=== PATIENT | male | born 1950 | race Caucasian/White ===

== ENCOUNTER → 2017-12-04 | Outpatient (CLI) | payer MEDICARE ==
[2017-12-04 08:35] LABS: HCT 39.3 % (39.0-53.0); HGB 12.8 gm/dL (13.0-17.5); Hypochromasia Slight; MCH 28.4 pg (25.0-35.0); MCHC 32.6 g/dL (31.0-37.0); Mean Platelet Volume 7.1; Platelet Count 403 k/uL (150-450); RBC 4.51 m/uL (4.30-5.90); RDW 14.4 % (11.5-15.5)
[2017-12-04 08:44] LABS: Anion Gap 11 mmol/L; Blood Urea Nitrogen 22 mg/dL (9-20); Carbon Dioxide 27 mmol/L (22-30); Chloride 101 mmol/L (98-107); Glucose 111 mg/dL (74-99); Potassium 4.9 mmol/L (3.5-5.1); Sodium 139 mmol/L (137-145)
== END | disposition home or self-care (01) ==
LOC: LABWHC1 08:06
PROVIDERS: ATTEND Internal Medicine Interventional Cardiology
DX: I25.10 Atherosclerotic heart disease of native coronary artery without angina pectoris (principal); I10 Essential (primary) hypertension
CPT/HCPCS: 36415; 80048; 85027

== ENCOUNTER → 2017-12-14 | Outpatient (CLI) | payer MEDICARE ==
--- NOTE | 2017-12-15 20:50 | CT ---
EXAMINATION TYPE: CT abdomen pelvis w con DATE OF EXAM: 12/14/2017 COMPARISON: NONE HISTORY: c/o left sided abdominal pain X 1 month, weight loss, loss of appetite, change in bowel habi ts. CT DLP: 839.5 mGycm Automated exposure control for dose reduction was used. TECHNIQUE: Helical acquisition of images from the lung bases through the pelvis have been completed. CONTRAST: Performed with Oral Contrast and with IV Contrast, patient injected with 100 mL of Isovue 300. FINDINGS: Along the right hemidiaphragm there are soft tissue nodules present, there is associated as cites at the dome of the liver, omental caking is present. LUNG BASES: Indeterminate soft tissue pulmonary nodules are present at the lung bases, largest at the left lung base measures approximately 12 mm. There is a small left pleural effusion. Patient is post median sternotomy. Coronary artery calcifications present.. AORTA: No significant abnormality is appreciated. LIVER/GB: Liver shows low attenuation focus in the inferior right lobe measuring 8 to 9 mm. Dependent high density present within the gallbladder compatible with stones. PANCREAS: No significant abnormality is seen. SPLEEN: No significant abnormality is seen. ADRENALS: No significant abnormality is seen. KIDNEYS: No significant abnormality is seen. REPRODUCTIVE ORGANS: Prostate is enlarged. There is some associated calcifications. BOWEL: Diverticular changes associated with the sigmoid colon. FREE AIR: No Free Air visible. ASCITES: Moderate ascites is present, ascites extends into the right inguinal canal, there is right inguinal hernia. PELVIC ADENOPATHY: None visualized. RETROPERITONEAL ADENOPATHY: No Retroperitoneal Adenopathy visible. URINARY BLADDER: No significant abnormality is seen. OSSEOUS STRUCTURES: No significant abnormality is seen. IMPRESSION: FINDINGS COMPATIBLE WITH METASTATIC DISEASE. ASCITES. CHOLELITHIASIS.
== END | disposition home or self-care (01) ==
LOC: RADCTMAIN 18:38
PROVIDERS: ATTEND Internal Medicine
DX: K80.20 Calculus of gallbladder without cholecystitis without obstruction (principal); R18.8 Other ascites; R63.4 Abnormal weight loss
CPT/HCPCS: 74177; Q9967

== ENCOUNTER 2017-12-20 12:10 | Day surgery (SDC) | payer MEDICARE ==
[2017-12-20 12:59] VITALS: RESP 16; TEMP 97.5
[2017-12-20 13:00] LABS: Platelet Count 421 k/uL (150-450)
[2017-12-20 13:07] LABS: INR 1.1 (<1.2); Prothrombin Time 10.5 sec (9.0-12.0)
--- NOTE | 2017-12-20 14:54 | US ---
EXAMINATION TYPE: US paracentesis abd w/image DATE OF EXAM: 12/20/2017 COMPARISON: NONE HISTORY: Ascites. PROCEDURE: Maximal barrier technique was utilized. The skin overlying a suitable pocket of fluid was localized with ultrasound and the overlying skin was prepped and draped. Ultrasound was utilized with sterile technique. Lidocaine was used for local anesthesia and a skin mabel made with a scalpel. Catheter was advanced under direct ultrasound guidance into a suitable pocket of fluid and approximately 4.8 liter s of yellow fluid were removed. Catheter was withdrawn and hemostasis achieved. There is no immedia te complication; the patient is discharged in stable condition. IMPRESSION: STATUS POST ULTRASOUND GUIDED PARACENTESIS FOR PALLIATION OF ASCITES. THIS PROCEDURE WA S PERFORMED BY THE UNDERSIGNED. Specimen sent for laboratory analysis.
[2017-12-20 14:57] VITALS: BP 130/58; PULSE 71
[2017-12-20 17:29] LABS: Color,BF Yellow
[2017-12-20 17:30] LABS: Appearance,BF Clear; Nucleated Cells, Body Fluid 223 /uL; RBC, Body Fluid 240 /uL
[2017-12-20 17:33] LABS: Mononuclear WBC,Body Fluid 98 %; Polynuclear WBC,Body Fluid 2 %; Total Cells Counted,Body Fluid 100
[2017-12-21 00:53] LABS: Total Protein, Body Fluid 4600 mg/dL
== END 2017-12-20 15:03 | disposition home or self-care (01) ==
LOC: RADPROMAIN 12:10
PROVIDERS: ATTEND Internal Medicine
DX: R18.8 Other ascites (principal)
CPT/HCPCS: 49083; 82945; 83615; 84157; 85049; 85610; 87070; 87205; 88108; 88305; 89050

== ENCOUNTER 2018-01-11 07:28 | Day surgery (SDC) | payer MEDICARE ==
[2018-01-08 11:52] VITALS: BMI 24.3
[~2018-01-11 07:28] MED LIST: LACTATED RINGERS 1,000 ML IV SCH; LIDOCAINE 1% 20 ML VIAL (10MG/ML) FOR IV START INTRADERMA PRN; MIDAZOLAM 2 MG/2 ML VIAL IV PRN
[2018-01-11 08:02] VITALS: TEMP 97.8
[2018-01-11 08:23] LABS: Glucose,Whole Blood 113 mg/dL (75-99)
[2018-01-11] MEDS ORDERED: LIDOCAINE 1% INJ 10MG/ML (20 ML MDV) ONE (08:40)
[2018-01-11] MEDS ORDERED: GLYCOPYRROLATE 0.2 MG/ML 2 ML VIAL ONE (08:40)
[2018-01-11] MEDS ORDERED: PROPOFOL 10 MG/ML 20 ML VIAL IV ONE (08:40)
--- NOTE | 2018-01-11 09:13 | P.PCN ---
Date of Procedure: 01/11/18 Procedure(s) Performed: Brief history: Patient is a pleasant 67-year-old white male, scheduled for an elective upper endoscopy as well as colonoscopy as a part of evaluation of abdominal pain, new onset ascites. The patient recently had a CT of the abdomen and pelvis done for abdominal distention in November 2017 and was noted to have new onset ascites and omental caking suspicious for malignancy. He had diagnostic paracentesis done and 4 L of fluid was aspirated for cytology was negative for malignancy. He scheduled for an upper endoscopy as well as colonoscopy to evaluate further Procedure performed: Esophagogastroduodenoscopy with multiple biopsies Colonoscopy Preoperative diagnosis: Abdominal pain and weight loss New onset ascites, CAT scan of the abdomen showing omental caking suspicious for metastasis Anesthesia: MAC Procedure: After informed consent was obtained from the patient was brought into the endoscopy unit and IV sedation was administered by anesthesia under continuous monitoring. Initially upper endoscopy was done. The Olympus GF 160 video endoscope was inserted inserted into the mouth and esophagus intubated without any difficulty and was gradually advanced into the stomach and duodenum and carefully examined. The bulb and second part of the duodenum appeared normal. The scope was then withdrawn into the stomach adequately insufflated with air and upon careful examination the mucosa of the antrum and body showed diffuse mucosal thickening with erythema and multiple biopsies were done to rule out infiltrating neoplasm/lienitis plastica. The stomach was adequately insufflated with air. There were no mass lesions identified. No ulcerations seen. The scope was then withdrawn into the esophagus. The GE junction was located at 40 cm to the incisors. It appeared regular with no erythema erosions or ulcerations. Rest of the esophagus appeared normal. Patient tolerated the procedure well. At this time the patient continued to remain sedation. Initial digital rectal examination was normal. Olympus CF 160 video colonoscope was then inserted into the rectum and gradually advanced to the cecum without any difficulty. Careful examination was performed as the scope was gradually being withdrawn. The prep was excellent. The cecum, ascending colon, transverse colon, descending colon, sigmoid colon and rectum appeared normal. Moderate sigmoid diverticulosis seen. Retroflexion was performed in the rectum and no lesions were noted. Patient tolerated the procedure well. Impression: 1. Upper endoscopy revealed diffuse mucosal thickening involving the body and antrum of the stomach with some friability and multiple biopsies were done to rule out infiltrating neoplasm 2. Colonoscopy revealed scattered sigmoid diverticulosis but no evidence of colitis or colorectal neoplasia Recommendations: Findings of this examination were discussed with the patient as well as his family. He was advised to follow with the biopsy results. He will be seen in office in 1 week.
[2018-01-11 09:15] VITALS: RESP 16
[2018-01-11 09:28] VITALS: BP 111/69; PULSE 82
== END 2018-01-11 10:10 | disposition home or self-care (01) ==
LOC: ORWHC2ENDO 07:28
PROVIDERS: ATTEND Internal Medicine Gastroenterology
DX: C16.2 Malignant neoplasm of body of stomach (principal); K57.30 Diverticulosis of large intestine without perforation or abscess without bleeding; R18.8 Other ascites; I25.10 Atherosclerotic heart disease of native coronary artery without angina pectoris; I25.2 Old myocardial infarction; I10 Essential (primary) hypertension; E78.5 Hyperlipidemia, unspecified; E11.9 Type 2 diabetes mellitus without complications; Z95.1 Presence of aortocoronary bypass graft; Z79.82 Long term (current) use of aspirin; Z79.84 Long term (current) use of oral hypoglycemic drugs; Z79.899 Other long term (current) drug therapy; Z88.0 Allergy status to penicillin; Z91.048 Other nonmedicinal substance allergy status
CPT/HCPCS: 88305; 88342; 45378; 43239; J2001; J2704

== ENCOUNTER 2018-02-01 10:30 | Day surgery (SDC) | payer MEDICARE ==
[2018-01-31 12:01] VITALS: BMI 25.8
[2018-02-01 09:46] VITALS: TEMP 97.9
--- NOTE | 2018-02-01 10:14 | P.GSHP ---
History of Present Illness H&P Date: 02/01/18 Chief Complaint: Left supraclavicular adenopathy 59-year-old male recently diagnosed with suspected gastric cancer. Was seen by oncology 2 days ago and found to have a suspicious lymph node in the left supraclavicular region. Patient has had weight loss. Mild abdominal discomfort. Some bloating. Patient himself did not notice this lymph node. Past Medical History Past Medical History: Coronary Artery Disease (CAD), Cancer, Chest Pain / Angina , Diabetes Mellitus, Hyperlipidemia, Hypertension, Myocardial Infarction ([place]), Vascular Disorder Additional Past Medical History / Comment(s): newly dx. w/stomach cancer Last Myocardial Infarction Date:: 1992 History of Any Multi-Drug Resistant Organisms: None Reported Past Surgical History: Coronary Bypass/CABG, Heart Catheterization Additional Past Surgical History / Comment(s): CABG 1992, per pt 5 quarts drained from abdomen 12/20/17, EGD,colonoscopy Past Anesthesia/Blood Transfusion Reactions: No Reported Reaction Smoking Status: Former smoker - Past Family History Father Family Medical History: Cancer Medications and Allergies Home Medications Medication Instructions Recorded Confirmed Type Aspirin 325 mg PO DAILY 04/15/15 01/31/18 History Atenolol [Tenormin] 50 mg PO BID 04/15/15 01/31/18 History Atorvastatin Calcium [Lipitor] 40 mg PO W/SUPPER 04/15/15 01/31/18 History Enalapril Maleate [Vasotec] 5 mg PO W/SUPPER 04/15/15 01/31/18 History Folic Acid 400 mcg PO DAILY 04/15/15 01/31/18 History Vitamin B Complex 1 each PO DAILY 04/15/15 01/31/18 History metFORMIN HCL [Glucophage] 500 mg PO W/SUPPER 04/15/15 01/31/18 History Isosorbide Mononitrate ER [Imdur] 60 mg PO DAILY 12/18/17 01/31/18 History amLODIPine [Norvasc] 5 mg PO DAILY 12/18/17 01/31/18 History Isosorbide Mononitrate ER [Imdur] 30 mg PO AC-SUPPER 12/20/17 01/31/18 History Allergies Allergy/AdvReac Type Severity Reaction Status Date / Time Iodine and Iodide Containing Allergy Rash/Hives Verified 02/01/18 09:15 Produc mold Allergy per Verified 02/01/18 09:15 allergy testing Penicillins Allergy Unknown Verified 02/01/18 09:15 Childhood Surgical - Exam Vital Signs Temp Pulse Resp BP Pulse Ox 97.9 F 72 18 130/65 98 02/01/18 09:28 02/01/18 09:28 02/01/18 09:28 02/01/18 09:28 02/01/18 09:28 Physical exam: General: Well-developed, well-nourished HEENT: Normocephalic, sclerae nonicteric, left supraclavicular lymph node firm measuring 7-8 mm in size Abdomen: Nontender, nondistended Extremities: No edema Neuro: Alert and oriented Assessment and Plan (1) Lymphadenopathy Narrative/Plan: Will proceed with lymph node biopsy at this time. Risks of bleeding infection and nerve injury were reviewed. He understands and wishes to proceed. Status: Acute Code(s): R59.1 - GENERALIZED ENLARGED LYMPH NODES SNOMED Code( s): 38333816
[~2018-02-01 10:30] MED LIST changes: +DEXAMETHASONE SOD PHOSPHATE 10 MG/ML 1 ML VIAL IV ONE; +HEPARIN SODIUM,PORCINE 5,000 UNIT/ML 1 ML VIAL SQ ONE; +HYDROmorphone 0.5 MG/0.5 ML SYRINGE IVP PRN; -MIDAZOLAM 2 MG/2 ML VIAL IV PRN; +MIDAZOLAM 2 MG/2 ML VIAL ONE; +PROPOFOL 10 MG/ML 20 ML VIAL IV ONE; +Pre Op ABX Message 1 EACH MISC MISCELLANE ONE; +ROPIVACAINE 5 MG/ML 30 ML VIAL MISCELLANE ONE; +fentaNYL (PF) 50 MCG/ML 2 ML AMP ONE
[2018-02-01 10:48] LABS: Glucose,Whole Blood 105 mg/dL (75-99)
[2018-02-01] MEDS ORDERED: HYDROcodone/APAP 5-325MG 1 EACH TAB PO PRN (11:13)
[2018-02-01] MEDS ORDERED: NALOXONE 0.4 MG/ML 1 ML VIAL IV PRN (11:13)
[2018-02-01 11:15] VITALS: BP 113/66; PULSE 79; RESP 16
--- NOTE | 2018-02-01 11:17 | P.OP ---
Date of Procedure: 02/01/18 Procedure(s) Performed: PREOPERATIVE DIAGNOSIS: Left supra clavicular adenopathy POSTOPERATIVE DIAGNOSIS: Same PROCEDURE: Excision left supraclavicular lymph node SURGEON: Jewell EBL: Minimal ANESTHESIA: Sedation COMPLICATIONS: None OPERATIVE PROCEDURE: Patient placed in the operating table in the supine position. The patient's neck was prepped and draped in usual sterile fashion. A transverse incision was made overlying the lower aspect of the left neck using the scalpel. The platysmal layer was divided using electrocautery. Blunt dissection then ensued. A small lymph node and subsequently the palpable lymph node were both identified and excised using blunt dissection with spot cautery. These were sent to pathology fresh. The largest lymph node measured about 9 mm in size. The subcutaneous tissues were closed using 3-0 Vicryl sutures and the skin using 4-0 Monocryl sutures. Dermabond was then used. DISPOSITION: Stable to recovery room
== END 2018-02-01 12:30 | disposition home or self-care (01) ==
LOC: OR 10:30
PROVIDERS: ATTEND Surgery
DX: C77.0 Secondary and unspecified malignant neoplasm of lymph nodes of head, face and neck (principal); C16.9 Malignant neoplasm of stomach, unspecified; I25.119 Atherosclerotic heart disease of native coronary artery with unspecified angina pectoris; I10 Essential (primary) hypertension; Z87.891 Personal history of nicotine dependence; E78.5 Hyperlipidemia, unspecified; E11.9 Type 2 diabetes mellitus without complications; Z95.1 Presence of aortocoronary bypass graft; I25.2 Old myocardial infarction; Z79.84 Long term (current) use of oral hypoglycemic drugs; Z79.82 Long term (current) use of aspirin; Z79.899 Other long term (current) drug therapy; Z88.0 Allergy status to penicillin; Z91.048 Other nonmedicinal substance allergy status; Z91.09 Other allergy status, other than to drugs and biological substances
CPT/HCPCS: 38500; 88342; 88307; 88341; J2250; J1644; J1100; J3010; J2795; J2704

== ENCOUNTER → 2018-02-02 | Outpatient (CLI) | payer MEDICARE ==
--- NOTE | 2018-02-02 19:27 | PE ---
EXAMINATION TYPE: PET CT fusion skull to thigh DATE OF EXAM: 02/02/2018 COMPARISON: CT abdomen and pelvis December 14, 2017 HISTORY: Gastric cancer newly diagnosed December 2017 TECHNIQUE: Following the intravenous administration of 12.243 mCi of F-18 FDG, whole body images are performed from the skull base to the midthigh. Images are reviewed on the computer in the coronal, axial, and sagittal planes. Reconstructed rotating images are created on independent workstation and reviewed on the computer. A noncontrast CT is performed in conjunction with the PET scan. SCAN: Initial Scan FINDINGS: SKULL BASE AND NECK: No suspicious hypermetabolic uptake is seen. CHEST, MEDIASTINUM, AND HILAR REGION: No suspicious hypermetabolic uptake is present. There are sligh tly more prominent small left greater than right pleural effusions on current study. ABDOMEN AND PELVIS: There is redemonstration of moderate to severe diffuse abdominal and pelvic ascit es. There are hypermetabolic nodular implants just below right hemidiaphragm redemonstrated, for refe rence axial image 114 max SUV is 5.71. There are additional hypermetabolic, peritoneal implants anteriorly in the upper to midabdomen is pro minent level is near axial image 185 to right of midline where max SUV is 4.73. There is slightly mor e prominent hypermetabolic uptake in left sided peritoneal deposits anteriorly axial image 167 with m ax SUV of 5.56. There is hypermetabolic uptake superior hepatogastric region near axial image 136 likely correspondin g to adenopathy at this level seen better on recent contrast-enhanced CT with extension inferiorly to involve the perigastric region. Max SUV at this level is 5.15. There is asymmetric thickening right rectum with hypermetabolic uptake, max SUV is 7.29 axial image 2 52. There is some diffuse uptake throughout portions of bowel. Focal suspicious uptake within stomach is not well visualized. OSSEOUS STRUCTURES: No suspicious hypermetabolic uptake in osseous structures is seen. OTHER CT: There is mild to moderate calcified plaque bilateral carotid bulbs, right greater than left . Post CABG changes with mediastinal clips and sternal wires is identified. Moderate left atrial dilata tion is redemonstrated. There are suspicious scattered bilateral lung nodules most prominent in the lower lobes, for referenc e 3 are noted on axial image 106 for reference. Largest on the left laterally measures 1.3 x 0.7 cm w ithout abnormal hypermetabolic uptake. Hematogenous metastatic disease needs to BE considered despite lack of uptake due to small size of nodules. Numerous calcified gallstones are seen dependently in the gallbladder. Thin partially calcified rim laterally and spleen axial image 148 is incidentally noted. There is severe calcified plaque of aorta extending into branch vessels. There is prominent diverticulosis in the left and sigmoid colon. Mild to moderate multilevel spurring in the spine is present. . IMPRESSION: Recurrent moderate to large amount of abdominal and pelvic ascites with peritoneal carcin omatosis identified. Suspicious lesion noted right rectum, correlate with direct digital rectal exam. Does not appear extraluminal or drop lesion. Suspect early hematogenous metastatic disease to the vishal ng bases with several scattered parenchymal subcentimeter nodules, they do not show hypermetabolic up take currently. Increasing small left and right pleural effusions are noted.
== END | disposition home or self-care (01) ==
LOC: RADPETMAIN 15:16
PROVIDERS: ATTEND Internal Medicine Hematology & Oncology
DX: C16.2 Malignant neoplasm of body of stomach (principal); R18.8 Other ascites; J90 Pleural effusion, not elsewhere classified
CPT/HCPCS: 78815; A9552

== ENCOUNTER 2018-02-21 11:47 | Day surgery (SDC) | payer MEDICARE ==
[2018-02-20 08:52] VITALS: BMI 24.7
[~2018-02-21 11:47] MED LIST changes: -DEXAMETHASONE SOD PHOSPHATE 10 MG/ML 1 ML VIAL IV ONE; -HEPARIN SODIUM,PORCINE 5,000 UNIT/ML 1 ML VIAL SQ ONE; -HYDROmorphone 0.5 MG/0.5 ML SYRINGE IVP PRN; -LIDOCAINE 1% 20 ML VIAL (10MG/ML) FOR IV START INTRADERMA PRN; +MIDAZOLAM 2 MG/2 ML VIAL IV PRN; -MIDAZOLAM 2 MG/2 ML VIAL ONE; +ONDANSETRON 4 MG/2 ML VIAL IVP ONE; -PROPOFOL 10 MG/ML 20 ML VIAL IV ONE; -ROPIVACAINE 5 MG/ML 30 ML VIAL MISCELLANE ONE; +fentaNYL (PF) 50 MCG/ML 2 ML AMP IV PRN; -fentaNYL (PF) 50 MCG/ML 2 ML AMP ONE
[2018-02-21 12:14] VITALS: TEMP 96.9
[2018-02-21] MEDS ORDERED: CLINDAMYCIN 600 MG in DEXTROSE 5% IN WATER 50 ML IVPB STA ×2 (12:14)
--- NOTE | 2018-02-21 12:15 | P.GSHP ---
History of Present Illness H&P Date: 02/21/18 Chief Complaint: Metastatic gastric cancer Patient here today for Port-A-Cath placement. Recently diagnosed with gastric cancer and underwent a left supraclavicular lymph node biopsy one week ago which also showed metastatic disease. Patient to start chemotherapy next week or so. Past Medical History Past Medical History: Coronary Artery Disease (CAD), Cancer, Chest Pain / Angina , Diabetes Mellitus, Hyperlipidemia, Hypertension, Myocardial Infarction ([place]), Vascular Disorder Additional Past Medical History / Comment(s): Stomach cancer. Last Myocardial Infarction Date:: 1992 History of Any Multi-Drug Resistant Organisms: None Reported Past Surgical History: Coronary Bypass/CABG, Heart Catheterization Additional Past Surgical History / Comment(s): CABG 1992, per pt 5 quarts drained from abdomen 12/20/17, drained again 02/07/18, EGD, colonoscopy, lymph node removed from left side of neck. Past Anesthesia/Blood Transfusion Reactions: No Reported Reaction Past Psychological History: No Psychological Hx Reported Smoking Status: Former smoker Past Alcohol Use History: Occasional Additional Past Alcohol Use History / Comment(s): Quit smoking in 1992. Past Drug Use History: None Reported - Past Family History Father Family Medical History: Cancer Additional Family Medical History / Comment(s): Lung cancer Medications and Allergies Home Medications Medication Instructions Recorded Confirmed Type Aspirin 325 mg PO DAILY 04/15/15 02/21/18 History Atenolol [Tenormin] 50 mg PO BID 04/15/15 02/21/18 History Atorvastatin Calcium [Lipitor] 40 mg PO W/SUPPER 04/15/15 02/21/18 History Enalapril Maleate [Vasotec] 5 mg PO W/SUPPER 04/15/15 02/21/18 History Folic Acid 400 mcg PO DAILY 04/15/15 02/21/18 History Vitamin B Complex 1 each PO DAILY 04/15/15 02/21/18 History metFORMIN HCL [Glucophage] 500 mg PO W/SUPPER 04/15/15 02/21/18 History Isosorbide Mononitrate ER [Imdur] 60 mg PO QAM 12/18/17 02/21/18 History amLODIPine [Norvasc] 5 mg PO QAM 12/18/17 02/21/18 History Isosorbide Mononitrate ER [Imdur] 30 mg PO AC-SUPPER 12/20/17 02/21/18 History Allergies Allergy/AdvReac Type Severity Reaction Status Date / Time Iodine and Iodide Containing Allergy Rash/Hives Verified 02/21/18 12:03 Produc mold Allergy per Verified 02/21/18 12:03 allergy testing Penicillins Allergy Unknown Verified 02/21/18 12:03 Childhood Surgical - Exam Physical exam: General: Well-developed, slightly malnourished appearing HEENT: Normocephalic, sclerae nonicteric Abdomen: Nontender, nondistended Extremities: No edema Neuro: Alert and oriented Assessment and Plan (1) Gastric cancer Narrative/Plan: Will proceed with Port-A-Cath placement at this time. Risks of bleeding, infection, DVT, pneumothorax, catheter malfunction, anesthesia related complications were discussed. The patient understands and wishes to proceed. Current Visit: Yes Status: Acute Code(s): C16.9 - MALIGNANT NEOPLASM OF STOMACH, UNSPECIFIED SNOMED Code(s): 001349079
[2018-02-21] MEDS ORDERED: LIDOCAINE 1% 20 ML VIAL (10MG/ML) FOR IV START INTRADERMA ONE (12:18)
[2018-02-21] MEDS ORDERED: DEXAMETHASONE SOD PHOS (MDV) 100 MG/10 ML VIAL IV ONE (12:19)
[2018-02-21] MEDS ORDERED: HEPARIN SODIUM,PORCINE 5,000 UNIT/ML 1 ML VIAL SQ ONE (12:20)
[2018-02-21 12:22] LABS: Glucose,Whole Blood 91 mg/dL (75-99)
[2018-02-21] MEDS ORDERED: ePHEDrine SULFATE/0.9% NACL/PF 50 MG/5 ML SYRINGE IV ONE (12:57)
[2018-02-21] MEDS ORDERED: PHENYLEPHRINE-0.9% NACL SYG 1 MG/10 ML SYRINGE ONE (12:57)
[2018-02-21] MEDS ORDERED: MIDAZOLAM 2 MG/2 ML VIAL ONE (12:57)
[2018-02-21] MEDS ORDERED: LIDOCAINE 1% INJ 10MG/ML (20 ML MDV) ONE (12:57)
[2018-02-21] MEDS ORDERED: fentaNYL (PF) 50 MCG/ML 2 ML AMP ONE (12:57)
[2018-02-21] MEDS ORDERED: PROPOFOL 10 MG/ML 20 ML VIAL IV ONE (12:57)
[2018-02-21] MEDS ORDERED: HEPARIN SODIUM,PORCINE 100 UNIT/ML 5 ML VIAL IV ONE (13:21)
[2018-02-21] MEDS ORDERED: LIDOCAINE 1% INJ 10MG/ML (20 ML MDV) SQ ONE (13:22)
[2018-02-21] MEDS ORDERED: NALOXONE 0.4 MG/ML 1 ML VIAL IV PRN (14:16)
[2018-02-21] MEDS ORDERED: traMADol 50 MG TAB PO PRN (14:16)
[2018-02-21 14:19] VITALS: RESP 16
--- NOTE | 2018-02-21 14:20 | P.OP ---
Date of Procedure: 02/21/18 Procedure(s) Performed: PREOPERATIVE DIAGNOSIS: Metastatic gastric cancer POSTOPERATIVE DIAGNOSIS: Same PROCEDURE: Port-A-Cath placement SURGEON: Jewell EBL: Minimal ANESTHESIA: Sedation COMPLICATIONS: None OPERATIVE PROCEDURE: Patient was brought and placed on the operative table in the supine position. The patient was sedated per anesthesia that time. The chest and neck were prepped and draped in usual sterile fashion. We chose the left side for 2 reasons. The patient had a small abrasion in the left shoulder and also the patient had requested the ability to go hunting in the near future. The ultrasound probe was used to identify the location of the left internal jugular vein. The skin was localized with lidocaine. The Seldinger needle was advanced into the IJ under ultrasound guidance. The wire was advanced through the needle under fluoroscopic guidance into the superior vena cava. It should be noted that navigated into the SVC was challenging. The guidewire frequently was trying to go up into the right internal jugular and right subclavian. A port pocket was created in the left infraclavicular location. The catheter was tunneled from the wire entrance site to the port pocket. The port was then connected to the catheter. The dilator introducer was threaded over the guidewire. I could not advance the dilator and introducer into the SVC given tortuosity of the innominate. The guidewire and dilator were then removed. The catheter was advanced through the introducer and introducer was then removed. The tip was able to be advanced into the proximal innominate vein. We were unable to advance the catheter tip into the atrium or SVC proper. The port was flushed with both saline and a Hep-Lock solution. There was good flow both in and out of the port. The port was sutured in underlying tissues using 3-0 silk sutures. The subcutaneous tissues were reapproximated using 3-0 Vicryl sutures and the skin at both locations using 4-0 Monocryl sutures. Steri-Strips and sterile dressings then applied. DISPOSITION: Stable to recovery room
--- NOTE | 2018-02-21 14:30 | FL ---
Fluoroscopy INDICATION: Pain FINDINGS: Fluoroscopy time: 1.56 minutes Images obtained: 3. IMPRESSIONS: 1. Documentation of fluoroscopy.
--- NOTE | 2018-02-21 14:53 | XR ---
EXAMINATION TYPE: XR chest 1V confirm line [facility] DATE OF EXAM: 02/21/2018 COMPARISON: Nuclear medicine PET/CT dated 02/02/2018 HISTORY: Port placement TECHNIQUE: Single frontal view of the chest is obtained. FINDINGS: There is been interval placement of a port in the left pectoral region, catheter courses v ia the left internal jugular approach, distal tip near the confluence of the right subclavian and int ernal jugular veins in a cephalad direction. No evident pneumothorax. Patient is post median sternoto my. Lung volumes are low. Patchy bibasilar density is noted. Patient's lung nodules not well seen on plain film. IMPRESSION: No evident complication status post central venous catheter placement. Expiratory rotate d exam.
[2018-02-21 15:21] VITALS: BP 103/65; PULSE 84
== END 2018-02-21 15:37 | disposition home or self-care (01) ==
LOC: OR 11:47
PROVIDERS: ATTEND Surgery
DX: C78.89 Secondary malignant neoplasm of other digestive organs (principal); C77.0 Secondary and unspecified malignant neoplasm of lymph nodes of head, face and neck; I25.119 Atherosclerotic heart disease of native coronary artery with unspecified angina pectoris; E11.9 Type 2 diabetes mellitus without complications; R18.8 Other ascites; I25.2 Old myocardial infarction; I10 Essential (primary) hypertension; E78.5 Hyperlipidemia, unspecified; Z95.1 Presence of aortocoronary bypass graft; Z87.891 Personal history of nicotine dependence; Z79.82 Long term (current) use of aspirin; Z79.899 Other long term (current) drug therapy; Z88.0 Allergy status to penicillin; Z91.041 Radiographic dye allergy status; Z79.84 Long term (current) use of oral hypoglycemic drugs
CPT/HCPCS: 77001; 36561; C1788; J2250; J1644; J1642; J2405; J2001; J3010; J1100; J2370; J2704

== ENCOUNTER 2018-03-03 18:04 | Inpatient (IN) | payer MEDICARE ==
--- NOTE | 2018-03-03 19:12 | XR ---
EXAMINATION TYPE: XR chest 2V DATE OF EXAM: 03/03/2018 COMPARISON: 02/21/2018 HISTORY: Short of breath TECHNIQUE: Frontal and lateral views of the chest are obtained. FINDINGS: There is coarse interstitial density in both lungs. There is poor inspiration. Pulmonary v ascularity is difficult to evaluate because of the lung disease. There is left-sided central venous c atheter with tip in superior vena cava. IMPRESSION: Pulmonary interstitial fibrosis with slight improved aeration of the lungs compared to l ast exam. No definite heart failure.
[2018-03-03 19:13] LABS: Anisocytosis Slight; Basophils % (A) 0 %; Eosinophils % (A) 0 %; HCT 28.8 % (39.0-53.0); HGB 9.2 gm/dL (13.0-17.5); Hypochromasia Slight; Lymphocytes # (A) 0.1 k/uL (1.0-4.8); Lymphocytes % (A) 3 %; MCHC 32.1 g/dL (31.0-37.0); MCV 87.3 fL (80.0-100.0); Mean Platelet Volume 7.5; Monocytes # (A) 0.1 k/uL (0-1.0); Monocytes % (A) 2 %; Neutrophils # (A) 4.9 k/uL (1.3-7.7); Neutrophils % (A) 95 %; Platelet Count 205 k/uL (150-450); RDW 16.5 % (11.5-15.5); WBC 5.2 k/uL (3.8-10.6)
[2018-03-03 19:25] LABS: ALT 20 U/L (21-72); AST 25 U/L (17-59); Albumin 2.7 g/dL (3.5-5.0); Alkaline Phosphatase 66 U/L (38-126); Anion Gap 9 mmol/L; Blood Urea Nitrogen 24 mg/dL (9-20); Calcium 7.8 mg/dL (8.4-10.2); Carbon Dioxide 24 mmol/L (22-30); Chloride 104 mmol/L (98-107); Glucose 184 mg/dL (74-99); Potassium 3.8 mmol/L (3.5-5.1); Sodium 137 mmol/L (137-145); Total Bilirubin 0.6 mg/dL (0.2-1.3); Total Protein 5.4 g/dL (6.3-8.2)
[2018-03-03 19:29] LABS: INR 1.1 (<1.2); Partial Thromboplastin Time 22.4 sec (22.0-30.0)
[2018-03-03 19:36] LABS: Creatine Kinase 47 U/L (55-170)
[2018-03-03 19:48] LABS: Creatine Kinase MB 0.3 ng/mL (0.0-2.4); Troponin I <0.012 ng/mL (0.000-0.034)
--- NOTE | 2018-03-03 20:07 | ED ---
General Adult HPI - General Chief complaint: Shortness of Breath Stated complaint: SOB,Chills,Shaking Time Seen by Provider: 03/03/18 19:10 Source: patient Mode of arrival: wheelchair Limitations: no limitations - History of Present Illness Initial comments: Miguelito is a 67-year-old male with a history significant for stomach cancer currently undergoing chemotherapy who presents to the emergency department today for evaluation of fever, fatigue and shortness of breath. Patient reports that he underwent first round of chemotherapy which ended last week. He reports he felt good for a few days and today in fact was able to drink cold water without having any sensitivity which is significant improvement. However throughout the day he's developing progressively worsening fever reports a fever of 102 at home and has began to feel short of breath. The patient has been taking Motrin 800 mg at home for pain associated with cancer, despite taking this he has had persistent fevers, chills nausea and a single episode of nonbloody nonbilious emesis today. Patient reports he feels short of breath and feels as though he cannot catch his breath, he denies any productive cough, chest pain or palpitations. He is a former smoker but does not have difficulty breathing mostly time. - Related Data Home Medications Medication Instructions Recorded Confirmed Aspirin 325 mg PO DAILY 04/15/15 02/21/18 Atenolol [Tenormin] 50 mg PO BID 04/15/15 02/21/18 Atorvastatin Calcium [Lipitor] 40 mg PO W/SUPPER 04/15/15 02/21/18 Enalapril Maleate [Vasotec] 5 mg PO W/SUPPER 04/15/15 02/21/18 Folic Acid 400 mcg PO DAILY 04/15/15 02/21/18 Vitamin B Complex 1 each PO DAILY 04/15/15 02/21/18 metFORMIN HCL [Glucophage] 500 mg PO W/SUPPER 04/15/15 02/21/18 Isosorbide Mononitrate ER [Imdur] 60 mg PO QAM 12/18/17 02/21/18 amLODIPine [Norvasc] 5 mg PO QAM 12/18/17 02/21/18 Isosorbide Mononitrate ER [Imdur] 30 mg PO AC-SUPPER 12/20/17 02/21/18 Previous Rx's Medication Instructions Recorded traMADol HCl [Ultram] 50 mg PO Q6H PRN #12 tab 02/21/18 Allergies Allergy/AdvReac Type Severity Reaction Status Date / Time Iodine and Iodide Containing Allergy Rash/Hives Verified 03/03/18 18:14 Produc mold Allergy per Verified 03/03/18 18:14 allergy testing Penicillins Allergy Unknown Verified 03/03/18 18:14 Childhood Review of Systems ROS Statement: Those systems with pertinent positive or pertinent negative responses have been documented in the HPI. ROS Other: All systems not noted in ROS Statement are negative. Past Medical History Past Medical History: Coronary Artery Disease (CAD), Cancer, Chest Pain / Angina , Diabetes Mellitus, Hyperlipidemia, Hypertension, Myocardial Infarction (HI), Vascular Disorder Additional Past Medical History / Comment(s): Stomach cancer. Last Myocardial Infarction Date:: 1992 History of Any Multi-Drug Resistant Organisms: None Reported Past Surgical History: Coronary Bypass/CABG, Heart Catheterization Additional Past Surgical History / Comment(s): CABG 1992, per pt 5 quarts drained from abdomen 12/20/17, drained again 02/07/18, EGD, colonoscopy, lymph node removed from left side of neck. Past Anesthesia/Blood Transfusion Reactions: No Reported Reaction Past Psychological History: No Psychological Hx Reported Smoking Status: Former smoker Past Alcohol Use History: Occasional Past Drug Use History: None Reported - Past Family History Father Family Medical History: Cancer Additional Family Medical History / Comment(s): Lung cancer General Exam Limitations: no limitations Course Vital Signs 03/03/18 03/03/18 03/03/18 18:10 18:53 19:45 Temperature 99.9 F H 102.4 F H Pulse Rate 102 H 87 Respiratory 20 20 Rate Blood Pressure 118/60 131/70 O2 Sat by Pulse 94 L 97 Oximetry 03/03/18 03/03/18 20:37 21:30 Temperature 99.0 F Pulse Rate 81 77 Respiratory 16 16 Rate Blood Pressure 119/69 122/63 O2 Sat by Pulse 97 95 Oximetry EKG Findings - EKG Comments: EKG Findings:: EKG obtained at 1823, rate is 99, rhythm is sinus, normal axis, normal intervals, there are no acute ST elevations or depressions. There is noted be a Q-wave and T-wave inversions in lead 3 which is concerning for right heart strain. Medical Decision Making - Medical Decision Making The patient was seen and evaluated, history is obtained from the patient. This is a immunocompromised patient who recently finished chemotherapy for stage IV stomach cancer, presenting to the ER febrile, tachycardic with a heart rate in the 90s despite being on beta blockers, complaints of fevers, chills and shortness of breath. Sepsis workup was ordered. Empiric cefepime was ordered for presumed neutropenic fever. Given the patient's history of cancer and subjective shortness of breath there is high risk for pulmonary embolism, patient was premedicated with Benadryl, Solu-Medrol and Pepcid so that he can receive a CT pulmonary embolism study Labs and imaging were reviewed, chest x-ray with no evidence of infection No leukocytosis or neutropenia was noted, hemoglobin has decreased to 9.2 from 12, this is likely related to chemotherapy CT pulmonary embolism study was negative for any pulmonary embolism. Patchy infiltrate noted, effusions noted Patient was admitted under Dr. Camacho with consult to oncology - Lab Data Result diagrams: 03/03/18 18:45 03/03/18 18:45 Lab Results 03/03/18 03/03/18 03/03/18 Range/Units 18:45 18:45 18:45 WBC 5.2 (3.8-10.6) k/uL RBC 3.30 L (4.30-5.90) m/uL Hgb 9.2 L (13.0-17.5) gm/dL Hct 28.8 L (39.0-53.0) % MCV 87.3 (80.0-100.0) fL MCH 28.0 (25.0-35.0) pg MCHC 32.1 (31.0-37.0) g/dL RDW 16.5 H (11.5-15.5) % Plt Count 205 (150-450) k/uL Neutrophils % 95 % Lymphocytes % 3 % Monocytes % 2 % Eosinophils % 0 % Basophils % 0 % Neutrophils # 4.9 (1.3-7.7) k/uL Lymphocytes # 0.1 L (1.0-4.8) k/uL Monocytes # 0.1 (0-1.0) k/uL Eosinophils # 0.0 (0-0.7) k/uL Basophils # 0.0 (0-0.2) k/uL Hypochromasia Slight Anisocytosis Slight PT (9.0-12.0) sec INR (<1.2) APTT (22.0-30.0) sec Sodium 137 (137-145) mmol/L Potassium 3.8 (3.5-5.1) mmol/L Chloride 104 (98-107) mmol/L Carbon Dioxide 24 (22-30) mmol/L Anion Gap 9 mmol/L BUN 24 H (9-20) mg/dL Creatinine 0.78 (0.66-1.25) mg/dL Est GFR (CKD-EPI)AfAm >90 (>60 ml/min/1.73 sqM) Est GFR (CKD-EPI)NonAf >90 (>60 ml/min/1.73 sqM) Glucose 184 H (74-99) mg/dL Plasma Lactic Acid Ken (0.7-2.0) mmol/L Calcium 7.8 L (8.4-10.2) mg/dL Total Bilirubin 0.6 (0.2-1.3) mg/dL AST 25 (17-59) U/L ALT 20 L (21-72) U/L Alkaline Phosphatase 66 (38-126) U/L Total Creatine Kinase 47 L (55-170) U/L CK-MB (CK-2) 0.3 (0.0-2.4) ng/mL CK-MB (CK-2) Rel Index 0.6 Troponin I <0.012 (0.000-0.034) ng/mL Total Protein 5.4 L (6.3-8.2) g/dL Albumin 2.7 L (3.5-5.0) g/dL 03/03/18 03/03/18 Range/Units 18:45 18:45 WBC (3.8-10.6) k/uL RBC (4.30-5.90) m/uL Hgb (13.0-17.5) gm/dL Hct (39.0-53.0) % MCV (80.0-100.0) fL MCH (25.0-35.0) pg MCHC (31.0-37.0) g/dL RDW (11.5-15.5) % Plt Count (150-450) k/uL Neutrophils % % Lymphocytes % % Monocytes % % Eosinophils % % Basophils % % Neutrophils # (1.3-7.7) k/uL Lymphocytes # (1.0-4.8) k/uL Monocytes # (0-1.0) k/uL Eosinophils # (0-0.7) k/uL Basophils # (0-0.2) k/uL Hypochromasia Anisocytosis PT 11.0 (9.0-12.0) sec INR 1.1 (<1.2) APTT 22.4 (22.0-30.0) sec Sodium (137-145) mmol/L Potassium (3.5-5.1) mmol/L Chloride (98-107) mmol/L Carbon Dioxide (22-30) mmol/L Anion Gap mmol/L BUN (9-20) mg/dL Creatinine (0.66-1.25) mg/dL Est GFR (CKD-EPI)AfAm (>60 ml/min/1.73 sqM) Est GFR (CKD-EPI)NonAf (>60 ml/min/1.73 sqM) Glucose (74-99) mg/dL Plasma Lactic Acid Ken 0.9 (0.7-2.0) mmol/L Calcium (8.4-10.2) mg/dL Total Bilirubin (0.2-1.3) mg/dL AST (17-59) U/L ALT (21-72) U/L Alkaline Phosphatase (38-126) U/L Total Creatine Kinase (55-170) U/L CK-MB (CK-2) (0.0-2.4) ng/mL CK-MB (CK-2) Rel Index Troponin I (0.000-0.034) ng/mL Total Protein (6.3-8.2) g/dL Albumin (3.5-5.0) g/dL Disposition Clinical Impression: Fever, Pleural effusion Disposition: ADMITTED IP TO THIS HOSP
[2018-03-03] MEDS ORDERED: methylPREDNISolone SOD SUCCI 125 MG/2 ML VIAL IV STA (20:08)
[2018-03-03] MEDS ORDERED: FAMOTIDINE 20 MG/2 ML VIAL IV STA (20:08)
[2018-03-03] MEDS ORDERED: diphenhydrAMINE 50 MG/ML 1 ML VIAL IVP STA (20:08)
[2018-03-03] MEDS ORDERED: MORPHINE SULFATE 4 MG/ML SYRINGE IVP STA (20:10)
[2018-03-03] MEDS ORDERED: CEFEPIME 1 GM in SODIUM CHLORIDE 0.9% 50 ML IVPB STA (20:12)
[2018-03-03] MEDS ORDERED: NALOXONE 0.4 MG/ML 1 ML VIAL IV PRN (20:48)
[2018-03-03] MEDS ORDERED: ACETAMINOPHEN TAB 325 MG TAB PO PRN (20:48)
[2018-03-03] MEDS ORDERED: IBUPROFEN 400 MG TAB PO PRN (20:48)
[2018-03-03] MEDS: SODIUM CHLORIDE 0.9% 1,000 ML IV SCH (22:04)
--- NOTE | 2018-03-03 22:26 | CT ---
EXAMINATION TYPE: CT chest angio for PE DATE OF EXAM: 03/03/2018 COMPARISON: None HISTORY: Shortness of breath. CT DLP: 431.3 mGycm Automated exposure control for dose reduction was used. CONTRAST: CT Chest for pulmonary embolism performed with with IV Contrast, patient injected with 100 mL of Isov ue 370. FINDINGS: There are bilateral pleural effusions and larger on the left side. There is massive ascites. There ar e calcified gallstones. There is normal contrast opacification of the pulmonary arteries. I see no fi lling defect. Thoracic aorta is intact without evidence of aneurysm or dissection. There is no medias tinal adenopathy. There are bronchial lymph nodes bilaterally that measure up to 1 cm. There are infi ltrates and atelectasis at the posterior lung bases. There is spurring in the thoracic spine. IMPRESSION: No evidence of pulmonary embolism. Pleural effusions with basilar pulmonary infiltrates and atelectasis. Moderately severe ascites. Calc ified gallstones.
[2018-03-03 22:51] LABS: Glucose,Whole Blood 127 mg/dL (75-99)
[2018-03-03] MEDS: INSULIN ASPART 100 UNIT/ML 1 ML 10 ML VIAL SQ SCH (23:02)
[2018-03-03] MEDS: ATENOLOL 50 MG TAB PO SCH (23:03)
[2018-03-04 03:54] VITALS: BMI 24.9
[2018-03-04 07:15] LABS: Glucose,Whole Blood 217 mg/dL (75-99)
[2018-03-04] MEDS: INSULIN ASPART 100 UNIT/ML 1 ML 10 ML VIAL SQ SCH ×4 (07:40→21:12)
[2018-03-04] MEDS: MORPHINE SULFATE 4 MG/ML SYRINGE IV PRN ×3 (07:42→21:13)
[2018-03-04] MEDS: ATENOLOL 50 MG TAB PO SCH ×2 (07:46→21:06)
[2018-03-04] MEDS: FOLIC ACID 1 MG TAB PO SCH (07:46)
[2018-03-04] MEDS: CYANOCOBALAMIN-FA-PYRIDOXINE 1 EACH TAB PO SCH (07:46)
[2018-03-04] MEDS: ISOSORBIDE MONONITRATE ER 60 MG TAB.ER.24H PO SCH (07:55)
[2018-03-04] MEDS ORDERED: amLODIPine 5 MG TAB PO SCH (09:00)
[2018-03-04] MEDS ORDERED: CEFEPIME 1 GM in SODIUM CHLORIDE 0.9% 50 ML IVPB SCH (09:00)
[2018-03-04 09:01] LABS: Anisocytosis Slight; Basophils % (A) 0 %; Eosinophils % (A) 0 %; HCT 32.2 % (39.0-53.0); HGB 10.1 gm/dL (13.0-17.5); Hypochromasia Moderate; Lymphocytes # (A) 0.2 k/uL (1.0-4.8); Lymphocytes % (A) 6 %; MCH 27.5 pg (25.0-35.0); MCHC 31.2 g/dL (31.0-37.0); Mean Platelet Volume 7.2; Monocytes % (A) 1 %; Neutrophils # (A) 3.1 k/uL (1.3-7.7); Neutrophils % (A) 92 %; Platelet Count 208 k/uL (150-450); RBC 3.66 m/uL (4.30-5.90); RDW 16.3 % (11.5-15.5); WBC 3.4 k/uL (3.8-10.6)
[2018-03-04 09:14] LABS: Reticulocyte % 0.6 % (0.5-2.0)
[2018-03-04 09:24] LABS: ALT 20 U/L (21-72); AST 25 U/L (17-59); Alkaline Phosphatase 68 U/L (38-126); Anion Gap 8 mmol/L; Blood Urea Nitrogen 24 mg/dL (9-20); Calcium 8.2 mg/dL (8.4-10.2); Carbon Dioxide 27 mmol/L (22-30); Chloride 105 mmol/L (98-107); Cholesterol 179 mg/dL (<200); Glucose 181 mg/dL (74-99); HDL Cholesterol 42 mg/dL (40-60); LDL Cholesterol,Calculated 122 mg/dL (0-99); Lipase 152 U/L (23-300); Magnesium 2.2 mg/dL (1.6-2.3); Sodium 140 mmol/L (137-145); Total Bilirubin 0.6 mg/dL (0.2-1.3); Total Protein 5.9 g/dL (6.3-8.2); Triglycerides 75 mg/dL (<150)
[2018-03-04] MEDS: ENOXAPARIN 40 MG/0.4 ML SYRINGE SQ SCH (11:36)
[2018-03-04] MEDS: ASPIRIN 325 MG TAB PO SCH (11:36)
[2018-03-04] MEDS ORDERED: VANCOMYCIN IV PER PHARMACY 1 EACH MISC MISCELLANE PRN (11:41)
[2018-03-04 11:53] LABS: Glucose,Whole Blood 220 mg/dL (75-99)
--- NOTE | 2018-03-04 12:09 | HP ---
HISTORY AND PHYSICAL The patient is a patient of Dr. Camacho, admitted through the emergency room. DATE OF SERVICE: 03/04/2018. His age is 67 years old, white male and single. His date of 1950 and he is in room #559, bed 1 is. NEW DATA: He is FULL CODE. Height 5 foot, 8 inches. Weight 74.389 kg. BSA 1.88 m2, BMI 24.9 kg/m2. His allergy IODINE and IV DYE CONTAINING PRODUCT, MOLD and PENICILLIN. The PENICILLIN since childhood, unknown reaction. CHIEF COMPLAINT: Patient came to the emergency room after he had significant discomfort in the right thigh with sharp shooting pain with the history of chemotherapy was finished on last Sunday. Presented with febrile 102.4 with shaking chills. HISTORY OF PRESENT ILLNESS: Mr. Mayco Lobo who is a 67-year-old, white male single, did have finished his chemotherapy on last Sunday with the pump and removed the pump at that time and patient has a history of gastric carcinoma with and possible stage IV. 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 He used Motrin, ibuprofen 800 mg and it did help it little bit and the next day on Sunday, he has to go back for this ceremony, but he could not and he told them at the [facility] and he was not able to do. 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 He had previous history of 4 vessel bypass graft and 2 exam has been closed and he was seen by Cardiology, Dr. Berenice Gray and his previous history he had some discomfort in the abdomen and the pain, subsequently he had a colonoscopy and EGD and biopsy found cell cancer and subsequently referred to [facility], where he was seen by Dr. Casanova and started subsequently on chemotherapy. Patient also has ascites and he has drained twice, the last time was drained on February 07 and lost the paracentesis and he had before that in [place], and each time was 5 L. HISTORY OF PRESENT ILLNESS: He has shaking chills as well associated after he had the Sunday, the pump for chemo was removed. Patient also experienced hot and cold and he felt cold and he had a blanket for the shaking that he had and then subsequently he felt hot with a temperature at that time 102.4. FAMILY HISTORY: He is single. He has 2 sisters and 1 older brother. His dad of lung cancer at age of 92. His mom with liver cirrhosis, was not alcoholic, was not drinking alcohol. His allergy as mentioned above. He has also history of diabetes mellitus type 2 on metformin and for the last 10 years, approximately. On the patient review of system neuropsychiatry was negative and cardiovascular he had history of coronary artery bypass graft, but he is not in any chest pain or pressure pain. On the respiratory, no cough or expectoration, but they told him that the fluid pushing on his diaphragm and make him as well short of breath. On the GI, he had problem with the gastric cancer and with the decreased meals and appetite. On the , no dysuria or hematuria and no hematemesis or melena or hematochezia, but he has anemia. The extremities, he has no musculoskeletal generalized weakness with the association with the chemotherapy. PHYSICAL EXAMINATION: His temperature at the time of admission was 102.4 and currently on the exam, temperature 97.7, and respiratory rate was 16 and pulse rate 67. His blood pressure 112/64, and mean arterial pressure is 80. His oxygenation was essentially 95% on 2 L with the 93% on room air. On the examination, patient is conscious, alert, oriented, able to give history in detail. His HEENT, the head was normocephalic, atraumatic. Pupil was equal, reactive. Conjunctivae was pale. The extraocular movement was intact. Oropharynx, natural teeth. Neck was supple. No JVD. No thyromegaly. No lymphadenopathy. Trachea midline. The axillary, no lymph nodes. No supraclavicular lymph nodes. His chest has a scar midline from previous coronary artery bypass graft and mild increased anteroposterior diameter. The lung was irrigated; however, decreased air entry on the bases and the heart, PMI in the fifth intercostal space outside midclavicular line with normal S1, S2. No gallop and no murmur could not be appreciated at this time. The abdomen is distended and distended with the positive for arthritis and tenderness in the suprapubic area as well as in the four quadrants with the feeling of some distention. But no localized mass could be detected. However, may be intra-abdominal. EXTREMITIES: No edema and positive pulses and pulses are intact bilateral. LABORATORY: Indicating yesterday his white count 5.20 with the hemoglobin 9.2 and hematocrit is 28.8, and his PT and INR was normal and PTT was normal. His sodium 137, and creatinine was 0.78 with the estimated glomerular filtration rate more than 90. His blood sugar was 184. The calcium was low 7.8, and he will be 20 a little bit below the normal. However, bilirubin was normal. Troponin level was normal as well, less than 0.012. Total protein 5.4, and albumin 2.7 with the underlying mild decrease. His lactic acid was 0.9 today. We did repeat again on the laboratory and his white count started to drop and we expecting post chemo nidus and his white count 3.4 and hemoglobin is improving at 10.1 and his potassium is 5, an and sodium 140 today, as well as his renal function is stable and blood sugar has been stable with coverage with insulin only. His total protein is 5.9 with albumin 3 and the LDL is 122, slightly elevated, but the patient is not eating and his lipase was normal 152. On the current dose, the EKG was done and he has normal sinus rhythm and rate of 99 beats per minute and no acute abnormalities has been detected. He has also and the he has also on CT scan of the chest because of the shortness of breath and a probable PE and there is no evidence of the CT scan angiogram of no evidence of pulmonary PE. However, he has massive ascites and he has also bilateral pleural effusion and thoracic aorta is intact. No evidence of aneurysm. He had a infiltrate and atelectasis in the posterior of the lung bases and also he has effusion probably more in the left than the right. He has also a chest x-ray was done on admission and that showed pulmonary interstitial fibrosis with a slight improvement in aeration of the lung from the last exam. ASSESSMENT: 1. Pain in the right thigh, possible associated with metastasis versus hairline fracture. Will obtain x-ray of the right thigh. 2. Underlying chemotherapy with the expected drop in the white count with the nidus. 3. Febrile illness for female and need protection with the immunocompromised and need the antibiotic and isolation. 4. Consultation with the Oncology, Dr. Casanova as well and precaution. The consulting as well, Dr. Juventino Cervantes started him on the Cefepime 1 q.12 hours as well as vancomycin, pharmacy to dose until seen by Dr. Cervantes and evaluated and rule out sepsis. MMODL / IJN: [id number] /
[2018-03-04 12:57] LABS: Hemoglobin A1C 5.6 % (4.0-6.0)
[2018-03-04] MEDS ORDERED: VANCOMYCIN 1,500 MG in SODIUM CHLORIDE 0.9% 250 ML IVPB ONE (13:00)
--- NOTE | 2018-03-04 13:46 | XR ---
EXAMINATION TYPE: XR femur RT DATE OF EXAM: 03/04/2018 COMPARISON: NONE HISTORY: Pain TECHNIQUE: 4 views submitted FINDINGS: Surgical clips and vascular calcifications are seen in the soft tissues. Arthropathy of the knee joint. No acute fracture or dislocation. Sclerosis involving the right inferior pubic ramus lik arina a benign etiology. Appears to be contrast within the bladder and there is arthropathy of the hip joint. No definite destructive changes. IMPRESSION: 1. Hip and knee arthropathy with no definite destructive changes. If there is concern for metastasis consider bone scan.
[2018-03-04] MEDS: CEFEPIME 2 GM in SODIUM CHLORIDE 0.9% 50 ML IVPB SCH ×2 (15:15→23:40)
[2018-03-04] MEDS: ATORVASTATIN 40 MG TAB PO SCH (17:14)
[2018-03-04] MEDS: ISOSORBIDE MONONITRATE ER 30 MG TAB.ER.24H PO SCH (17:14)
[2018-03-04] MEDS: LISINOPRIL 10 MG TAB PO SCH (17:14)
[2018-03-04 17:31] LABS: Glucose,Whole Blood 223 mg/dL (75-99)
[2018-03-04 17:35] LABS: Iron Saturation 12.25 (15.00-50.00)
--- NOTE | 2018-03-04 18:02 | P.CONS ---
History of Present Illness - Reason for Consult Consult date: 03/04/18 gastric adenocarcinoma Requesting physician: Lupis Xiong - Chief Complaint fever s/p chemo, right femur pain - History of Present Illness Mr. Lobo is a very pleasant male pt of Dr. Casanova who presented to his PCP Dr. Camacho in November with c/o stomach distention for 3-4 months without abdominal pain, progressive anorexia and weight loss of 20-25lbs, U/S of abdomen and then CT on 12/14/17, showed large amount of ascites as well as omental caking and peritoneal nodules, paracentesis on 12/20/2017 had negative cytology. Colonoscopy/EGD with Dr. Quinonez on 01/11/18 reveled a thickened gastric wall identified in body and antrum of stomach, biopsy "at least intramucosal adenocarcinoma". Staging PET on 02/02 showed diffuse peritoneal carcinomatosis, palliative paracentesis 02/08 with positive cytology consistent with gastric origin, Her2 was negative, MSI, I am not sure of at this time. Pt had his 1st palliative [id number] treatment on 02/27. He was having severe pain in the right femur, sharp, can't walk on it, thigh is numb to touch, no pay when laying down, he can flex the hip, knee and tolerates active ROS against resistance without pain, denies loss of bowel or bladder control, general malaise and finally a fever which is why pt was directed to the hospital. Pancultures pending, empiric antibiotics ordered, xray of the right hip/femur ordered. Pt did not have a fever this AM, no oral irritation, odynophagia, appetite is poor, has early satiety, no FUENTES, chest pain, abd is distended, denies changes in bowel or bladder, no swelling, rash or pain other then the right leg. Review of Systems 14 point ROS as stated in HPI Past Medical History Past Medical History: Coronary Artery Disease (CAD), Cancer, Chest Pain / Angina , Diabetes Mellitus, Hyperlipidemia, Hypertension, Myocardial Infarction ([place]), Vascular Disorder Additional Past Medical History / Comment(s): Stomach cancer. Last Myocardial Infarction Date:: 1992 History of Any Multi-Drug Resistant Organisms: None Reported Past Surgical History: Coronary Bypass/CABG, Heart Catheterization Additional Past Surgical History / Comment(s): CABG 1992, per pt 5 quarts drained from abdomen 12/20/17, drained again 02/07/18, EGD, colonoscopy, lymph node removed from left side of neck. Past Anesthesia/Blood Transfusion Reactions: No Reported Reaction Past Psychological History: No Psychological Hx Reported Smoking Status: Former smoker Past Alcohol Use History: Occasional Past Drug Use History: None Reported - Past Family History Father Family Medical History: Cancer Additional Family Medical History / Comment(s): Lung cancer Medications and Allergies Home Medications Medication Instructions Recorded Confirmed Type Aspirin 325 mg PO DAILY 04/15/15 03/04/18 History Atenolol [Tenormin] 50 mg PO BID 04/15/15 03/04/18 History Atorvastatin Calcium [Lipitor] 40 mg PO W/SUPPER 04/15/15 03/04/18 History Enalapril Maleate [Vasotec] 5 mg PO W/SUPPER 04/15/15 03/04/18 History Folic Acid 400 mcg PO DAILY 04/15/15 03/04/18 History Vitamin B Complex 1 cap PO DAILY 04/15/15 03/04/18 History amLODIPine [Norvasc] 5 mg PO QAM 12/18/17 03/04/18 History Isosorbide Mononitrate ER [Imdur] 30 mg PO BID 12/20/17 03/04/18 History Ascorbic Acid [Vitamin C] 500 mg PO DAILY 03/04/18 03/04/18 History metFORMIN HCL ER [Glucophage Xr] 500 mg PO PC-SUPPER 03/04/18 03/04/18 History Allergies Allergy/AdvReac Type Severity Reaction Status Date / Time Iodine and Iodide Containing Allergy Rash/Hives Verified 03/04/18 08:18 Produc mold Allergy per Verified 03/04/18 08:18 allergy testing Penicillins Allergy Unknown Verified 03/04/18 08:18 Childhood Physical Exam Vitals: Vital Signs Temp Pulse Pulse Resp BP BP Pulse Ox 03/04/18 17:15 72 18 118/68 97 03/04/18 15:49 72 18 03/04/18 15:05 97.4 F L 72 18 124/70 90 L 03/04/18 05:00 97.7 F 67 16 112/64 93 L 03/03/18 22:53 97.5 F L 73 16 111/54 92 L 03/03/18 21:30 99.0 F 77 16 122/63 95 03/03/18 20:37 81 16 119/69 97 03/03/18 19:45 87 20 131/70 97 03/03/18 18:53 102.4 F H 03/03/18 18:10 99.9 F H 102 H 20 118/60 94 L Intake and Output 03/04/18 03/04/18 03/04/18 06:59 14:59 22:59 Intake Total 1270 Balance 1270 Intake: Intake, IV Titration 690 Amount Cefepime 1 gm In Sodium 100 Chloride 0.9% 50 ml @ 100 mls/hr IVPB Q12HR [facility] Rx #:[id number] Cefepime 2 gm In Sodium 100 Chloride 0.9% 50 ml @ 100 mls/hr IVPB Q8HR [facility] Rx# :[id number] Sodium Chloride 0.9% 1, 240 000 ml @ 20 mls/hr IV . Q24H [facility] Rx#:[id number] Vancomycin 1,250 mg In 250 Sodium Chloride 0.9% 250 ml @ 125 mls/hr IVPB Q8H [facility] Rx#:[id number] Oral 580 Other: Voiding Method Toilet Toilet # Voids 3 1 # Bowel Movements 1 1 Weight 74.389 kg 74.389 kg - Constitutional General appearance: average body habitus, cooperative, no acute distress - EENT Eyes: anicteric sclerae, EOMI, normal appearance ENT: hearing grossly normal, normal oropharynx - Neck Neck: no lymphadenopathy - Respiratory Respiratory: bilateral: rales (bases) - Cardiovascular Heart sounds: normal: S1, S2 Abnormal Heart Sounds: no systolic murmur, no diastolic murmur, no rub, no S3 Gallop, no S4 Gallop, no click, no other leg Peripheral Edema: bilateral: Trace - Gastrointestinal General gastrointestinal: no absent bowel sounds, no decreased bowel sounds, distended, no hepatomegaly, no hyperactive bowel sounds, normal bowel sounds, no organomegaly, no rigid, no scaphoid, soft, no splenomegaly, no tenderness, no umbilical hernia, no ventral hernia - Integumentary Integumentary: pale - Neurologic Neurologic: CNII-XII intact - Musculoskeletal Musculoskeletal: strength equal bilaterally - Psychiatric Psychiatric: A&O x's 3, appropriate affect, intact judgment & insight Results CBC & Chem 7: 03/04/18 08:19 09/17/18 08:19 Labs: Abnormal Lab Results - Last 24 Hours (Table) 03/03/18 03/03/18 03/03/18 Range/Units 18:45 18:45 18:45 WBC (3.8-10.6) k/uL RBC 3.30 L (4.30-5.90) m/uL Hgb 9.2 L (13.0-17.5) gm/dL Hct 28.8 L (39.0-53.0) % RDW 16.5 H (11.5-15.5) % Lymphocytes # 0.1 L (1.0-4.8) k/uL BUN 24 H (9-20) mg/dL Creatinine (0.66-1.25) mg/dL Glucose 184 H (74-99) mg/dL POC Glucose (mg/dL) (75-99) mg/dL Calcium 7.8 L (8.4-10.2) mg/dL Iron (65-175) ug/dL Iron Saturation (15.00-50.00) ALT 20 L (21-72) U/L Total Creatine Kinase 47 L (55-170) U/L Total Protein 5.4 L (6.3-8.2) g/dL Albumin 2.7 L (3.5-5.0) g/dL LDL Cholesterol, Calc (0-99) mg/dL 03/03/18 03/04/18 03/04/18 Range/Units 22:44 07:14 08:19 WBC 3.4 L (3.8-10.6) k/uL RBC 3.66 L (4.30-5.90) m/uL Hgb 10.1 L (13.0-17.5) gm/dL Hct 32.2 L (39.0-53.0) % RDW 16.3 H (11.5-15.5) % Lymphocytes # 0.2 L (1.0-4.8) k/uL BUN (9-20) mg/dL Creatinine (0.66-1.25) mg/dL Glucose (74-99) mg/dL POC Glucose (mg/dL) 127 H 217 H (75-99) mg/dL Calcium (8.4-10.2) mg/dL Iron (65-175) ug/dL Iron Saturation (15.00-50.00) ALT (21-72) U/L Total Creatine Kinase (55-170) U/L Total Protein (6.3-8.2) g/dL Albumin (3.5-5.0) g/dL LDL Cholesterol, Calc (0-99) mg/dL 03/04/18 03/04/18 03/04/18 Range/Units 08:19 08:19 11:52 WBC (3.8-10.6) k/uL RBC (4.30-5.90) m/uL Hgb (13.0-17.5) gm/dL Hct (39.0-53.0) % RDW (11.5-15.5) % Lymphocytes # (1.0-4.8) k/uL BUN 24 H (9-20) mg/dL Creatinine 0.65 L (0.66-1.25) mg/dL Glucose 181 H (74-99) mg/dL POC Glucose (mg/dL) 220 H (75-99) mg/dL Calcium 8.2 L (8.4-10.2) mg/dL Iron 31 L (65-175) ug/dL Iron Saturation 12.25 L (15.00-50.00) ALT 20 L (21-72) U/L Total Creatine Kinase (55-170) U/L Total Protein 5.9 L (6.3-8.2) g/dL Albumin 3.0 L (3.5-5.0) g/dL LDL Cholesterol, Calc 122 H (0-99) mg/dL 03/04/18 Range/Units 17:30 WBC (3.8-10.6) k/uL RBC (4.30-5.90) m/uL Hgb (13.0-17.5) gm/dL Hct (39.0-53.0) % RDW (11.5-15.5) % Lymphocytes # (1.0-4.8) k/uL BUN (9-20) mg/dL Creatinine (0.66-1.25) mg/dL Glucose (74-99) mg/dL POC Glucose (mg/dL) 223 H (75-99) mg/dL Calcium (8.4-10.2) mg/dL Iron (65-175) ug/dL Iron Saturation (15.00-50.00) ALT (21-72) U/L Total Creatine Kinase (55-170) U/L Total Protein (6.3-8.2) g/dL Albumin (3.5-5.0) g/dL LDL Cholesterol, Calc (0-99) mg/dL Microbiology - Last 24 Hours (Table) 03/03/18 18:45 Blood Culture Gram Stain - Preliminary Blood 03/03/18 18:45 Blood Culture - Final Blood Chest x-ray: report reviewed CT scan - chest: report reviewed Assessment and Plan (1) Fever Narrative/Plan: Pancultures pending, empiric abx, vancomycin added. Current Visit: Yes Status: Acute Priority: High Code(s): R50.9 - FEVER, UNSPECIFIED SNOMED Code(s): 489649065 (2) Malignant ascites Narrative/Plan: Possible palliative US and paracentesis while inpatient. Wait for improvement in counts and fever pattern Current Visit: Yes Status: Acute Priority: High Code(s): R18.0 - MALIGNANT ASCITES SNOMED Code(s): 654777674 (3) Gastric cancer Narrative/Plan: Pt is s/p 1st cycle of palliative [id number]. Pt has not suffered severe hematologic toxicites from chemo at this time. Will cont to monitor counts while inpatient. No interventions needed today Xray of painful right femur/hip. Concern is for metastatic disease. Pending results, further recommendations to follow Palliative paracentesis PRN. Current Visit: Yes Status: Acute Priority: High Code(s): C16.9 - MALIGNANT NEOPLASM OF STOMACH, UNSPECIFIED SNOMED Code(s): 819068809 Plan: Doctor attests:I have performed a history and physical exam of this pt, discussed with dictator. I agree with dictated note, documented as a scribe.
[2018-03-04 19:50] LABS: Appearance,Urine Cloudy (Clear); Bilirubin,Urine Negative (Negative); Blood,Urine Large (Negative); Color,Urine Yellow; Glucose,Urine (UA) Negative (Negative); Ketones,Urine Negative (Negative); Leukocyte Esterase,Urine Negative (Negative); Mucus,Urine Occasional /hpf; Nitrite,Urine Negative (Negative); Protein,Urine 1+ (Negative); RBC,Urine >182 /hpf (0-5); Specific Gravity,Urine 1.037 (1.001-1.035); Urobilinogen,Urine <2.0 mg/dL (<2.0); WBC,Urine 3 /hpf (0-5)
[2018-03-04] MEDS: VANCOMYCIN 1,250 MG in SODIUM CHLORIDE 0.9% 250 ML IVPB SCH (21:04)
[2018-03-04] MEDS: SODIUM CHLORIDE 0.9% 1,000 ML IV SCH (21:04)
[2018-03-04 21:10] LABS: Glucose,Whole Blood 139 mg/dL (75-99)
--- NOTE | 2018-03-04 21:58 | P.CONS ---
History of Present Illness - Reason for Consult Consult date: 03/04/18 - Chief Complaint Fever - History of Present Illness 67-year-old male who was having difficulty with some abdominal discomfort and distention over several months with weight loss. Workup revealed evidence of ascites and what appeared to be omental caking and peritoneal lymphadenopathy. 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 The patient developed fever and significant increased amount of pain to his right leg at the femur which is of some concern because of a prior right total hip arthroplasty. The patient was pain became so severe he was no longer able to bear weight and was brought to hospital. Fevers have improved denies significant chills or rigors but had significant chills at home. With the positive blood culture for gram-positive cocci the infectious diseases consultation was requested. Review of Systems 67-year-old male with complaints of severe pain to his right hip and leg and difficulty walking HEENT:Denies headache or acute visual change. Denies sinus or mouth discomforts. Denies neck stiffness or pain. Denies significant oral cavity pain. Denies difficulty on swallowing. Lungs: Denies significant shortness of breath, cough, sputum production, or hemoptysis. Cardiovascular: Denies significant shortness of breath, chest pain, chest wall pain, orthopnea, dyspnea on exertion, syncope Gastrointestinal: Very poor appetite but denies nausea or emesis or hematemesis. Has severe constipation with current pain medications. Musculoskeletal: As per the HPI Skin: Denies new rash or lesions. No new ulcers or wounds are related.. Neuro: Denies headache or visual change. Denies any new onset weakness or difficulty with ambulation. Denies falls or seizures. Psychiatric:Denies anxiety or depression. Endocrine: Fatigue and weight loss Past Medical History Past Medical History: Coronary Artery Disease (CAD), Cancer, Chest Pain / Angina , Diabetes Mellitus, Hyperlipidemia, Hypertension, Myocardial Infarction (CO), Vascular Disorder Additional Past Medical History / Comment(s): Stomach cancer. Last Myocardial Infarction Date:: 1992 History of Any Multi-Drug Resistant Organisms: None Reported Past Surgical History: Coronary Bypass/CABG, Heart Catheterization Additional Past Surgical History / Comment(s): CABG 1992, per pt 5 quarts drained from abdomen 12/20/17, drained again 02/07/18, EGD, colonoscopy, lymph node removed from left side of neck. Past Anesthesia/Blood Transfusion Reactions: No Reported Reaction Past Psychological History: No Psychological Hx Reported Additional Psychological History / Comment(s): Single never . No children. 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 No experience. No international travel. No current tobacco use. No current alcohol use. Has a cat at home that his sister is taking care of Smoking Status: Former smoker Past Alcohol Use History: Occasional Past Drug Use History: None Reported - Past Family History Father Family Medical History: Cancer Additional Family Medical History / Comment(s): Lung cancer Medications and Allergies Home Medications and Allergies Comment(s): Current Medications Acetaminophen (Tylenol Tab) 650 mg PO Q6HR PRN PRN Reason: Mild Pain or Fever > 100.5 Aspirin (Aspirin) 325 mg PO DAILY [facility] Last Admin: 03/04/18 11:36 Dose: Not Given Atenolol (Tenormin) 50 mg PO BID [facility] Last Admin: 03/04/18 21:06 Dose: 50 mg Atorvastatin Calcium (Lipitor) 40 mg PO W/SUPPER [facility] Last Admin: 03/04/18 17:14 Dose: 40 mg Enoxaparin Sodium (Lovenox) 40 mg SQ DAILY [facility] Last Admin: 03/04/18 11:36 Dose: Not Given Folic Acid (Folic Acid) 0.5 mg PO DAILY [facility] Last Admin: 03/04/18 07:46 Dose: 0.5 mg Folic Acid (Folbic) 1 each PO DAILY [facility] Last Admin: 03/04/18 07:46 Dose: 1 each Sodium Chloride (Saline 0.9%) 1,000 mls @ 20 mls/hr IV .Q24H [facility] Last Admin: 03/04/18 21:04 Dose: 20 mls/hr Cefepime HCl 2 gm/ Sodium (Chloride) 50 mls @ 100 mls/hr IVPB Q8HR [facility] Last Admin: 03/04/18 15:15 Dose: 100 mls/hr Vancomycin HCl 1,250 mg/ (Sodium Chloride) 250 mls @ 125 mls/hr IVPB Q8H [facility] Last Admin: 03/04/18 21:04 Dose: 125 mls/hr Ibuprofen (Motrin) 400 mg PO Q6HR PRN PRN Reason: Mild Pain or Fever > 100.5 Insulin Aspart (Novolog) 0 unit SQ [facility]; Protocol Last Admin: 03/04/18 21:12 Dose: 1 unit Isosorbide Mononitrate (Imdur) 30 mg PO AC-SUPPER [facility] Last Admin: 03/04/18 17:14 Dose: Not Given Isosorbide Mononitrate (Imdur) 60 mg PO QAM [facility] Last Admin: 03/04/18 07:55 Dose: Not Given Lisinopril (Zestril) 10 mg PO W/SUPPER [facility] Last Admin: 03/04/18 17:14 Dose: 10 mg Morphine Sulfate (Morphine Sulfate (Inj)) 4 mg IV Q4HR PRN PRN Reason: Severe Pain Last Admin: 03/04/18 21:13 Dose: 4 mg Naloxone HCl (Narcan) 0.2 mg IV Q2M PRN PRN Reason: Opioid Reversal Home Medications Medication Instructions Recorded Confirmed Type Aspirin 325 mg PO DAILY 04/15/15 03/04/18 History Atenolol [Tenormin] 50 mg PO BID 04/15/15 03/04/18 History Atorvastatin Calcium [Lipitor] 40 mg PO W/SUPPER 04/15/15 03/04/18 History Enalapril Maleate [Vasotec] 5 mg PO W/SUPPER 04/15/15 03/04/18 History Folic Acid 400 mcg PO DAILY 04/15/15 03/04/18 History Vitamin B Complex 1 cap PO DAILY 04/15/15 03/04/18 History amLODIPine [Norvasc] 5 mg PO QAM 12/18/17 03/04/18 History Isosorbide Mononitrate ER [Imdur] 30 mg PO BID 12/20/17 03/04/18 History Ascorbic Acid [Vitamin C] 500 mg PO DAILY 03/04/18 03/04/18 History metFORMIN HCL ER [Glucophage Xr] 500 mg PO PC-SUPPER 03/04/18 03/04/18 History Allergies Allergy/AdvReac Type Severity Reaction Status Date / Time Iodine and Iodide Containing Allergy Rash/Hives Verified 03/04/18 08:18 Produc mold Allergy per Verified 03/04/18 08:18 allergy testing Penicillins Allergy Unknown Verified 03/04/18 08:18 Childhood Physical Exam Vitals: Vital Signs Temp Pulse Resp BP Pulse Ox 03/04/18 17:15 72 18 118/68 97 03/04/18 15:49 72 18 03/04/18 15:05 97.4 F L 72 18 124/70 90 L 03/04/18 05:00 97.7 F 67 16 112/64 93 L 03/03/18 22:53 97.5 F L 73 16 111/54 92 L Intake and Output 03/04/18 03/04/18 03/04/18 06:59 14:59 22:59 Intake Total 1270 Balance 1270 Intake: Intake, IV Titration 690 Amount Cefepime 1 gm In Sodium 100 Chloride 0.9% 50 ml @ 100 mls/hr IVPB Q12HR [facility] Rx #:[id number] Cefepime 2 gm In Sodium 100 Chloride 0.9% 50 ml @ 100 mls/hr IVPB Q8HR [facility] Rx# :[id number] Sodium Chloride 0.9% 1, 240 000 ml @ 20 mls/hr IV . Q24H [facility] Rx#:[id number] Vancomycin 1,250 mg In 250 Sodium Chloride 0.9% 250 ml @ 125 mls/hr IVPB Q8H [facility] Rx#:[id number] Oral 580 Other: Voiding Method Toilet Toilet # Voids 3 1 # Bowel Movements 1 1 Weight 74.389 kg 74.389 kg Pleasant 67-year-old male who has had recent weight loss and appears chronically ill HEENT: Anicteric conjunctiva are pink and moist nasal mucosa grossly intact without significant lesions, there is no thrush. Dentition is poor Neck: The neck is supple without significant lymphadenopathy or thyromegaly. Lungs: Good bilateral air entry evidence of bibasilar crackles and minimal dullness at the bases. No severe wheezing. No significant egophony Heart: Regular rate and rhythm with an audible S1-S2, no S3 positive S4. There is no significant murmur click or rub, PMI was nondisplaced. Abdomen: Evidence of some mild ascites, there is some diffuse abdominal discomfort but no significant point tenderness. The abdomen is not rigid. No hepatosplenomegaly could be palpated. Extremities: The upper extremities have excellent pulses they are symmetric, no significant petechiae or telangiectasia. No splinter hemorrhages were noted. Lower extremities are generally cool there is no levi ulcers, slight discoloration the lower extremities is noted with a slight purplish hue, capillary refill however is normal. Neuro: Awake alert oriented to person place and time. There are no acute new gross focal sensory motor deficits. Results CBC & Chem 7: 03/04/18 08:19 03/04/18 08:19 Labs: Abnormal Lab Results - Last 24 Hours (Table) 03/03/18 03/04/18 03/04/18 Range/Units 22:44 07:14 08:19 WBC 3.4 L (3.8-10.6) k/uL RBC 3.66 L (4.30-5.90) m/uL Hgb 10.1 L (13.0-17.5) gm/dL Hct 32.2 L (39.0-53.0) % RDW 16.3 H (11.5-15.5) % Lymphocytes # 0.2 L (1.0-4.8) k/uL BUN (9-20) mg/dL Creatinine (0.66-1.25) mg/dL Glucose (74-99) mg/dL POC Glucose (mg/dL) 127 H 217 H (75-99) mg/dL Calcium (8.4-10.2) mg/dL Iron (65-175) ug/dL Iron Saturation (15.00-50.00) ALT (21-72) U/L Total Protein (6.3-8.2) g/dL Albumin (3.5-5.0) g/dL LDL Cholesterol, Calc (0-99) mg/dL Ur Specific [place] (1.001-1.035) Urine Protein (Negative) Urine Blood (Negative) Urine RBC (0-5) /hpf Urine Mucus (None) /hpf 03/04/18 03/04/18 03/04/18 Range/Units 08:19 08:19 11:52 WBC (3.8-10.6) k/uL RBC (4.30-5.90) m/uL Hgb (13.0-17.5) gm/dL Hct (39.0-53.0) % RDW (11.5-15.5) % Lymphocytes # (1.0-4.8) k/uL BUN 24 H (9-20) mg/dL Creatinine 0.65 L (0.66-1.25) mg/dL Glucose 181 H (74-99) mg/dL POC Glucose (mg/dL) 220 H (75-99) mg/dL Calcium 8.2 L (8.4-10.2) mg/dL Iron 31 L (65-175) ug/dL Iron Saturation 12.25 L (15.00-50.00) ALT 20 L (21-72) U/L Total Protein 5.9 L (6.3-8.2) g/dL Albumin 3.0 L (3.5-5.0) g/dL LDL Cholesterol, Calc 122 H (0-99) mg/dL Ur Specific [place] (1.001-1.035) Urine Protein (Negative) Urine Blood (Negative) Urine RBC (0-5) /hpf Urine Mucus (None) /hpf 03/04/18 03/04/18 03/04/18 Range/Units 17:30 19:20 21:09 WBC (3.8-10.6) k/uL RBC (4.30-5.90) m/uL Hgb (13.0-17.5) gm/dL Hct (39.0-53.0) % RDW (11.5-15.5) % Lymphocytes # (1.0-4.8) k/uL BUN (9-20) mg/dL Creatinine (0.66-1.25) mg/dL Glucose (74-99) mg/dL POC Glucose (mg/dL) 223 H 139 H (75-99) mg/dL Calcium (8.4-10.2) mg/dL Iron (65-175) ug/dL Iron Saturation (15.00-50.00) ALT (21-72) U/L Total Protein (6.3-8.2) g/dL Albumin (3.5-5.0) g/dL LDL Cholesterol, Calc (0-99) mg/dL Ur Specific [place] 1.037 H (1.001-1.035) Urine Protein 1+ H (Negative) Urine Blood Large H (Negative) Urine RBC >182 H (0-5) /hpf Urine Mucus Occasional H (None) /hpf Microbiology - Last 24 Hours (Table) 03/03/18 18:45 Blood Culture Gram Stain - Preliminary Blood 03/03/18 18:45 Blood Culture - Final Blood Laboratory Results WBC 3.4 k/uL (3.8-10.6) L 03/04/18 08:19 RBC 3.66 m/uL (4.30-5.90) L 03/04/18 08:19 Hgb 10.1 gm/dL (13.0-17.5) L 03/04/18 08:19 Hct 32.2 % (39.0-53.0) L 03/04/18 08:19 MCV 88.0 fL (80.0-100.0) 03/04/18 08:19 MCH 27.5 pg (25.0-35.0) 03/04/18 08:19 MCHC 31.2 g/dL (31.0-37.0) 03/04/18 08:19 RDW 16.3 % (11.5-15.5) H 03/04/18 08:19 Plt Count 208 k/uL (150-450) 03/04/18 08:19 Neutrophils % 92 % 03/04/18 08:19 Lymphocytes % 6 % 03/04/18 08:19 Monocytes % 1 % 03/04/18 08:19 Eosinophils % 0 % 03/04/18 08:19 Basophils % 0 % 03/04/18 08:19 Neutrophils # 3.1 k/uL (1.3-7.7) 03/04/18 08:19 Lymphocytes # 0.2 k/uL (1.0-4.8) L 03/04/18 08:19 Monocytes # 0.0 k/uL (0-1.0) 03/04/18 08:19 Eosinophils # 0.0 k/uL (0-0.7) 03/04/18 08:19 Basophils # 0.0 k/uL (0-0.2) 03/04/18 08:19 Hypochromasia Moderate 03/04/18 08:19 Anisocytosis Slight 03/04/18 08:19 Retic Count 0.6 % (0.5-2.0) 03/04/18 08:19 PT 11.0 sec (9.0-12.0) 18 18:45 INR 1.1 (<1.2) 18 18:45 APTT 22.4 sec (22.0-30.0) 03/03/18 18:45 Sodium 140 mmol/L (137-145) 03/04/18 08:19 Potassium 5.0 mmol/L (3.5-5.1) 03/04/18 08:19 Chloride 105 mmol/L (98-107) 03/04/18 08:19 Carbon Dioxide 27 mmol/L (22-30) 03/04/18 08:19 Anion Gap 8 mmol/L 03/04/18 08:19 BUN 24 mg/dL (9-20) H 03/04/18 08:19 Creatinine 0.65 mg/dL (0.66-1.25) L 03/04/18 08:19 Est GFR (CKD-EPI)AfAm >90 (>60 ml/min/1.73 sqM) 03/04/18 08:19 Est GFR (CKD-EPI)NonAf >90 (>60 ml/min/1.73 sqM) 03/04/18 08:19 Glucose 181 mg/dL (74-99) H 03/04/18 08:19 POC Glucose (mg/dL) 139 mg/dL (75-99) H 03/04/18 21:09 POC Glu [employer]ist JAYE Tricia Pak 03/04/18 21:[address] Glu mg/dL 114 03/03/18 18:55 Hemoglobin A1c 5.6 % (4.0-6.0) 03/03/18 18:55 Plasma Lactic Acid Ken 0.9 mmol/L (0.7-2.0) 03/03/18 18:45 Calcium 8.2 mg/dL (8.4-10.2) L 03/04/18 08:19 Magnesium 2.2 mg/dL (1.6-2.3) 03/04/18 08:19 Iron 31 ug/dL (65-175) L 03/04/18 08:19 TIBC 253 ug/dL (228-460) 03/04/18 08:19 Iron Saturation 12.25 (15.00-50.00) L 03/04/18 08:19 Total Bilirubin 0.6 mg/dL (0.2-1.3) 03/04/18 08:19 AST 25 U/L (17-59) 03/04/18 08:19 ALT 20 U/L (21-72) L 03/04/18 08:19 Alkaline Phosphatase 68 U/L (38-126) 09/17/18 08:19 Total Creatine Kinase 47 U/L (55-170) L 03/03/18 18:45 CK-MB (CK-2) 0.3 ng/mL (0.0-2.4) 03/03/18 18:45 CK-MB (CK-2) Rel Index 0.6 03/03/18 18:45 Troponin I <0.012 ng/mL (0.000-0.034) 03/03/18 18:45 Total Protein 5.9 g/dL (6.3-8.2) L 03/04/18 08:19 Albumin 3.0 g/dL (3.5-5.0) L 03/04/18 08:19 Triglycerides 75 mg/dL (<150) 03/04/18 08:19 Cholesterol 179 mg/dL (<200) 03/04/18 08:19 LDL Cholesterol, Calc 122 mg/dL (0-99) H 03/04/18 08:19 HDL Cholesterol 42 mg/dL (40-60) 03/04/18 08:19 Lipase 152 U/L (23-300) 03/04/18 08:19 Urine Color Yellow 03/04/18 19:20 Urine Appearance Cloudy (Clear) 03/04/18 19:20 Urine pH 6.0 (5.0-8.0) 03/04/18 19:20 Ur Specific [place] 1.037 (1.001-1.035) H 03/04/18 19:20 Urine Protein 1+ (Negative) H 03/04/18 19:20 Urine Glucose (UA) Negative (Negative) 03/04/18 19:20 Urine Ketones Negative (Negative) 03/04/18 19:20 Urine Blood Large (Negative) H 03/04/18 19:20 Urine Nitrite Negative (Negative) 03/04/18 19:20 Urine Bilirubin Negative (Negative) 03/04/18 19:20 Urine Urobilinogen <2.0 mg/dL (<2.0) 03/04/18 19:20 Ur Leukocyte Esterase Negative (Negative) 03/04/18 19:20 Urine RBC >182 /hpf (0-5) H 03/04/18 19:20 Urine WBC 3 /hpf (0-5) 03/04/18 19:20 Urine Mucus Occasional /hpf (None) H 03/04/18 19:20 Stool Occult Blood Negative (Negative) 03/03/18 10:05 Influenza Type A RNA Not Detected (Not Detectd) 03/03/18 22:20 Influenza Type B (PCR) Not Detected (Not Detectd) 03/03/18 22:20 Microbiology 03/03/18 18:45 Blood Blood Culture Gram Stain - Preliminary 03/03/18 18:45 Blood Blood Culture - Final Assessment and Plan (1) Gram-positive cocci bacteremia Narrative/Plan: 67-year-old male since hospital with increasing abdominal discomforts significant generalized weakness and severe pain to his right hip area. The presentation there is concerns to metastatic involvement into the right hip area and workup is in process. Patient was very weak at admission and did present with a fever, this is now improved. The patient has evidence of gram-positive cocci in the blood and there is an [id number] in left anterior chest wall. On the exam this is intact without erythema crepitus fluctuance in the nursing noticed no difficulties with the site either. Await final blood culture results. Continue the current antibiotic therapy of cefepime and vancomycin given his relative neutropenia and positive blood culture. Follow blood cultures will be ordered as appropriate. The patient does have potential sites of infection other than his [id number] and will be monitored. The patient complains of significant constipation and MiraLAX and Colace are adequate to relieve his difficulties. Current Visit: Yes Status: Acute Code(s): R78.81 - BACTEREMIA SNOMED Code( s): 173544148882 (2) Gastric cancer Current Visit: Yes Status: Acute Priority: High Code(s): C16.9 - MALIGNANT NEOPLASM OF STOMACH, UNSPECIFIED SNOMED Code(s): 265419454 (3) Peritoneal carcinomatosis Current Visit: Yes Status: Acute Code(s): C78.6 - SECONDARY MALIGNANT NEOPLASM OF RETROPERITON AND PERITONEUM; C80.1 - MALIGNANT (PRIMARY) NEOPLASM, UNSPECIFIED SNOMED Code(s): 155543357
[2018-03-04] MEDS: POLYETHYLENE GLYCOL 3350 17 GM POWD.PACK PO SCH (23:40)
[2018-03-05] MEDS: VANCOMYCIN 1,250 MG in SODIUM CHLORIDE 0.9% 250 ML IVPB SCH ×3 (05:03→21:09)
[2018-03-05 07:09] LABS: Glucose,Whole Blood 135 mg/dL (75-99)
[2018-03-05] MEDS ORDERED: FUROSEMIDE 10 MG/ML 2 ML VIAL IV ONE (07:12)
[2018-03-05 08:37] LABS: Anion Gap 10 mmol/L; Blood Urea Nitrogen 26 mg/dL (9-20); Calcium 8.2 mg/dL (8.4-10.2); Carbon Dioxide 26 mmol/L (22-30); Chloride 104 mmol/L (98-107); Glucose 122 mg/dL (74-99); Potassium 4.5 mmol/L (3.5-5.1); Sodium 140 mmol/L (137-145)
[2018-03-05] MEDS: MORPHINE SULFATE 4 MG/ML SYRINGE IV PRN ×3 (08:37→22:02)
[2018-03-05] MEDS: INSULIN ASPART 100 UNIT/ML 1 ML 10 ML VIAL SQ SCH ×4 (09:10→20:40)
[2018-03-05] MEDS: ENOXAPARIN 40 MG/0.4 ML SYRINGE SQ SCH (09:12)
[2018-03-05] MEDS: ASPIRIN 325 MG TAB PO SCH (09:13)
[2018-03-05] MEDS: ATENOLOL 50 MG TAB PO SCH ×2 (09:14→21:10)
[2018-03-05] MEDS: CYANOCOBALAMIN-FA-PYRIDOXINE 1 EACH TAB PO SCH (09:14)
[2018-03-05] MEDS: CEFEPIME 2 GM in SODIUM CHLORIDE 0.9% 50 ML IVPB SCH ×3 (09:20→23:33)
[2018-03-05] MEDS: FOLIC ACID 1 MG TAB PO SCH (09:47)
[2018-03-05] MEDS: ISOSORBIDE MONONITRATE ER 60 MG TAB.ER.24H PO SCH (10:27)
[2018-03-05 10:28] LABS: Anisocytosis Slight; Basophils % (A) 0 %; Eosinophils % (A) 1 %; HCT 32.4 % (39.0-53.0); HGB 10.1 gm/dL (13.0-17.5); Hypochromasia Moderate; Lymphocytes # (A) 0.4 k/uL (1.0-4.8); Lymphocytes % (A) 8 %; MCH 27.2 pg (25.0-35.0); MCHC 31.1 g/dL (31.0-37.0); MCV 87.4 fL (80.0-100.0); Mean Platelet Volume 8.5; Monocytes # (A) 0.1 k/uL (0-1.0); Monocytes % (A) 1 %; Neutrophils # (A) 4.8 k/uL (1.3-7.7); Neutrophils % (A) 90 %; Platelet Count 199 k/uL (150-450); RBC 3.71 m/uL (4.30-5.90); RDW 16.3 % (11.5-15.5); WBC 5.4 k/uL (3.8-10.6)
[2018-03-05 11:37] LABS: Glucose,Whole Blood 166 mg/dL (75-99)
--- NOTE | 2018-03-05 11:43 | NM ---
EXAMINATION TYPE: NM bone scan whole body DATE OF EXAM: 03/05/2018 COMPARISON: 02/02/2018 HISTORY: History of malignancy Delayed whole-body scanning was performed following the injection of 25.2 mCi Tc 99m MDP. Images acq uired 3 hours post injection. FINDINGS: Abnormal uptake involving the shoulders is nonspecific but likely arthritic. Abnormal uptake involvin g the greater trochanter on the right is nonspecific Abnormal uptake involving the anterior margin the left second rib focally. There is abnormal uptake throughout the thoracic and lumbar spine likely degenerative. IMPRESSION: 1. Focal abnormal uptake anterior margin left second rib is nonspecific. Previous trauma or metastasi s in the differential diagnosis. Recent CT scan has been reviewed dated 03/03/2018 which demonstrates no corresponding osseous abnormality by CT scan. 2. Nonspecific uptake within the sternum correlate with x-ray. 3. Nonspecific uptake involving the greater trochanter of the right femur correlate for symptoms and correlate with x-ray. 4. Faint uptake involving the thoracic spine corresponds to hypertrophic and degenerative changes see n by recent CT scan. No abnormal uptake by PET scan seen within the thoracic and lumbar spine dated .
[2018-03-05] MEDS: DOCUSATE 100 MG CAP PO SCH (13:43)
[2018-03-05 17:09] LABS: Glucose,Whole Blood 143 mg/dL (75-99)
[2018-03-05] MEDS: ISOSORBIDE MONONITRATE ER 30 MG TAB.ER.24H PO SCH (17:21)
[2018-03-05] MEDS: ATORVASTATIN 40 MG TAB PO SCH (17:21)
[2018-03-05] MEDS: LISINOPRIL 10 MG TAB PO SCH (17:21)
--- NOTE | 2018-03-05 18:19 | P.PN ---
Subjective Progress Note Date: 03/05/18 Principal diagnosis: fever, status post chemotherapy for metastatic gastric adenocarcinoma Pt seen today in follow-up, states feeling much better than yesterday, he has not had a fever, no nausea or vomiting, appetite is fair, no difficulty in breathing, abdominal distention is irritating and uncomfortable, he is relating the pain in his leg to the ascites, he denies any difficulty in urinating no concerns for constipation or diarrhea, no bleeding or lower extremity swelling, patient is ambulatory Objective - Vital Signs Vital signs: Vital Signs Temp 98.7 F 03/05/18 12:27 Pulse 78 03/05/18 12:27 Resp 22 03/05/18 12:27 BP 116/60 03/05/18 12:27 Pulse Ox 98 03/05/18 12:27 Intake & Output 03/04/18 03/05/18 03/05/18 18:59 06:59 18:59 Intake Total 1270 1730 480 Output Total 1 Balance 1270 1730 479 Weight 74.389 kg Intake: Intake, IV Titration 690 550 Amount Cefepime 1 gm In Sodium 100 Chloride 0.9% 50 ml @ 100 mls/hr IVPB Q12HR [facility] Rx #:[id number] Cefepime 2 gm In Sodium 100 50 Chloride 0.9% 50 ml @ 100 mls/hr IVPB Q8HR [facility] Rx# :[id number] Sodium Chloride 0.9% 1, 240 000 ml @ 20 mls/hr IV . Q24H [facility] Rx#:[id number] Vancomycin 1,250 mg In 250 500 Sodium Chloride 0.9% 250 ml @ 125 mls/hr IVPB Q8H [facility] Rx#:[id number] Oral 580 1180 480 Output: Urine/Stool Mix 1 Other: Voiding Method Toilet Toilet # Voids 1 1 3 # Bowel Movements 1 - Constitutional General appearance: Present: average body habitus, cooperative, no acute distress - EENT Eyes: Present: EOMI ENT: Present: hearing grossly normal - Respiratory Respiratory: bilateral: CTA - Cardiovascular Heart sounds: normal: S1, S2 - Peripheral edema leg Peripheral Edema: bilateral: None - Gastrointestinal General gastrointestinal: Present: distended, soft - Integumentary Integumentary: Present: pale - Neurologic Neurologic: Present: CNII-XII intact - Musculoskeletal Musculoskeletal Comment(s): no pain with deep palpation of right thigh, no mass palpated, strength is maintained supine and sitting Musculoskeletal: Present: strength equal bilaterally - Psychiatric Psychiatric: Present: A&O x's 3, appropriate affect, intact judgment & insight - Labs CBC & Chem 7: 18 07:26 18 07:26 Labs: Abnormal Lab Results - Last 24 Hours (Table) 03/04/18 03/04/18 03/05/18 Range/Units 19:20 21:09 07:08 RBC (4.30-5.90) m/uL Hgb (13.0-17.5) gm/dL Hct (39.0-53.0) % RDW (11.5-15.5) % Lymphocytes # (1.0-4.8) k/uL BUN (9-20) mg/dL Glucose (74-99) mg/dL POC Glucose (mg/dL) 139 H 135 H (75-99) mg/dL Calcium (8.4-10.2) mg/dL Ferritin (22.0-322.0) ng/mL Ur Specific [place] 1.037 H (1.001-1.035) Urine Protein 1+ H (Negative) Urine Blood Large H (Negative) Urine RBC >182 H (0-5) /hpf Urine Mucus Occasional H (None) /hpf 03/05/18 03/05/18 03/05/18 Range/Units 07:26 07:26 07:26 RBC 3.71 L (4.30-5.90) m/uL Hgb 10.1 L (13.0-17.5) gm/dL Hct 32.4 L (39.0-53.0) % RDW 16.3 H (11.5-15.5) % Lymphocytes # 0.4 L (1.0-4.8) k/uL BUN 26 H (9-20) mg/dL Glucose 122 H (74-99) mg/dL POC Glucose (mg/dL) (75-99) mg/dL Calcium 8.2 L (8.4-10.2) mg/dL Ferritin 1493.7 H (22.0-322.0) ng/mL Ur Specific [place] (1.001-1.035) Urine Protein (Negative) Urine Blood (Negative) Urine RBC (0-5) /hpf Urine Mucus (None) /hpf 03/05/18 03/05/18 Range/Units 11:36 17:08 RBC (4.30-5.90) m/uL Hgb (13.0-17.5) gm/dL Hct (39.0-53.0) % RDW (11.5-15.5) % Lymphocytes # (1.0-4.8) k/uL BUN (9-20) mg/dL Glucose (74-99) mg/dL POC Glucose (mg/dL) 166 H 143 H (75-99) mg/dL Calcium (8.4-10.2) mg/dL Ferritin (22.0-322.0) ng/mL Ur Specific [place] (1.001-1.035) Urine Protein (Negative) Urine Blood (Negative) Urine RBC (0-5) /hpf Urine Mucus (None) /hpf Microbiology - Last 24 Hours (Table) 03/03/18 18:45 Blood Culture Gram Stain - Preliminary Blood Blood Culture - Preliminary Presumptive Staph aureus - Imaging and Cardiology x-ray reports reviewed Assessment and Plan (1) Fever Narrative/Plan: Pancultures pending, empiric abx, vancomycin added, Dr. Cervantes consulted. Current Visit: Yes Status: Acute Priority: High Code(s): R50.9 - FEVER, UNSPECIFIED SNOMED Code(s): 383741270 (2) Malignant ascites Narrative/Plan: Patient's counts are adequate post chemotherapy. He did present with a fever though so, will wait for fever pattern to mil and likely pursue palliative paracentesis then. Patient has had a previous malignant paracentesis. As of note, patient stated that the pain in his leg is worse when he has ascites and it abates after he's had a paracentesis. Current Visit: Yes Status: Acute Priority: High Code(s): R18.0 - MALIGNANT ASCITES SNOMED Code(s): 971893353 (3) Gastric cancer Narrative/Plan: Pt is s/p 1st cycle of palliative [id number]. Pt has not suffered severe hematologic toxicites from chemo at this time. Will cont to monitor counts while inpatient. No interventions needed today Xray of painful right femur/hip reviewed report, evidence not convincing for metastatic disease. Nuclear medicine bone scan has been ordered. Pending results, further recommendations to follow Palliative paracentesis will be scheduled once cultures are complete and fever pattern has normalized. Current Visit: Yes Status: Acute Priority: High Code(s): C16.9 - MALIGNANT NEOPLASM OF STOMACH, UNSPECIFIED SNOMED Code(s): 706195618 Plan: Doctor attests:I have performed a history and physical exam of this pt, discussed with dictator. I agree with dictated note, documented as a scribe.
[2018-03-05] MEDS ORDERED: VANCOMYCIN TROUGH DUE 1 EACH MISC MISCELLANE ONE (20:00)
[2018-03-05 20:14] LABS: Glucose,Whole Blood 125 mg/dL (75-99)
[2018-03-05] MEDS: POLYETHYLENE GLYCOL 3350 17 GM POWD.PACK PO SCH (21:09)
[2018-03-05] MEDS: SODIUM CHLORIDE 0.9% 1,000 ML IV SCH (21:10)
--- NOTE | 2018-03-05 21:40 | PN ---
PROGRESS NOTE ATTENDING PHYSICIAN: Dr. Poli Camacho. CHIEF COMPLAINT: Re-evaluation. HISTORY OF PRESENT ILLNESS: This is a 67-year-old gentleman who was admitted to the hospital with fever. The patient recently received chemotherapy for gastric CA. This was his first chemotherapy. The patient presents to the hospital with symptoms. His white count was 5200 at the time of admission and subsequently revealed a white count down to 3.4. Hemoglobin 10.1, platelets 208. BUN 24, creatinine 0.65. Blood sugar is adequately controlled. He feels much better since his fever is resolved. REVIEW OF SYSTEMS: NEURO: Denies any headaches, dizziness. PSYCH: No anxiety. CARDIAC: No chest pain, angina, palpitation. RESPIRATORY: Denies shortness of breath, cough, hemoptysis. GI: No nausea, vomiting. Some abdominal discomfort, lower back pain. Pain in the right thigh area. CONSTITUTIONAL: No fever, chills. PHYSICAL EXAMINATION: Pleasant gentleman, at present in no distress. Vital signs reveal temperature 98.2, pulse 67, respirations 18, blood pressure 110/56. HEENT: Normocephalic. NECK: Supple. No JVD. No supraclavicular lymphadenopathy. CHEST: Clear to auscultation and percussion with decreased air flow at the bases. Some dullness of percussion in bilateral bases. ABDOMEN: Soft. Bowel sounds present. Some shifting fluid in the abdomen. Abdomen depression. Extremities reveal no edema. Good pulses, both upper extremities and lower extremities. Neurologically, awake, alert, oriented with well-coordinated movements. LABORATORY ASSESSMENT: White count was 3.4 yesterday. Blood sugar is somewhat elevated. Covered with insulin. BUN 24, creatinine 0.65. ASSESSMENT: 1. Fever, source undetermined. Possible urinary tract infection. 2. Gastric carcinoma on chemotherapy. 3. Diabetes mellitus. 4. Iron deficiency anemia. 5. Coronary artery disease. 6. Gastric carcinoma with the ascitic fluid. PLAN: The patient is stable. Continue present medical regimen. Patient's condition discussed with the patient. Prognosis remains guarded. He is advised to increase ambulation. The patient was seen by Dr. Cervantes. The patient on antibiotic. Expect patient discharge probably and outpatient medications will be continued. Prognosis remains guarded. MMODL / IJN: [id number] /
[2018-03-06] MEDS: VANCOMYCIN 1,250 MG in SODIUM CHLORIDE 0.9% 250 ML IVPB SCH ×3 (05:23→21:17)
[2018-03-06 06:56] LABS: Glucose,Whole Blood 138 mg/dL (75-99)
[2018-03-06] MEDS: CEFEPIME 2 GM in SODIUM CHLORIDE 0.9% 50 ML IVPB SCH ×2 (07:47→17:46)
[2018-03-06] MEDS: ISOSORBIDE MONONITRATE ER 60 MG TAB.ER.24H PO SCH (07:48)
[2018-03-06] MEDS: CYANOCOBALAMIN-FA-PYRIDOXINE 1 EACH TAB PO SCH (07:48)
[2018-03-06] MEDS: FOLIC ACID 1 MG TAB PO SCH (07:48)
[2018-03-06] MEDS: ENOXAPARIN 40 MG/0.4 ML SYRINGE SQ SCH (07:48)
[2018-03-06] MEDS: ASPIRIN 325 MG TAB PO SCH ×2 (07:49→08:14)
[2018-03-06] MEDS: ATENOLOL 50 MG TAB PO SCH ×2 (07:49→21:46)
[2018-03-06] MEDS: DOCUSATE 100 MG CAP PO SCH (07:49)
[2018-03-06] MEDS: INSULIN ASPART 100 UNIT/ML 1 ML 10 ML VIAL SQ SCH ×4 (08:06→21:47)
[2018-03-06 09:21] LABS: Anion Gap 5 mmol/L; Blood Urea Nitrogen 27 mg/dL (9-20); Calcium 7.9 mg/dL (8.4-10.2); Carbon Dioxide 29 mmol/L (22-30); Chloride 103 mmol/L (98-107); Glucose 162 mg/dL (74-99); Potassium 4.3 mmol/L (3.5-5.1); Sodium 137 mmol/L (137-145)
--- NOTE | 2018-03-06 10:28 | US ---
EXAMINATION TYPE: US abdomen limited DATE OF EXAM: 03/06/2018 COMPARISON: Prior PET/CT February 02, 2018 prior limited abdominal ultrasound December 20, 2017 CLINICAL HISTORY: assess for fluid. Metastatic gastric carcinoma. Scanning of bilateral upper and lower quadrants shows largest ascites pocket moderate to large in siz e in the right lower quadrant IMPRESSION: As above
[2018-03-06 11:12] LABS: Glucose,Whole Blood 190 mg/dL (75-99)
--- NOTE | 2018-03-06 13:53 | P.PN ---
Subjective Progress Note Date: 03/06/18 Principal diagnosis: fever, status post chemotherapy for metastatic gastric adenocarcinoma Pt seen in f/u, he is feeling much better then on admit. No fever, nausea, FUENTES , cough, he is awaiting paracentesis, his leg pain is stable, controlled better on analgesics. Objective - Vital Signs Vital signs: Vital Signs Temp 97.9 F 03/06/18 12:07 Pulse 70 03/06/18 12:07 Resp 18 03/06/18 12:07 BP 106/91 03/06/18 12:07 Pulse Ox 91 L 03/06/18 12:07 Intake & Output 03/05/18 03/06/18 03/06/18 18:59 06:59 18:59 Intake Total 1440 1570 Output Total 1 Balance 1439 1570 Weight 74.389 kg Intake: Intake, IV Titration 480 Amount Cefepime 2 gm In Sodium 50 Chloride 0.9% 50 ml @ 100 mls/hr IVPB Q8HR [facility] Rx# :[id number] Sodium Chloride 0.9% 1, 180 000 ml @ 20 mls/hr IV . Q24H [facility] Rx#:[id number] Vancomycin 1,250 mg In 250 Sodium Chloride 0.9% 250 ml @ 125 mls/hr IVPB Q8H [facility] Rx#:[id number] Oral 1440 1090 Output: Urine/Stool Mix 1 Other: Voiding Method Toilet Toilet Toilet # Voids 3 3 - Constitutional General appearance: Present: cooperative, no acute distress, thin - EENT Eyes: Present: anicteric sclerae ENT: Present: normal oropharynx - Respiratory Respiratory: bilateral: CTA, diminished (bases) - Cardiovascular Heart sounds: normal: S1, S2 - Peripheral edema leg Peripheral Edema: bilateral: None - Gastrointestinal General gastrointestinal: Present: distended, normal bowel sounds, soft - Integumentary Integumentary: Present: pale - Neurologic Neurologic: Present: CNII-XII intact - Psychiatric Psychiatric: Present: A&O x's 3, appropriate affect, intact judgment & insight - Labs CBC & Chem 7: 03/05/18 07:26 03/06/18 08:37 Labs: Abnormal Lab Results - Last 24 Hours (Table) 03/05/18 03/05/18 03/05/18 Range/Units 07:26 17:08 20:12 BUN (9-20) mg/dL Glucose (74-99) mg/dL POC Glucose (mg/dL) 143 H 125 H (75-99) mg/dL Calcium (8.4-10.2) mg/dL Ferritin 1493.7 H (22.0-322.0) ng/mL 03/06/18 03/06/18 03/06/18 Range/Units 06:55 08:37 11:10 BUN 27 H (9-20) mg/dL Glucose 162 H (74-99) mg/dL POC Glucose (mg/dL) 138 H 190 H (75-99) mg/dL Calcium 7.9 L (8.4-10.2) mg/dL Ferritin (22.0-322.0) ng/mL Microbiology - Last 24 Hours (Table) 03/03/18 18:45 Blood Culture Gram Stain - Final Blood Blood Culture - Final Staphylococcus aureus - Imaging and Cardiology NM bone scan report reviewed Assessment and Plan (1) Fever Narrative/Plan: BC positive, on abx, ID following Current Visit: Yes Status: Acute Priority: High Code(s): R50.9 - FEVER, UNSPECIFIED SNOMED Code(s): 205686897 (2) Malignant ascites Narrative/Plan: Pt is having palliative paracentesis today Current Visit: Yes Status: Acute Priority: High Code(s): R18.0 - MALIGNANT ASCITES SNOMED Code(s): 591012687 (3) Gastric cancer Narrative/Plan: Pt will continue of treatment and follow up outpatient Current Visit: Yes Status: Acute Priority: High Code(s): C16.9 - MALIGNANT NEOPLASM OF STOMACH, UNSPECIFIED SNOMED Code(s): 670195948 Plan: Rt leg pain: We reviewed bone scan results. Not convincing for mets. Pt states having similar pain in the leg previously, when he has paracentesis it feels better. Will see pt after paracentesis and see how he is doing. If pain persists then further work up will be done.
[2018-03-06] MEDS: MORPHINE SULFATE 4 MG/ML SYRINGE IV PRN (14:42)
[2018-03-06 17:16] LABS: Glucose,Whole Blood 81 mg/dL (75-99)
[2018-03-06] MEDS: ISOSORBIDE MONONITRATE ER 30 MG TAB.ER.24H PO SCH (17:43)
[2018-03-06] MEDS: LISINOPRIL 10 MG TAB PO SCH (17:43)
[2018-03-06] MEDS: ATORVASTATIN 40 MG TAB PO SCH (17:43)
[2018-03-06 21:11] LABS: Glucose,Whole Blood 169 mg/dL (75-99)
[2018-03-06] MEDS: SODIUM CHLORIDE 0.9% 1,000 ML IV SCH (21:20)
[2018-03-06] MEDS: POLYETHYLENE GLYCOL 3350 17 GM POWD.PACK PO SCH (21:47)
--- NOTE | 2018-03-06 22:44 | PN ---
PROGRESS NOTE ATTENDING PHYSICIAN: Dr. Poli Camacho. CHIEF COMPLAINT: Re-evaluation. HISTORY OF PRESENT ILLNESS: This gentleman was admitted to the hospital with a fever. His blood culture was positive for Staph aureus, methicillin sensitive. The patient has recently had chemotherapy for gastric CA. He is actually feeling well. He has been afebrile. His abdominal distention significant with causing him some distress. The patient does complain of some difficulty breathing and abdominal discomfort and pain to the right thigh. Otherwise feels good. REVIEW OF SYSTEMS: NEURO: Denies any headaches, dizziness. PSYCH: No anxiety. CARDIAC: No chest pain, angina, palpitations. RESPIRATORY: The patient does have shortness of breath and minimal cough. No hemoptysis. GI: No nausea, vomiting, abdominal pain. Does have some discomfort from distention of the abdomen. EXTREMITIES: Some pain in the right thigh area. CONSTITUTIONAL: No fever, chills. PHYSICAL EXAMINATION: Pleasant gentleman in no distress. Vital signs reveal temperature 98.3, pulse 88, respirations 16, blood pressure 120/56, pulse ox of 90% on room air. HEENT: Normocephalic. No JVD. CHEST: Clear to auscultation with decreased air flow at the bases, dullness on percussion bilateral bases. CARDIAC: Normal S1, S2 with no gallop. Systolic murmur 2/6 left sternal border. Abdomen is distended even more than yesterday, tense. Bowel sounds are active. Extremities reveal trace edema. Neurologically, awake, alert, oriented with well- coordinated movements. LABORATORY ASSESSMENT: Electrolytes which are normal. Glucose was 162, covered with insulin. Blood culture 1/2 positive for Staph aureus, methicillin sensitive. ASSESSMENT: 1. Methicillin-sensitive Staphylococcus aureus bacteremia. 2. Gastric carcinoma. 3. Diabetes mellitus. 4. Coronary artery disease. 5. Ascites. PLAN: Continue present medical regimen with therapeutic abdominal paracentesis. The patient's condition discussed with the patient. Prognosis guarded. Await ID's decision on antibiotic. I believe the patient should be able to go on to IV Kefzol and subsequently oral Keflex upon discharge. Potential discharge within the next 48 hours. MMODL / IJN: [id number] /
[2018-03-07] MEDS: CEFEPIME 2 GM in SODIUM CHLORIDE 0.9% 50 ML IVPB SCH ×3 (02:11→16:45)
[2018-03-07] MEDS: VANCOMYCIN 1,250 MG in SODIUM CHLORIDE 0.9% 250 ML IVPB SCH ×3 (05:09→17:44)
[2018-03-07 07:21] LABS: Glucose,Whole Blood 129 mg/dL (75-99)
[2018-03-07] MEDS: INSULIN ASPART 100 UNIT/ML 1 ML 10 ML VIAL SQ SCH ×4 (07:43→20:46)
[2018-03-07] MEDS: ASPIRIN 325 MG TAB PO SCH (07:45)
[2018-03-07 07:50] LABS: INR 1.2 (<1.2); Prothrombin Time 11.7 sec (9.0-12.0)
[2018-03-07 08:07] LABS: Anion Gap 5 mmol/L; Blood Urea Nitrogen 21 mg/dL (9-20); Calcium 7.8 mg/dL (8.4-10.2); Carbon Dioxide 29 mmol/L (22-30); Chloride 104 mmol/L (98-107); Glucose 130 mg/dL (74-99); Potassium 4.5 mmol/L (3.5-5.1); Sodium 138 mmol/L (137-145)
[2018-03-07] MEDS: DOCUSATE 100 MG CAP PO SCH (08:39)
[2018-03-07] MEDS: CYANOCOBALAMIN-FA-PYRIDOXINE 1 EACH TAB PO SCH (08:39)
[2018-03-07] MEDS: ATENOLOL 50 MG TAB PO SCH ×2 (08:39→20:46)
[2018-03-07] MEDS: FOLIC ACID 1 MG TAB PO SCH (08:39)
[2018-03-07] MEDS: ISOSORBIDE MONONITRATE ER 60 MG TAB.ER.24H PO SCH (08:46)
[2018-03-07 11:47] LABS: Glucose,Whole Blood 120 mg/dL (75-99)
[2018-03-07 17:25] LABS: Glucose,Whole Blood 122 mg/dL (75-99)
[2018-03-07] MEDS: ATORVASTATIN 40 MG TAB PO SCH (17:43)
[2018-03-07] MEDS: ISOSORBIDE MONONITRATE ER 30 MG TAB.ER.24H PO SCH (17:44)
[2018-03-07] MEDS: LISINOPRIL 10 MG TAB PO SCH (17:44)
--- NOTE | 2018-03-07 18:23 | P.PN ---
Subjective Progress Note Date: 03/07/18 Principal diagnosis: fever, status post chemotherapy for metastatic gastric adenocarcinoma patient seen today in follow-up, he feels pretty good, anxiously awaiting paracentesis. His right leg discomfort persists, patient anticipates improvement after paracentesis. Denies fevers, tolerating oral intake well, no cough, diarrhea, swelling in the legs, he is able to ambulate a little bit, no bleeding or other pain to report. Objective - Vital Signs Vital signs: Vital Signs Temp 98.2 F 03/07/18 13:20 Pulse 74 03/07/18 16:15 Resp 18 03/07/18 16:15 BP 114/70 03/07/18 16:15 Pulse Ox 97 03/07/18 16:15 Intake & Output 03/06/18 03/07/18 03/07/18 18:59 06:59 18:59 Intake Total 1230 410 Balance 1230 410 Weight 74.389 kg Intake: Intake, IV Titration 790 410 Amount Cefepime 2 gm In Sodium 50 Chloride 0.9% 50 ml @ 100 mls/hr IVPB Q8HR [facility] Rx# :[id number] Sodium Chloride 0.9% 1, 240 160 000 ml @ 20 mls/hr IV . Q24H [facility] Rx#:[id number] Vancomycin 1,250 mg In 500 250 Sodium Chloride 0.9% 250 ml @ 125 mls/hr IVPB Q8H [facility] Rx#:[id number] Oral 440 Other: Voiding Method Toilet Toilet Toilet # Voids 3 2 # Bowel Movements 1 - Constitutional General appearance: Present: average body habitus, cooperative, no acute distress - EENT Eyes: Present: anicteric sclerae - Respiratory Respiratory: bilateral: CTA, diminished (bases) - Cardiovascular Heart sounds: normal: S1, S2 Abnormal Heart Sounds: Absent: systolic murmur, diastolic murmur, rub, S3 Gallop , S4 Gallop, click, other - Gastrointestinal General gastrointestinal: Present: distended, soft - Integumentary Integumentary: Present: pale - Neurologic Neurologic: Present: CNII-XII intact - Musculoskeletal Musculoskeletal: Present: generalized weakness, strength equal bilaterally - Psychiatric Psychiatric: Present: A&O x's 3, appropriate affect, intact judgment & insight - Labs CBC & Chem 7: 03/05/18 07:26 03/07/18 07:01 Labs: Abnormal Lab Results - Last 24 Hours (Table) 03/06/18 03/07/18 03/07/18 Range/Units 21:10 07:01 07:01 INR 1.2 H (<1.2) BUN 21 H (9-20) mg/dL Glucose 130 H (74-99) mg/dL POC Glucose (mg/dL) 169 H (75-99) mg/dL Calcium 7.8 L (8.4-10.2) mg/dL 03/07/18 03/07/18 03/07/18 Range/Units 07:20 11:46 17:24 INR (<1.2) BUN (9-20) mg/dL Glucose (74-99) mg/dL POC Glucose (mg/dL) 129 H 120 H 122 H (75-99) mg/dL Calcium (8.4-10.2) mg/dL Microbiology - Last 24 Hours (Table) 03/05/18 20:56 Blood Culture - Preliminary Blood No Growth after 24 hours 03/05/18 20:21 Blood Culture - Preliminary Blood No Growth after 24 hours Assessment and Plan (1) Fever Narrative/Plan: Patient continues on antibiotics, being followed by Infectious Disease for positive staph aureus blood culture. Patient will complete antibiotic therapy as directed. Patient will not resume chemotherapy until antibiotic therapy complete. Current Visit: Yes Status: Resolved Priority: High Code(s): R50.9 - FEVER , UNSPECIFIED SNOMED Code(s): 623062948 (2) Malignant ascites Narrative/Plan: patient awaiting paracentesis Current Visit: Yes Status: Acute Priority: High Code(s): R18.0 - MALIGNANT ASCITES SNOMED Code(s): 593657704 (3) Gastric cancer Narrative/Plan: Patient's treatment will be delayed next week as he will be completing antibiotics for his positive blood culture. Follow-up with Dr. Casanova on the , appointment date and time documented in discharge plan. Patient aware of the plan and agrees. Current Visit: Yes Status: Acute Priority: High Code(s): C16.9 - MALIGNANT NEOPLASM OF STOMACH, UNSPECIFIED SNOMED Code(s): 222127231
[2018-03-07 20:00] LABS: Glucose,Whole Blood 167 mg/dL (75-99)
[2018-03-07] MEDS: POLYETHYLENE GLYCOL 3350 17 GM POWD.PACK PO SCH (20:47)
[2018-03-07 20:51] LABS: Appearance,BF Clear; Nucleated Cells, Body Fluid 80 /uL; RBC, Body Fluid 395 /uL
[2018-03-07 21:06] LABS: Mononuclear WBC,Body Fluid 88 %; Polynuclear WBC,Body Fluid 12 %; Total Cells Counted,Body Fluid 100
[2018-03-07 22:47] VITALS: RESP 16
--- NOTE | 2018-03-07 23:03 | PN ---
PROGRESS NOTE ATTENDING PHYSICIAN: Dr. Poli Camacho. CHIEF COMPLAINT: Re-evaluation. HISTORY OF PRESENT ILLNESS: A 67-year-old gentleman was admitted to the hospital with a fever. The patient's blood culture positive for Staph aureus, methicillin sensitive. No clear site of infection. The patient is actually doing fairly well. The patient is still on vancomycin and cefepime by ID. The patient has significant ascites for which he will be planned for therapeutic paracentesis. REVIEW OF SYSTEMS: NEURO: Denies any headaches, dizziness. PSYCH: No anxiety. CARDIAC: No chest pain, angina, palpitation. RESPIRATORY: Some shortness of breath or difficulty in taking deep breath. GI: No nausea, vomiting, abdominal pain, did have a bowel movement. : No symptoms of dysuria, hematuria. EXTREMITIES: No pain, edema. CONSTITUTIONAL: No fever, chills. PHYSICAL EXAMINATION: Pleasant gentleman in no distress. Vital signs reveal temperature 98.4, pulse 75, respirations 22, blood pressure 128/69, pulse ox of 92%. HEENT: Normocephalic. NECK: Supple. No JVD. CHEST: Clear to auscultation with decreased air flow at the bases, especially the right base with dullness on percussion. CARDIAC: Distant sounds, S1, S2 with no gallop. Systolic murmur 2/6 left sternal border. ABDOMEN: Protuberant, tense. Bowel sounds active. Extremities reveal no edema. Neurologically, awake, alert, oriented with well-coordinated movements. LABORATORY ASSESSMENT: Blood sugar is adequately controlled. ASSESSMENT: 1. Gastric carcinoma. 2. Ascites. 3. Bacteremia with Staphylococcus aureus sensitive to methicillin. 4. Diabetes mellitus. 5. Coronary artery disease. PLAN: The patient is stable. Continue present medical regimen. Patient potential discharge home tomorrow. Prognosis remains guarded. MMODL / IJN: [id number] /
[2018-03-07] MEDS: SODIUM CHLORIDE 0.9% 1,000 ML IV SCH (23:48)
[2018-03-08] MEDS: CEFEPIME 2 GM in SODIUM CHLORIDE 0.9% 50 ML IVPB SCH ×2 (00:07→10:03)
[2018-03-08] MEDS: VANCOMYCIN 1,250 MG in SODIUM CHLORIDE 0.9% 250 ML IVPB SCH (01:20)
[2018-03-08 05:50] VITALS: BP 111/66; PULSE 81; TEMP 99.4
[2018-03-08 07:20] LABS: Glucose,Whole Blood 146 mg/dL (75-99)
[2018-03-08 07:35] LABS: Anion Gap 6 mmol/L; Blood Urea Nitrogen 17 mg/dL (9-20); Calcium 7.4 mg/dL (8.4-10.2); Carbon Dioxide 26 mmol/L (22-30); Chloride 104 mmol/L (98-107); Glucose 121 mg/dL (74-99); Potassium 3.7 mmol/L (3.5-5.1); Sodium 136 mmol/L (137-145)
--- NOTE | 2018-03-08 07:51 | US ---
Therapeutic paracentesis. DATE OF EXAM: 03/07/2018 CLINICAL HISTORY: Ascites The procedure was discussed with the patient. The risks, complications, benefits, and alternatives we re discussed and any questions were answered. Informed consent was obtained. The patient was placed s upine on the ultrasound table and prepped and draped in the usual sterile fashion. All elements of maximal barrier technique were utilized. Under ultrasound guidance, access into the right lower quadrant was obtained, via the paracentesis catheter system and direct ultrasound guidanc e. Approximately 4.7 liters of straw-colored fluid was removed. The patient was stable throughout the pr ocedure and remained stable upon discharge from Department of Radiology. IMPRESSION: Successful therapeutic paracentesis under ultrasound guidance.
[2018-03-08] MEDS: CYANOCOBALAMIN-FA-PYRIDOXINE 1 EACH TAB PO SCH (08:40)
[2018-03-08] MEDS: ASPIRIN 325 MG TAB PO SCH (08:40)
[2018-03-08] MEDS: ATENOLOL 50 MG TAB PO SCH (08:40)
[2018-03-08] MEDS: INSULIN ASPART 100 UNIT/ML 1 ML 10 ML VIAL SQ SCH ×2 (08:40→13:27)
[2018-03-08] MEDS: DOCUSATE 100 MG CAP PO SCH (08:41)
[2018-03-08] MEDS: FOLIC ACID 1 MG TAB PO SCH (08:41)
[2018-03-08] MEDS: ISOSORBIDE MONONITRATE ER 60 MG TAB.ER.24H PO SCH (08:41)
[2018-03-08] MEDS ORDERED: cefTRIAXone 2,000 MG in SODIUM CHLORIDE 0.9% 100 ML IVPB SCH (09:00)
[2018-03-08 11:00] LABS: Glucose,Whole Blood 158 mg/dL (75-99)
--- NOTE | 2018-03-08 17:56 | P.PN ---
Subjective Progress Note Date: 03/08/18 67-year-old male who was having difficulty with some abdominal discomfort and distention over several months with weight loss. Workup revealed evidence of ascites and what appeared to be omental caking and peritoneal lymphadenopathy. 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 The patient developed fever and significant increased amount of pain to his right leg at the femur which is of some concern because of a prior right total hip arthroplasty. The patient was pain became so severe he was no longer able to bear weight and was brought to hospital. Fevers have improved denies significant chills or rigors but had significant chills at home. With the positive blood culture for gram-positive cocci the infectious diseases consultation was requested. 03/08/2018 patient is now considerably improved. The blood culture has been verified as MSSA and the patient has follow-up cultures are negative. He is getting ready for discharge to home. He has no other new complaints. He is feeling considerably better looks forward to going home. Objective - Vital Signs Vital signs: Vital Signs Temp 99.4 F 03/08/18 05:49 Pulse 81 03/08/18 08:00 Resp 16 03/08/18 08:00 BP 111/66 03/08/18 05:49 Pulse Ox 96 03/08/18 05:49 Intake & Output 03/07/18 03/08/18 03/08/18 18:59 06:59 18:59 Intake Total 410 1590 Balance 410 1590 Intake: Intake, IV Titration 410 520 Amount Cefepime 2 gm In Sodium 50 Chloride 0.9% 50 ml @ 100 mls/hr IVPB Q8HR [facility] Rx# :[id number] Sodium Chloride 0.9% 1, 160 220 000 ml @ 20 mls/hr IV . Q24H [facility] Rx#:[id number] Vancomycin 1,250 mg In 250 Sodium Chloride 0.9% 250 ml @ 125 mls/hr IVPB Q8H [facility] Rx#:[id number] Vancomycin 1,250 mg In 250 Sodium Chloride 0.9% 250 ml @ 125 mls/hr IVPB Q8H [facility] Rx#:[id number] Oral 1070 Other: Voiding Method Toilet Toilet Toilet # Voids 3 - Exam Pleasant 67-year-old male who has had recent weight loss and appears chronically ill HEENT: Anicteric conjunctiva are pink and moist nasal mucosa grossly intact without significant lesions, there is no thrush. Dentition is poor Neck: The neck is supple without significant lymphadenopathy or thyromegaly. Lungs: Good bilateral air entry evidence of bibasilar crackles and minimal dullness at the bases. No severe wheezing. No significant egophony Heart: Regular rate and rhythm with an audible S1-S2, no S3 positive S4. There is no significant murmur click or rub, PMI was nondisplaced. Abdomen: Evidence of marked improvement of ascites status post paracentesis today there is some diffuse abdominal discomfort but no significant point tenderness. The abdomen is not rigid. No hepatosplenomegaly could be palpated. Extremities: The upper extremities have excellent pulses they are symmetric, no significant petechiae or telangiectasia. No splinter hemorrhages were noted. Lower extremities are generally cool there is no levi ulcers, slight discoloration the lower extremities is noted with a slight purplish hue, capillary refill however is normal. Neuro: Awake alert oriented to person place and time. There are no acute new gross focal sensory motor deficits. - Labs CBC & Chem 7: 03/05/18 07:26 03/08/18 06:53 Labs: Abnormal Lab Results - Last 24 Hours (Table) 03/07/18 03/08/18 03/08/18 Range/Units 19:59 06:53 07:17 Sodium 136 L (137-145) mmol/L Creatinine 0.62 L (0.66-1.25) mg/dL Glucose 121 H (74-99) mg/dL POC Glucose (mg/dL) 167 H 146 H (75-99) mg/dL Calcium 7.4 L (8.4-10.2) mg/dL 03/08/18 Range/Units 10:59 Sodium (137-145) mmol/L Creatinine (0.66-1.25) mg/dL Glucose (74-99) mg/dL POC Glucose (mg/dL) 158 H (75-99) mg/dL Calcium (8.4-10.2) mg/dL Microbiology - Last 24 Hours (Table) 03/07/18 16:49 Gram Stain - Preliminary Ascites Fluid Body Fluid Culture - Preliminary 03/05/18 20:56 Blood Culture - Preliminary Blood No Growth after 48 hours 03/05/18 20:21 Blood Culture - Preliminary Blood No Growth after 48 hours Laboratory Results WBC 5.4 k/uL (3.8-10.6) 03/05/18 07:26 RBC 3.71 m/uL (4.30-5.90) L 03/05/18 07:26 Hgb 10.1 gm/dL (13.0-17.5) L 03/05/18 07:26 Hct 32.4 % (39.0-53.0) L 03/05/18 07:26 MCV 87.4 fL (80.0-100.0) 03/05/18 07: MCH 27.2 pg (25.0-35.0) 03/05/18 07: MCHC 31.1 g/dL (31.0-37.0) 03/05/18 07: RDW 16.3 % (11.5-15.5) H 03/05/18 07:26 Plt Count 199 k/uL (150-450) 03/05/18 07:26 Neutrophils % 90 % 03/05/18 07:26 Lymphocytes % 8 % 03/05/18 07:26 Monocytes % 1 % 03/05/18 07:26 Eosinophils % 1 % 03/05/18 07:26 Basophils % 0 % 03/05/18 07:26 Neutrophils # 4.8 k/uL (1.3-7.7) 03/05/18 07:26 Lymphocytes # 0.4 k/uL (1.0-4.8) L 03/05/18 07:26 Monocytes # 0.1 k/uL (0-1.0) 03/05/18 07:26 Eosinophils # 0.0 k/uL (0-0.7) 03/05/18 07:26 Basophils # 0.0 k/uL (0-0.2) 03/05/18 07:26 Hypochromasia Moderate 03/05/18 07:26 Anisocytosis Slight 03/05/18 07:26 Retic Count 0.6 % (0.5-2.0) 03/04/18 08:19 PT 11.7 sec (9.0-12.0) 03/07/18 07:01 INR 1.2 (<1.2) H 03/07/18 07:01 APTT 22.4 sec (22.0-30.0) 03/03/18 18:45 Sodium 136 mmol/L (137-145) L 03/08/18 06:53 Potassium 3.7 mmol/L (3.5-5.1) 03/08/18 06:53 Chloride 104 mmol/L (98-107) 03/08/18 06:53 Carbon Dioxide 26 mmol/L (22-30) 03/08/18 06:53 Anion Gap 6 mmol/L 03/08/18 06:53 BUN 17 mg/dL (9-20) 03/08/18 06:53 Creatinine 0.62 mg/dL (0.66-1.25) L 03/08/18 06:53 Est GFR (CKD-EPI)AfAm >90 (>60 ml/min/1.73 sqM) 03/08/18 06:53 Est GFR (CKD-EPI)NonAf >90 (>60 ml/min/1.73 sqM) 03/08/18 06:53 Glucose 121 mg/dL (74-99) H 03/08/18 06:53 POC Glucose (mg/dL) 158 mg/dL (75-99) H 03/08/18 10:59 POC Glu Outpatient Coder ID Noni Reyna 03/08/18 10:[address] Glu mg/dL 114 03/03/18 18:55 Hemoglobin A1c 5.6 % (4.0-6.0) 03/03/18 18:55 Plasma Lactic Acid Ken 0.9 mmol/L (0.7-2.0) 03/03/18 18:45 Calcium 7.4 mg/dL (8.4-10.2) L 03/08/18 06:53 Magnesium 2.2 mg/dL (1.6-2.3) 03/04/18 08:19 Iron 31 ug/dL (65-175) L 03/04/18 08:19 TIBC 253 ug/dL (228-460) 03/04/18 08:19 Iron Saturation 12.25 (15.00-50.00) L 03/04/18 08:19 Ferritin 1493.7 ng/mL (22.0-322.0) H 03/05/18 07:26 Total Bilirubin 0.6 mg/dL (0.2-1.3) 03/04/18 08:19 AST 25 U/L (17-59) 03/04/18 08:19 ALT 20 U/L (21-72) L 03/04/18 08:19 Alkaline Phosphatase 68 U/L (38-126) 03/04/18 08:19 Total Creatine Kinase 47 U/L (55-170) L 03/03/18 18:45 CK-MB (CK-2) 0.3 ng/mL (0.0-2.4) 03/03/18 18:45 CK-MB (CK-2) Rel Index 0.6 03/03/18 18:45 Troponin I <0.012 ng/mL (0.000-0.034) 03/03/18 18:45 Total Protein 5.9 g/dL (6.3-8.2) L 03/04/18 08:19 Albumin 3.0 g/dL (3.5-5.0) L 03/04/18 08:19 Triglycerides 75 mg/dL (<150) 03/04/18 08:19 Cholesterol 179 mg/dL (<200) 03/04/18 08:19 LDL Cholesterol, Calc 122 mg/dL (0-99) H 03/04/18 08:19 HDL Cholesterol 42 mg/dL (40-60) 03/04/18 08:19 Lipase 152 U/L (23-300) 03/04/18 08:19 Urine Color Yellow 03/04/18 19:20 Urine Appearance Cloudy (Clear) 03/04/18 19:20 Urine pH 6.0 (5.0-8.0) 03/04/18 19:20 Ur Specific [place] 1.037 (1.001-1.035) H 03/04/18 19:20 Urine Protein 1+ (Negative) H 03/04/18 19:20 Urine Glucose (UA) Negative (Negative) 03/04/18 19:20 Urine Ketones Negative (Negative) 03/04/18 19:20 Urine Blood Large (Negative) H 03/04/18 19:20 Urine Nitrite Negative (Negative) 03/04/18 19:20 Urine Bilirubin Negative (Negative) 03/04/18 19:20 Urine Urobilinogen <2.0 mg/dL (<2.0) 03/04/18 19:20 Ur Leukocyte Esterase Negative (Negative) 03/04/18 19:20 Urine RBC >182 /hpf (0-5) H 03/04/18 19:20 Urine WBC 3 /hpf (0-5) 03/04/18 19:20 Urine Mucus Occasional /hpf (None) H 03/04/18 19:20 Fluid Source Ascitic 03/07/18 15:45 Fluid Appearance Clear 03/07/18 15:45 Fluid RBC 395 /uL 03/07/18 15:45 Fluid Nucleated Cells 80 /uL 03/07/18 15:45 Fluid Polynuclear WBCs 12 % 03/07/18 15:45 Fluid Mononuclear WBCs 88 % 03/07/18 15:45 Fluid Comment 03/07/18 15:45 Stool Occult Blood Negative (Negative) 03/03/18 10:05 Vancomycin Trough 17.6 ug/mL 03/05/18 20:21 Influenza Type A RNA Not Detected (Not Detectd) 03/03/18 22:20 Influenza Type B (PCR) Not Detected (Not Detectd) 03/03/18 22:20 Virus Source See Below 03/03/18 22:20 Viral Test See Below 03/03/18 22:20 Virus Analysis Interp See Below 03/03/18 22:20 Microbiology 03/07/18 16:49 Ascites Fluid Gram Stain - Preliminary 03/07/18 16:49 Ascites Fluid Body Fluid Culture - Preliminary 03/05/18 20:56 Blood Blood Culture - Preliminary No Growth after 48 hours 03/05/18 20:21 Blood Blood Culture - Preliminary No Growth after 48 hours 03/03/18 18:45 Blood Blood Culture Gram Stain - Final 03/03/18 18:45 Blood Blood Culture - Final Staphylococcus aureus 03/03/18 18:45 Blood Blood Culture - Final Assessment and Plan (1) Gram-positive cocci bacteremia Narrative/Plan: 67-year-old male since hospital with increasing abdominal discomforts significant generalized weakness and severe pain to his right hip area. The presentation there is concerns to metastatic involvement into the right hip area and workup is in process. Patient was very weak at admission and did present with a fever, this is now improved. The patient has evidence of gram-positive cocci in the blood and there is an [id number] in left anterior chest wall. On the exam this is intact without erythema crepitus fluctuance in the nursing noticed no difficulties with the site either. Await final blood culture results. Continue the current antibiotic therapy of cefepime and vancomycin given his relative neutropenia and positive blood culture. Follow blood cultures will be ordered as appropriate. The patient does have potential sites of infection other than his [id number] and will be monitored. The patient complains of significant constipation and MiraLAX and Colace are adequate to relieve his difficulties. 03/08/2018 the patient is improved. Paracentesis that occurred in his respiratory status is improved his abdominal pain is improved and he is having bowel movements with less difficulties. No evidence of any positive culture from the peritoneal fluid . MSSA isolated from blood culture at admission but not on follow-up. Source could be the intra-abdominal site. The port site has been functioning well with no difficulty and there has not been multiple positive cultures. Does not appear the port if the site of infection and will plan to further weeks of intravenous antibiotic therapy and close follow-up with oncology in follow-up in the office at end of therapy. Antibiotic therapy has been arranged. Status: Acute Code(s): R78.81 - BACTEREMIA SNOMED Code(s): 037338093442 (2) Gastric cancer Status: Acute Priority: High Code(s): C16.9 - MALIGNANT NEOPLASM OF STOMACH , UNSPECIFIED SNOMED Code(s): 355374936 (3) Peritoneal carcinomatosis Status: Acute Code(s): C78.6 - SECONDARY MALIGNANT NEOPLASM OF RETROPERITON AND PERITONEUM; C80.1 - MALIGNANT (PRIMARY) NEOPLASM, UNSPECIFIED SNOMED Code( s): 256396321
--- NOTE | 2018-03-31 11:39 | P.DS ---
Providers Date of admission: 03/03/18 20:51 Attending physician: Osvaldo Camacho Consults: 03/03/18 20:49 Consult Physician Urgent Consulting Provider: Leeroy Casanova Consult Reason/Comments: established patient, fever after chemo Do you want consulting provider notified?: Yes 03/03/18 23:57 Consult Physician Urgent Consulting Provider: Juventino Cervantes Consult Reason/Comments: febril/s/p chemo gastric cancer Do you want consulting provider notified?: Yes, Notify in am Primary care physician: Osvaldo [facility] Hospital Course: This 67-year-old gentleman was admitted to the hospital after presenting to the emergency room with complaints of malaise weakness and noted to have a fever. The patient had recently been diagnosed with carcinoma of the stomach but has to take with recurrent ascites. The patient has had an outpatient abdominal paracentesis twice. The patient denied any abdominal pain at the time of presentation he is complaining of some pain in the right thigh area. Further evaluation did not reveal any evidence of bony metastases. The patient's blood cultures did come back positive for staph aureus methicillin sensitive. He had been on antibiotics since admission and condition and improved significantly. The patient had recent chemotherapy. However his white counts were normal range with no evidence of neutropenia. The patient underwent a therapeutic abdominal paracentesis because of significant discomfort as a fluid buildup. Patient also had some peripheral edema. He is mildly anemic but stable. The patient has history of diabetes mellitus her sugars adequately controlled. Patient's general condition having improved was discharged home to continue with IV antibiotic for the next 12 days in the outpatient. Dr. Cervantes had seen the patient and advised IV antibiotics versus oral antibiotics on discharge. His repeat blood cultures have been negative. There was no clear source of the infection. He has a port but did not seem to be the site of infection. Patient condition stable at the time of discharge. Final diagnosis to include 1. Staph aureus bacteremia source undetermined 2. Gastric carcinoma 3. Ascites 4. Anemia secondary to chronic disease 5. Diabetes metastatic to 6. Dehydration 7. Decreased nutritional status 8. Stable coronary artery disease 9. Known total occlusion of the abdominal aorta Plan - Discharge Summary New Discharge Prescriptions: New RX: Acetaminophen Tab [Tylenol] 650 mg PO Q6HR PRN tab PRN Reason: Mild Pain Or Fever > 100.5 RX: Docusate [Colace] 100 mg PO DAILY cap RX: Isosorbide Mononitrate ER [Imdur] 60 mg PO QAM tab.er.24h RX: Polyethylene Glycol 3350 [Miralax] 17 gm PO HS powd.pack cefTRIAXone [Rocephin] 2,000 mg IVPB Q24HR #12 vial Continue RX: Folic Acid 400 mcg PO DAILY RX: Vitamin B Complex 1 cap PO DAILY RX: Aspirin 325 mg PO DAILY RX: Enalapril Maleate [Vasotec] 5 mg PO W/SUPPER RX: Atenolol [Tenormin] 50 mg PO BID RX: Atorvastatin Calcium [Lipitor] 40 mg PO W/SUPPER RX: amLODIPine [Norvasc] 5 mg PO QAM RX: Isosorbide Mononitrate ER [Imdur] 30 mg PO BID RX: metFORMIN HCL ER [Glucophage Xr] 500 mg PO PC-SUPPER RX: Ascorbic Acid [Vitamin C] 500 mg PO DAILY Discharge Medication List RX: Aspirin 325 mg PO DAILY 04/15/15 [History] RX: Atenolol [Tenormin] 50 mg PO BID 04/15/15 [History] RX: Atorvastatin Calcium [Lipitor] 40 mg PO W/SUPPER 04/15/15 [History] RX: Enalapril Maleate [Vasotec] 5 mg PO W/SUPPER 04/15/15 [History] RX: Folic Acid 400 mcg PO DAILY 04/15/15 [History] RX: Vitamin B Complex 1 cap PO DAILY 04/15/15 [History] RX: amLODIPine [Norvasc] 5 mg PO QAM 12/18/17 [History] RX: Isosorbide Mononitrate ER [Imdur] 30 mg PO BID 12/20/17 [History] RX: Ascorbic Acid [Vitamin C] 500 mg PO DAILY 03/04/18 [History] RX: metFORMIN HCL ER [Glucophage Xr] 500 mg PO PC-SUPPER 03/04/18 [History] RX: Acetaminophen Tab [Tylenol] 650 mg PO Q6HR PRN tab 03/08/18 [Rx] RX: Docusate [Colace] 100 mg PO DAILY cap 03/08/18 [Rx] RX: Isosorbide Mononitrate ER [Imdur] 60 mg PO QAM tab.er.24h 09/21/18 [Rx] RX: Polyethylene Glycol 3350 [Miralax] 17 gm PO HS powd.pack 03/08/18 [Rx] cefTRIAXone [Rocephin] 2,000 mg IVPB Q24HR #12 vial 03/08/18 [Rx] Follow up Appointment(s)/Referral(s): Osvaldo Camacho MD [Primary Care Provider] - 03/19/18 4:30 pm Juventino Cervantes MD [STAFF PHYSICIAN] - Leeroy Casanova MD [STAFF PHYSICIAN] - 03/21/18 11:00 am [facility] Visiting Nurse, [NON-STAFF] - 1-2 Days Ambulatory/Diagnostic Orders: Basic Metabolic Panel [LAB.AMB] Location: None Selected Complete Blood Count w/diff [LAB.AMB] Location: None Selected Patient Instructions/Handouts: Cephalexin (By mouth), Ceftriaxone (By injection ), Pleural Effusion (DC), Ascites (DC), Neutropenia (DC) Activity/Diet/Wound Care/Special Instructions: weekly blood work=BMP,CBC with diff -see scripts [facility]-09 at 10: 15am. Discharge Disposition: HOME SELF-CARE
== END 2018-03-08 15:50 | disposition home or self-care (01) | DRG 872 ==
LOC: EC 18:04 → 5MS5E 20:51 → 5ONC 03-05 15:41
PROVIDERS: ADMIT Internal Medicine; ATTEND Internal Medicine
PROC: 0W9G3ZZ Drainage of Peritoneal Cavity, Percutaneous Approach (ICD-10-PCS; principal; 2018-03-07)
DX: R78.81 Bacteremia (principal); C78.6 Secondary malignant neoplasm of retroperitoneum and peritoneum; J90 Pleural effusion, not elsewhere classified; R18.0 Malignant ascites; C16.9 Malignant neoplasm of stomach, unspecified; B95.61 Methicillin susceptible Staphylococcus aureus infection as the cause of diseases classified elsewhere; B96.89 Other specified bacterial agents as the cause of diseases classified elsewhere; D50.9 Iron deficiency anemia, unspecified; D70.9 Neutropenia, unspecified; E11.9 Type 2 diabetes mellitus without complications; E78.5 Hyperlipidemia, unspecified; G89.3 Neoplasm related pain (acute) (chronic); I10 Essential (primary) hypertension; I25.10 Atherosclerotic heart disease of native coronary artery without angina pectoris; Z96.641 Presence of right artificial hip joint; K59.00 Constipation, unspecified; E86.0 Dehydration; D63.8 Anemia in other chronic diseases classified elsewhere; Z79.82 Long term (current) use of aspirin; I25.2 Old myocardial infarction; Z79.84 Long term (current) use of oral hypoglycemic drugs; Z80.0 Family history of malignant neoplasm of digestive organs; Z80.1 Family history of malignant neoplasm of trachea, bronchus and lung; Z87.891 Personal history of nicotine dependence; Z88.0 Allergy status to penicillin; Z92.21 Personal history of antineoplastic chemotherapy; Z95.1 Presence of aortocoronary bypass graft; Z91.041 Radiographic dye allergy status
CPT/HCPCS: 36415; 49083; 71046; 71275; 76705; 78306; 80048; 80053; 80061; 80202; 81001; 82272; 82550; 82553; 82728; 83036; 83540; 83550; 83605; 83690; 83735; 84484; 85025; 85045; 85610; 85730; 87040; 87070; 87077; 87186; 87205; 87252; 87498; 87502; 87529; 87634; 87798; 89050; 93005; 94760; 96365; 96375; 99285

== ENCOUNTER → 2018-06-01 | Outpatient (CLI) | payer MEDICARE ==
--- NOTE | 2018-06-02 16:42 | PE ---
EXAMINATION TYPE: PET CT fusion skull to thigh DATE OF EXAM: 06/01/2018 COMPARISON: CT abdomen and pelvis December 14, 2017. CTA chest March 03, 2018. Prior PET/CT January. HISTORY: Stomach cancer progress study completed chemotherapy earlier this month. TECHNIQUE: Following the intravenous administration of 12.11 mCi of F-18 FDG, whole body images are performed from the skull base to the midthigh. Images are reviewed on the computer in the coronal, a xial, and sagittal planes. Reconstructed rotating images are created on independent workstation and reviewed on the computer. A noncontrast CT is performed in conjunction with the PET scan. SCAN: Subsequent Scan FINDINGS: SKULL BASE AND NECK: No new areas of suspicious hypermetabolic uptake are present. CHEST, MEDIASTINUM, AND HILAR REGION: Small bilateral pleural effusions are essentially resolved. The re is dependent atelectasis in both lower lobes most prominent in the bases near diaphragm. No new ar eas of hypermetabolic uptake are present. ABDOMEN AND PELVIS: There is marked interval improvement in abdominal and pelvic ascites without shaniqua urable ascites identified on current study. There is marked interval improvement in peritoneal implan ts just below right hemidiaphragm without suspicious residual soft tissue or hypermetabolic uptake id entified on current study. Scattered hypermetabolic irregular peritoneal deposits anteriorly througho ut the right and left abdomen are not clearly identified on current study. No suspicious residual hyp ermetabolic adenopathy is identified. No new areas of hypermetabolic uptake are present. No suspiciou s hypermetabolic uptake is seen at level of stomach on current study. OSSEOUS STRUCTURES: No new suspicious hypermetabolic uptake is present. OTHER CT: There is mild to moderate calcified plaque bilateral carotid bulbs, right greater than left redemonst rated. Post CABG changes with mediastinal clips and sternal wires is again seen. Moderate left atrial dilata tion is redemonstrated. There is new left internal jugular Mediport catheter terminating in proximal SVC. Previously visualized scattered lung nodules are not clearly seen on current study. Largest nodule is seen in left lower lobe on prior study is not clearly appreciated. Numerous calcified gallstones are redemonstrated dependently in the gallbladder. Thin partially calci fied rim laterally in the spleen axial image 141 is redemonstrated. There is severe calcified plaque of aorta extending into branch vessels. There is prominent diverticu losis in the left and sigmoid colon. Mild to moderate multilevel spurring in the spine is present. Pr ostate gland is upper limits of normal in size. IMPRESSION: Marked positive treatment response without residual suspicious masses or hypermetabolic l esions. Resolution of ascites and effusions also noted.
== END ==
LOC: RADPETMAIN 09:48
PROVIDERS: ATTEND Internal Medicine Hematology & Oncology
DX: C16.2 Malignant neoplasm of body of stomach (principal)
CPT/HCPCS: 78815; A9552

== ENCOUNTER → 2018-10-05 | Outpatient (CLI) | payer MEDICARE ==
--- NOTE | 2018-10-07 14:59 | PE ---
Nuclear medicine PET/CT HISTORY: Gastric carcinoma, subsequent Patient received 13.3 mCi F-18 FDG intravenously in delayed scanning was performed from skull base to the mid thighs. Localization and attenuation correction CT scan was performed. Correlation to prior nuclear medicine PET/CT 06/01/2018 Neck and chest: There is no evident cervical, axillary, hilar, or mediastinal adenopathy. Left-sided Port-A-Cath is in place via a jugular approach and the catheter tip courses to the level of the super ior vena cava. Patient is post median sternotomy. Dense coronary artery calcifications are present. T here are interstitial changes at the lung bases. No evident lung mass. No pleural or pericardial effu rama. No suspicious hypermetabolic uptake. ABDOMEN: Gallstones fill the gallbladder. There is a gastric wall thickening however there is no asso ciated hypermetabolic uptake. No retroperitoneal adenopathy. No ascites. Uptake associated with the b owel is likely physiologic. Extensive diverticular change noted especially in the sigmoid colon. Rect um shows some questionable wall thickening however there is no associated hypermetabolic uptake. Aort a is dense. Osseous structures show no suspicious uptake. IMPRESSION: No suspicious hypermetabolic uptake.
== END | disposition home or self-care (01) ==
LOC: RADPETMAIN 07:26
PROVIDERS: ATTEND Internal Medicine Hematology & Oncology
DX: C16.2 Malignant neoplasm of body of stomach (principal); Z92.21 Personal history of antineoplastic chemotherapy
CPT/HCPCS: 78815; A9552

== ENCOUNTER → 2018-12-16 | Outpatient (CLI) | payer MEDICARE ==
--- NOTE | 2018-12-17 12:25 | ECHOF ---
Referral Reason:C16.2 Gastric cancer, Z01.818 encounter for chemo MEASUREMENTS -------- HEIGHT: 172.7 cm WEIGHT: 71.2 kg BP: RVIDd: 3.1 cm (< 3.3) IVSd: 1.3 cm (0.6 - 1.1) LVIDd: 2.2 cm (3.9 - 5.3) LVPWd: 1.4 cm (0.6 - 1.1) IVSs: 1.4 cm LVIDs: 1.7 cm LVPWs: 1.7 cm LAESV Index (A-L): 26.39 ml/m Ao Diam: 3.6 cm (2.0 - 3.7) AV Cusp: 2.4 cm (1.5 - 2.6) LA Diam: 4.0 cm (2.7 - 3.8) MV EXCURSION: 16.833 mm (> 18.000) MV EF SLOPE: 98 mm/s (70 - 150) EPSS: 1.4 cm MV E Hung: 1.00 m/s MV DecT: 224 ms MV A Hung: 0.87 m/s MV E/A Ratio: 1.15 RAP: 5.00 mmHg RVSP: 18.11 mmHg FINDINGS -------- Sinus rhythm. This was a technically adequate study. Hx of CABG The left ventricular size is normal. There is mild concentric left ventricular hypertrophy. Overa ll left ventricular systolic function is low-normal with, an EF between 50 - 55 %. The right ventricle is normal in size. Normal LA size by volume 22+/-6 ml/m2. The right atrial size is normal. Aneurysmal Interatrial septum. The aortic valve is trileaflet and appears structurally normal. There is no evidence of aortic regu rgitation. There is no evidence of aortic stenosis. There is trace mitral regurgitation. Mild tricuspid regurgitation present. There is no evidence of pulmonary hypertension. The right v entricular systolic pressure, as measured by Doppler, is 18.11mmHg. The pulmonic valve is normal. The aortic root size is normal. Normal inferior vena cava with normal inspiratory collapse consistent with estimated right atrial pre ssure of 5 mmHg. There is no pericardial effusion. CONCLUSIONS -------- 1. Sinus rhythm. 2. This was a technically adequate study. 3. The left ventricular size is normal. 4. There is mild concentric left ventricular hypertrophy. 5. Overall left ventricular systolic function is low-normal with, an EF between 50 - 55 %. 6. The right ventricle is normal in size. 7. Normal LA size by volume 22+/-6 ml/m2. 8. The right atrial size is normal. 9. Aneurysmal Interatrial septum. 10. The aortic valve is trileaflet and appears structurally normal. 11. There is no evidence of aortic regurgitation. 12. There is no evidence of aortic stenosis. 13. There is trace mitral regurgitation. 14. Mild tricuspid regurgitation present. 15. There is no evidence of pulmonary hypertension. 16. The right ventricular systolic pressure, as measured by Doppler, is 18.11mmHg. 17. The pulmonic valve is normal. 18. The aortic root size is normal. 19. Normal inferior vena cava with normal inspiratory collapse consistent with estimated right atrial pressure of 5 mmHg. 20. There is no pericardial effusion. 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
== END | disposition home or self-care (01) ==
LOC: RADECHMAIN 14:48
PROVIDERS: ATTEND Internal Medicine Hematology & Oncology
DX: Z01.818 Encounter for other preprocedural examination (principal); C16.2 Malignant neoplasm of body of stomach; I07.1 Rheumatic tricuspid insufficiency
CPT/HCPCS: 93306

== ENCOUNTER → 2019-04-04 | Outpatient (CLI) | payer MEDICARE ==
--- NOTE | 2019-04-06 13:26 | PE ---
Nuclear medicine PET/CT HISTORY: Gastric carcinoma, subsequent Patient received 12.5 mCi F-18 FDG intravenously in delayed scanning was performed from skull base to the mid thighs. Localization and attenuation correction CT scan was performed. Correlation to prior nuclear medicine PET/CT 10/05/2018. Neck and chest: No suspicious hypermetabolic uptake. No evident cervical, supraclavicular, mediastina l, hilar, or axillary adenopathy. Coronary artery calcifications are noted. There is no pleural or pe ricardial effusion. No evident lung mass. Patient is post median sternotomy. ABDOMEN: Multiple gallstones present within the gallbladder. Bowel activity is felt likely to be phys iologic. No retroperitoneal adenopathy. Dense atherosclerotic calcifications present within the aorta . No evident liver mass. No pelvic adenopathy or free fluid. Stomach shows a stable appearance. Osseous structures show no interval change. IMPRESSION: No suspicious hypermetabolic uptake. Cholelithiasis.
== END | disposition home or self-care (01) ==
LOC: RADPETMAIN 16:29
PROVIDERS: ATTEND Internal Medicine Hematology & Oncology
DX: K80.20 Calculus of gallbladder without cholecystitis without obstruction (principal); C16.2 Malignant neoplasm of body of stomach
CPT/HCPCS: 78815; A9552

== ENCOUNTER → 2019-04-13 | Outpatient (CLI) | payer MEDICARE ==
--- NOTE | 2019-04-13 09:44 | MR ---
EXAMINATION TYPE: MR brain wo/w con DATE OF EXAM: 04/13/2019 9:14 AM COMPARISON: NONE HISTORY: Gastric cancer / Blurred vision TECHNIQUE: Multiplanar, multiecho imaging of the brain was obtained with and without intravenous adm inistration of 7 mL intravenous Gadavist. FINDINGS: Midline structures are unremarkable. There is a normal craniocervical junction. Echoplanar diffusion imaging is normal. There are normal vascular flow voids. The orbits are unremarkable. There is no evidence of a CP angle mass lesion. There is no focal lesion, mass effect or midline shift identified. I do not see evidence of intracran ial blood. Following intravenous administration of gadolinium, I do not see evidence of abnormal enhancement. IMPRESSION: NORMAL MRI OF THE BRAIN.
== END | disposition home or self-care (01) ==
LOC: RADMRIMAIN 08:26
PROVIDERS: ATTEND Internal Medicine Hematology & Oncology
DX: C16.2 Malignant neoplasm of body of stomach (principal); H53.8 Other visual disturbances
CPT/HCPCS: 70553

== ENCOUNTER → 2019-07-15 | Outpatient (CLI) | payer MEDICARE ==
--- NOTE | 2019-07-15 15:28 | XR ---
EXAMINATION TYPE: XR chest 2V DATE OF EXAM: 07/15/2019 COMPARISON: Prior chest x-ray 03/03/2018 HISTORY: Cough TECHNIQUE: Frontal and lateral views of the chest are obtained. FINDINGS: Patient is post median sternotomy. Left-sided jugular Port-A-Cath shows the distal tip ove rlying superior vena cava. Strand-like densities at the lung bases are again noted and may reflect sc arring. No pneumothorax or pleural effusion. Heart is unchanged. Aorta is dense. IMPRESSION: No acute cardiopulmonary process. Findings are similar to prior exam. Interstitial lung disease.
== END | disposition home or self-care (01) ==
LOC: RADXRMAIN 09:07
PROVIDERS: ATTEND Internal Medicine
DX: C16.2 Malignant neoplasm of body of stomach (principal); J84.9 Interstitial pulmonary disease, unspecified
CPT/HCPCS: 71046

== ENCOUNTER → 2019-08-05 | Outpatient (CLI) | payer MEDICARE ==
--- NOTE | 2019-08-05 14:57 | CT ---
EXAMINATION TYPE: CT abdomen pelvis wo con DATE OF EXAM: 08/05/2019 COMPARISON: HISTORY: Stomach cancer; Abdominal pain CT DLP: 898 mGycm Automated exposure control for dose reduction was used. TECHNIQUE: Helical acquisition of images from the lung bases through the pelvis. Patient received or al contrast only. FINDINGS: Lack of intravenous contrast could compromise sensitivity. There is abnormal soft tissue present on axial image #40 which appears somewhat masslike within the m esenteric fat. Gastric wall thickening is indeterminate and could be due to lack of distention LUNG BASES: Bibasilar effusions are present left greater than right. Interstitial changes are present at the lung bases. Patient is post median sternotomy. There are dense coronary artery calcifications . AORTA: No significant abnormality is appreciated. LIVER/GB: Liver shows a nodular contour, correlate for possible cirrhosis, gallbladder is filled with stones. PANCREAS: No significant abnormality is seen. SPLEEN: No significant interval change is seen, small crescentic calcification at the lateral aspect is again noted. ADRENALS: No significant abnormality is seen. KIDNEYS: No significant abnormality is seen. REPRODUCTIVE ORGANS: No significant abnormality is seen. URINARY BLADDER: No significant abnormality is seen. BOWEL: Diverticular changes associated with the sigmoid colon, there is colonic wall thickening at t his level, difficult to exclude mucosal lesion. FREE AIR: No Free Air is visible. ASCITES: Large amount of ascites is present. PELVIC ADENOPATHY: None visualized. RETROPERITONEAL ADENOPATHY: No Retroperitoneal Adenopathy visible. OSSEOUS STRUCTURES: No significant abnormality is seen. IMPRESSION: ASCITES, DIFFICULT TO EXCLUDE OMENTAL CAKING, NONCONTRAST EXAM AND ADDITIONAL FINDINGS ABOVE.
== END | disposition home or self-care (01) ==
LOC: RADCTMAIN 14:18
PROVIDERS: ATTEND Internal Medicine Hematology & Oncology
DX: Z03.89 Encounter for observation for other suspected diseases and conditions ruled out (principal); C16.2 Malignant neoplasm of body of stomach; R18.8 Other ascites; Z91.048 Other nonmedicinal substance allergy status
CPT/HCPCS: 74176

== ENCOUNTER 2019-08-12 07:31 | Day surgery (SDC) | payer MEDICARE ==
[2019-08-12 08:26] VITALS: RESP 20; TEMP 97.4
[2019-08-12 08:52] LABS: Mean Platelet Volume 8.2; Platelet Count 279 k/uL (150-450)
[2019-08-12 08:59] LABS: Prothrombin Time 10.3 sec (9.0-12.0)
[2019-08-12 10:55] VITALS: BP 114/55; PULSE 65
--- NOTE | 2019-08-12 14:11 | US ---
EXAMINATION TYPE: US paracentesis abd w/image DATE OF EXAM: 08/12/2019 COMPARISON: NONE HISTORY: Ascites. PROCEDURE: Maximal barrier technique was utilized. The skin overlying a suitable pocket of fluid was localized with ultrasound and the overlying skin was prepped and draped. Ultrasound was utilized with sterile technique. Lidocaine was used for local anesthesia and a skin mabel made with a scalpel. Catheter was advanced under direct ultrasound guidance into a suitable pocket of fluid and approximately 4.9 liter s of serous fluid were removed. Catheter was withdrawn and hemostasis achieved. There is no immedia te complication; the patient is discharged in stable condition. IMPRESSION: STATUS POST ULTRASOUND GUIDED PARACENTESIS FOR PALLIATION OF ASCITES. THIS PROCEDURE WA S PERFORMED BY THE UNDERSIGNED.
[2019-08-12 15:02] LABS: Appearance,BF Hazy; Color,BF Yellow; Nucleated Cells, Body Fluid 260 /uL; RBC, Body Fluid 565 /uL
[2019-08-12 15:06] LABS: Mononuclear WBC,Body Fluid 96 %; Polynuclear WBC,Body Fluid 4 %; Total Cells Counted,Body Fluid 100
[2019-08-12 21:20] LABS: Total Protein, Body Fluid 4200 mg/dL
== END 2019-08-12 11:14 | disposition home or self-care (01) ==
LOC: RADPROMAIN 07:31
PROVIDERS: ATTEND Internal Medicine Hematology & Oncology
DX: R18.8 Other ascites (principal); C78.6 Secondary malignant neoplasm of retroperitoneum and peritoneum; C16.2 Malignant neoplasm of body of stomach
CPT/HCPCS: 36415; 49083; 82947; 84157; 85049; 85610; 87070; 87075; 87205; 88108; 88305; 88341; 88342; 89050

== ENCOUNTER 2019-09-08 12:14 | Day surgery (SDC) | payer MEDICARE ==
[2019-09-08 12:51] LABS: Mean Platelet Volume 8.2; Platelet Count 338 k/uL (150-450)
[2019-09-08 12:53] VITALS: TEMP 97.7
[2019-09-08 12:59] LABS: INR 1.1 (<1.2); Prothrombin Time 11.1 sec (9.0-12.0)
[2019-09-08 14:23] VITALS: RESP 16
[2019-09-08 14:53] VITALS: BP 98/57; PULSE 65
--- NOTE | 2019-09-08 15:25 | US ---
EXAMINATION TYPE: US paracentesis abd w/image DATE OF EXAM: 09/08/2019 COMPARISON: NONE HISTORY: Ascites. PROCEDURE: Maximal barrier technique was utilized. The skin overlying a suitable pocket of fluid was localized with ultrasound and the overlying skin was prepped and draped. Ultrasound was utilized with sterile technique. Lidocaine was used for local anesthesia and a skin mabel made with a scalpel. Catheter was advanced under direct ultrasound guidance into a suitable pocket of fluid and approximately 4.1 liter s of serous fluid were removed. Catheter was withdrawn and hemostasis achieved. There is no immedia te complication; the patient is discharged in stable condition. IMPRESSION: STATUS POST ULTRASOUND GUIDED PARACENTESIS FOR PALLIATION OF ASCITES. THIS PROCEDURE WA S PERFORMED BY THE UNDERSIGNED.
== END 2019-09-08 14:54 | disposition home or self-care (01) ==
LOC: RADPROMAIN 12:14
PROVIDERS: ATTEND Internal Medicine Hematology & Oncology
DX: R18.8 Other ascites (principal); C16.9 Malignant neoplasm of stomach, unspecified
CPT/HCPCS: 36415; 49083; 82947; 85049; 85610

== ENCOUNTER → 2019-12-05 | Outpatient (CLI) | payer MEDICARE ==
--- NOTE | 2019-12-05 15:37 | PE ---
Nuclear medicine PET/CT HISTORY: Gastric carcinoma, subsequent Patient received 9.9 mCi F-18 FDG intravenously in delayed scanning was performed from the skull base to the mid thighs. Localization and attenuation correction CT scan was performed. Correlation to prior CT abdomen pelvis 08/05/2019, prior PET/CT 04/04/2019. Neck and chest: There is no evident cervical or supraclavicular adenopathy. There is a left jugular c entral venous catheter coursing into the superior vena cava, port is in the left pectoral region. Pat ient is post median sternotomy, there are coronary artery calcifications. Small bilateral pleural eff usions are present. There is a soft tissue density present at the right costophrenic angle measuring approximately 2.5 cm in AP dimension extending to the pleura. There is some mild uptake present, SUV only 2.3. ABDOMEN: There is a large gallstone present, multiple gallstones present. No evident gallbladder wall thickening. No retroperitoneal adenopathy. Bowel uptake is likely physiologic, there is extensive di verticular change in the sigmoid colon. Aorta is dense, there are calcifications within the mariano. No hypermetabolic uptake associated with the stomach. Previously questioned area of increased attenuati on within the mesenteric fat is no longer seen, the ascites has resolved. Osseous structures show no suspicious uptake. IMPRESSION: Indeterminate mild uptake in the right costophrenic angle level, follow-up recommended.
== END | disposition home or self-care (01) ==
LOC: RADPETMAIN 07:35
PROVIDERS: ATTEND Internal Medicine Hematology & Oncology
DX: C16.2 Malignant neoplasm of body of stomach (principal)
CPT/HCPCS: 78815; A9552

== ENCOUNTER → 2020-03-05 | Outpatient (CLI) | payer MEDICARE ==
--- NOTE | 2020-03-05 17:22 | CT ---
EXAMINATION TYPE: CT abdomen pelvis wo con DATE OF EXAM: 03/05/2020 COMPARISON: PET/CT 12/05/2019 HISTORY: Stomach cancer CT DLP: 396.60 mGycm Automated exposure control for dose reduction was used. TECHNIQUE: Helical acquisition of images was performed from the lung bases through the pelvis. CONTRAST: Performed with Oral Contrast and without intravenous contrast. FINDINGS: LUNG BASES: Right middle lobe basilar lung mass measures 3.4 x 3.1 cm (4:7), increased in size previo usly measuring 2.5 x 1.9 cm on 12/05/[address] comparison. Interstitial coarsening of the bilateral lung bases and bronchiectasis. Trace bilateral pleural effusions. LIVER: Normal attenuation and size. BILIARY SYSTEM: The gallbladder is essentially filled with cholelithiasis. No intrahepatic or extrahe patic biliary ductal dilatation. PANCREAS: No peripancreatic stranding or fluid collection. SPLEEN: Not enlarged. ADRENALS: Normal. KIDNEYS: No hydronephrosis or urolithiasis. BOWEL: No obstruction. Borderline mild thickening diffusely. Colonic diverticulosis. No acute divert iculitis. PERITONEUM: Loosely mildly hazy mesentery. No pneumoperitoneum. There is trace fluid within the bila teral paracolic gutters and pelvis, which is mildly increased versus 12/05/2019. LYMPH NODES: No lymphadenopathy. PELVIS: Normal. VASCULATURE: No abdominal aortic aneurysm. Heavily calcified atherosclerotic disease. MUSCULOSKELETAL: No aggressive osseous destructive lesions. Degenerative changes of the spine. IMPRESSION: 1. Right middle lobe 3.4 cm lung mass is increased in size versus 12/05/[address] comparison, corre sponding with mild uptake on PET CT, and likely representing metastatic disease. 2. Trace abdominal pelvic free fluid, hazy appearance of the mesentery, and borderline diffuse bowel wall thickening which may represent serosal metastatic disease. 3. Cholelithiasis.
== END | disposition home or self-care (01) ==
LOC: RADCTMAIN 12:36
PROVIDERS: ATTEND Internal Medicine Hematology & Oncology
DX: K80.20 Calculus of gallbladder without cholecystitis without obstruction (principal); C16.2 Malignant neoplasm of body of stomach; Z88.0 Allergy status to penicillin; Z91.048 Other nonmedicinal substance allergy status
CPT/HCPCS: 74176

== ENCOUNTER → 2020-03-13 | Outpatient (CLI) | payer MEDICARE ==
--- NOTE | 2020-03-15 07:20 | PE ---
EXAMINATION TYPE: PET CT fusion skull to thigh DATE OF EXAM: 03/13/2020 COMPARISON: CT abdomen and pelvis March 05, 2020. Prior PET/CT December 05, 2019 and older studies. HISTORY: History of gastric cancer 2018 completed chemotherapy 2019. With recent abnormal CT. TECHNIQUE: Following the intravenous administration of 11.77 mCi of F-18 FDG, whole body images are performed from the skull base to the midthigh. Images are reviewed on the computer in the coronal, a xial, and sagittal planes. Reconstructed rotating images are created on independent workstation and reviewed on the computer. A noncontrast CT is performed in conjunction with the PET scan. SCAN: Subsequent Scan FINDINGS: SKULL BASE AND NECK: No new areas of suspicious hypermetabolic uptake. CHEST, MEDIASTINUM, AND HILAR REGION: Small bilateral pleural effusions increased in size from most r ecent CT. Increasing size right peripheral nodule or nodular consolidation redemonstrated measuring 2 .7 x 2.4 cm axial image 105, max SUV is 3.66. No additional areas of suspicious hypermetabolic uptake in the thorax. ABDOMEN AND PELVIS: Normal excretion is seen. Nonspecific distal bowel uptake left and sigmoid colon. No new suspicious hypermetabolic uptake. OSSEOUS STRUCTURES: No new suspicious hypermetabolic uptake. OTHER CT: Stable left internal jugular Mediport catheter. Post CABG changes with mediastinal clips and sternal wires is redemonstrated. Low lung volumes and ca rdiomegaly again seen. Multiple calcified gallstones filling gallbladder lumen again seen. Severe calcified plaque distal ab dominal aorta redemonstrated. Prominent left and sigmoid colonic diverticulosis again seen. Some remn ant or oral contrast from recent CT noted. IMPRESSION: Increasing size peripheral right basilar nodule or nodular consolidation shows some hyper metabolic uptake, neoplastic etiology cannot be excluded. Consider CT guided sampling.
== END | disposition home or self-care (01) ==
LOC: RADPETMAIN 07:15
PROVIDERS: ATTEND Internal Medicine Hematology & Oncology
DX: C16.2 Malignant neoplasm of body of stomach (principal)
CPT/HCPCS: 78815; A9552

== ENCOUNTER → 2020-03-22 | Day surgery (SDC) | payer MEDICARE ==
[2020-03-22 09:32] VITALS: TEMP 97.6
[2020-03-22 09:36] LABS: INR 1.1 (<1.2); Mean Platelet Volume 7.6; Platelet Count 221 k/uL (150-450); Prothrombin Time 10.8 sec (9.0-12.0)
--- NOTE | 2020-03-22 11:22 | XR ---
EXAMINATION TYPE: XR chest 1V portable DATE OF EXAM: 03/22/2020 COMPARISON: Prior chest x-ray 07/15/2019, CT scan of the chest 03/22/2020 HISTORY: Status post right lung biopsy TECHNIQUE: Single frontal view of the chest is obtained. FINDINGS: Soft tissue mass in the right lower lobe is noted. Minimal local pneumothorax noted at sit e of biopsy in the right lower chest laterally. No evident effusion. No other significant interval ch katharina. IMPRESSION: Minimal local pneumothorax at site of patient's biopsy.
[2020-03-22 11:47] VITALS: RESP 20
[2020-03-22 12:13] VITALS: PULSE 64
--- NOTE | 2020-03-22 12:26 | CT ---
EXAMINATION TYPE: CT biopsy lung RT DATE OF EXAM: 03/22/2020 HISTORY: Right lung mass COMPARISON: PET/CT 03/13/2020 Maximal barrier technique was utilized, hand hygiene obtained with soap and water. The skin overlyin g a suitable path to the lesion was localized using CT and the overlying skin was prepped and draped. Lidocaine used for local anesthesia. A skin mabel made with a scalpel. Using CT guidance, access w as gained to the lesion with a 20-gauge core needle by a 19-gauge side. Core specimen submitted to c ytology. Following the procedure minimal local pneumothorax, minimal hemoptysis noted by the patient . The patient is discharged in stable condition to observation. Hemostasis achieved. IMPRESSION: SUCCESSFUL CT GUIDED CORE BIOPSY right lower lobe lung mass. PATHOLOGY PENDING. THIS PROCEDURE WAS PERFORMED BY THE UNDERSIGNED.
--- NOTE | 2020-03-22 13:22 | XR ---
EXAMINATION TYPE: XR chest 1V portable DATE OF EXAM: 03/22/2020 COMPARISON: Prior chest x-ray 03/22/2020 HISTORY: Status post right lung biopsy TECHNIQUE: Single frontal view of the chest is obtained. FINDINGS: There has been minimal progression of patient's right-sided pneumothorax. No other signifi cant change. IMPRESSION: Small right pneumothorax
[2020-03-22 14:20] VITALS: BP 117/56
--- NOTE | 2020-03-22 14:25 | P.PN ---
Progress Note - Text Progress Note Date: 03/22/20 Discussed plan to discharge patient in light of small pneumothorax with Dr. Casanova telephonically. Patient informed to return to [facility] if symptoms arise, and to return tomorrow regardless for chest xray in am. Patient resting comfortable in bed at the time without complaints.
--- NOTE | 2020-03-23 09:25 | XR ---
EXAMINATION TYPE: XR chest 1V DATE OF EXAM: 03/23/2020 COMPARISON: 03/22/2020 HISTORY: Post right lung biopsy TECHNIQUE: Single frontal view of the chest is obtained. FINDINGS: Mediport catheter seen with the right lower lobe lung mass. Postsurgical changes are seen. There is a small right-sided pneumothorax similar to the prior exam. Hyperinflation suggests COPD. IMPRESSION: 1. Stable right-sided small pneumothorax. 2. Right lower lobe lung mass.
== END ==
LOC: RADPROMAIN 08:30
PROVIDERS: ATTEND Internal Medicine Hematology & Oncology
DX: C78.01 Secondary malignant neoplasm of right lung (principal); C16.9 Malignant neoplasm of stomach, unspecified; Z88.0 Allergy status to penicillin; Z91.048 Other nonmedicinal substance allergy status
CPT/HCPCS: 71045; 77012; 82947; 85049; 85610; 88305; 88341; 88342

== ENCOUNTER → 2020-03-23 | Outpatient (CLI) | payer MEDICARE | END | disposition home or self-care (01) | LOC: RADXRMAIN 08:41 | PROVIDERS: ATTEND Radiology Diagnostic Radiology | DX: Z53.9 Procedure and treatment not carried out, unspecified reason (principal) ==

== ENCOUNTER → 2020-07-22 | Outpatient (CLI) | payer MEDICARE ==
--- NOTE | 2020-07-22 10:15 | CT ---
"EXAMINATION TYPE: CT chest wo con DATE OF EXAM: 07/22/2020 COMPARISON: Head CT March 13, 2020 HISTORY: Lung nodule, stomach CA CT DLP: 508 mGycm. Automated Exposure Control for Dose Reduction was Utilized. TECHNIQUE: CT scan of the thorax is performed without IV contrast. FINDINGS: LUNGS: [id number] sized bilateral pleural effusions are increased in size from prior CT. Backg round moderate chronic emphysematous and pulmonary fibrotic changes redemonstrated greatest anteriorl y. Worsening peripheral right middle lobe mass now measuring 4.8 x 4.1 cm axial image 32. Possible 6 mm developing right lower lobe peripheral nodule image 41. Possible new 5 mm posterior left lower lob e superior nodule axial image 27. New 9 mm nodular nodular consolidation left lung laterally axial im age 28. Possible new 6 mm peripheral nodule right upper lobectomy 20. Additional scattered suspicious subpleural roughly 5 mm nodules or nodular consolidation for reference upper lung axial image 17. MEDIASTINUM: Lack of IV contrast is noted to limit evaluation for mediastinal and especially hilar ad enopathy. There are no definitive new greater than 1 cm hilar or mediastinal lymph nodes. No cardio megaly or pericardial effusion is seen. Post-CABG changes with mediastinal clips and sternal wires re demonstrated. OTHER: Numerous calcified gallstones filled gallbladder redemonstrated. Some adjacent pericholecystic fluid extends anteriorly. Additional mild ascites surrounding liver and spleen. There is lytic lesio n involving the T12 vertebra posterior inferior aspect extending into the lateral recess with interva l progression, effacement of the left anterolateral thecal sac now present axial image 54. New mild c ompression type fracture of L1 level involving superior endplate. IMPRESSION: Worsening metastatic disease with enlarging right middle lobe mass. Suggestion of develop ing subcentimeter nodules which should be followed with caution. Worsening pleural effusions and new intra-abdominal ascites. New lytic lesion T12 vertebra invading the anterolateral spinal canal. Consi vicky MRI assessment. A Yellow level critical message alert has been initiated for Leeroy Casanova MD via the [employer] 0 | Critical Results System on 07/22/2020 10:10 AM. This message alert has been sent to Leeroy Casanova MD via the preferences provided by the clinician for the receipt of Radiology Critical Findings. [facility] ID [id number]."
== END | disposition home or self-care (01) ==
LOC: RADCTMAIN 08:45
PROVIDERS: ATTEND Internal Medicine Hematology & Oncology
DX: C78.01 Secondary malignant neoplasm of right lung (principal); J90 Pleural effusion, not elsewhere classified; C16.2 Malignant neoplasm of body of stomach; Z88.0 Allergy status to penicillin; Z91.048 Other nonmedicinal substance allergy status
CPT/HCPCS: 71250

== ENCOUNTER → 2020-09-14 | Outpatient (CLI) | payer MEDICARE ==
--- NOTE | 2020-09-15 04:41 | MR ---
EXAMINATION TYPE: MR brain wo/w con DATE OF EXAM: 09/14/2020 COMPARISON: 04/13/2019 HISTORY: 70-year-old male R41.89, cognitive changes, history of stomach cancer, extraocular movement. TECHNIQUE: Multiplanar, multisequence images of the brain and brainstem were acquired before and aft er administration of 6.5 mL IV Gadavist. Diffusion weighted imaging is performed. FINDINGS: No evidence for acute infarction, hemorrhage, mass, mass effect, midline shift, herniation, effacemen t of basal cisterns, or extra-axial fluid collection. There is mild generalized supratentorial volume loss compatible with age-related atrophy. No hydrocep halus. T2/FLAIR weighted sequences show slight increase in mild periventricular white white matter change al korey with a couple left periatrial punctate foci measuring up to 4 mm. Major intracranial flow voids are intact. Midline structures demonstrate normal morphology. The craniocervical junction is normal. Post contrast images demonstrate no evidence of pathologic enhancement. Dural venous sinuses are pat ent. [id number] mucosal thickening throughout the paranasal sinuses. Globes appear intact. IMPRESSION: 1. No acute intracranial abnormality seen. No enhancing intracranial lesions to suggest brain metasta ses. 2. Interval slight increase in mild burden of periventricular bright white matter change typical of c hronic small vessel ischemic disease. Age-related mild cerebral atrophy. 3. Mild to moderate chronic pansinus disease.
== END | disposition home or self-care (01) ==
LOC: RADMRIMAIN 11:40
PROVIDERS: ATTEND Internal Medicine Hematology & Oncology
DX: I67.82 Cerebral ischemia (principal); G31.1 Senile degeneration of brain, not elsewhere classified; H05.822 Myopathy of extraocular muscles, left orbit; C16.2 Malignant neoplasm of body of stomach; R41.89 Other symptoms and signs involving cognitive functions and awareness; J34.9 Unspecified disorder of nose and nasal sinuses
CPT/HCPCS: 70553; A9585

== ENCOUNTER → 2020-09-29 | Outpatient (CLI) | payer MEDICARE ==
[2020-09-29 11:07] LABS: African American GFR (CKD) >90 (>60 ml/min/1.73 sqM); Blood Urea Nitrogen 40 mg/dL (9-20); Non-African American GFR(CKD) >90 (>60 ml/min/1.73 sqM)
--- NOTE | 2020-09-29 13:08 | CT ---
EXAMINATION TYPE: CT ChestAbdPelvis w con DATE OF EXAM: 09/29/2020 COMPARISON: Chest CT July 22, 2020. Prior PET/CT March 13, 2020 and older studies. HISTORY: Stomach cancer CT DLP: 742.40 mGycm. Automated Exposure Control for Dose Reduction was Utilized. CONTRAST: CT scan of the thorax, abdomen and pelvis is performed with IV Contrast, patient injected with 100 ml mL of Isovue 300. FINDINGS: LUNGS:. Moderate size pleural effusions show continued increase in size from more recent studies. Ass ociated compressive atelectasis. Worsening reticulonodular opacities bilaterally. There is no pneum othorax seen. Worsening right basilar mass or less likely masslike consolidation measuring 7.2 x 5.4 cm axial image 33. Mass strongly favored given most recent PET/CT finding. New 1.1 cm nodule or nodul ar consolidation left lung base axial image 29. MEDIASTINUM: There are no new greater than 1 cm hilar or mediastinal lymph nodes. Stable prominent bu t subcentimeter right hilar lymph nodes. No cardiomegaly or pericardial effusion is seen. Post-CABG changes with mediastinal clips and sternal wires redemonstrated. OTHER: Stable left internal jugular Mediport catheter terminating in proximal SVC. LIVER/GB: Numerous calcified stones filling gallbladder. Mild ascites surrounding liver PANCREAS: No significant abnormality is seen. SPLEEN: Mild ascites surrounding spleen. ADRENALS: No significant abnormality is seen. KIDNEYS: No significant abnormality is seen. BOWEL: Oral contrast reaches level of the rectum. No suspicious small or large bowel dilatation. Dive rticula about the sigmoid colon. No CT evidence for acute diverticulitis. GENITAL ORGANS: No gross abnormality seen. LYMPH NODES: No greater than 1cm abdominal or pelvic lymph nodes are appreciated. OSSEOUS STRUCTURES: Persistent destructive lesion left T12 posterior vertebra extending into the pedi hudson. Some new surrounding sclerosis. No new osseous lesions clearly seen.. OTHER: Slightly more prominent small to moderate amount of free fluid in cul-de-sac image 108. Possib le Bilateral scrotal fluid collections partially imaged. Moderate subcutaneous edema or soft tissue a nasarca laterally over the abdomen on current study. Severe calcified plaque of the aorta extends into branch vessels. Suspect complete occlusion distal a bdominal aorta coronal image 37 with some reconstitution in the external iliac artery branches. Moderate diffuse subcutaneous edema and soft tissue anasarca anteriorly over the pelvis. IMPRESSION: 1. Worsening anterior right lower lung mass or metastatic disease. Reticulonodular interstitial nolasco es bilaterally in the lungs suggest possible lymphangitic spread of neoplasm. Moderate-sized bilatera l pleural effusions show continued interval progression. More prominent soft tissue anasarca and pel rocael ascites. No recurrent peritoneal carcinomatosis clearly seen. Osseous metastatic lesion left T12 level redemonstrated. No new definitive osseous metastatic disease. 2. 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 Some reconstitution in the internal/external iliac arteries noted. Correlat e clinically for lower extremity claudication.
== END | disposition home or self-care (01) ==
LOC: RADPROMAIN 09:59
PROVIDERS: ATTEND Internal Medicine Hematology & Oncology
DX: J98.4 Other disorders of lung (principal); J90 Pleural effusion, not elsewhere classified; R18.8 Other ascites; I70.0 Atherosclerosis of aorta; C16.2 Malignant neoplasm of body of stomach; Z88.0 Allergy status to penicillin; Z88.3 Allergy status to other anti-infective agents; Z91.048 Other nonmedicinal substance allergy status
CPT/HCPCS: 82565; 84520; 71260; 74177; J1642; Q9967

== ENCOUNTER 2020-10-11 06:35 | Observation (INO) | payer MEDICARE ==
--- NOTE | 2020-10-11 07:15 | ED ---
General Adult HPI - General Source: patient, family, EMS, RN notes reviewed Mode of arrival: EMS Limitations: physical limitation <Caleb Campuzano - Last Filed: 10/11/20 08:21> <David Corrales - Last Filed: 10/11/20 08:25> - General Chief complaint: Shortness of Breath Stated complaint: Altered Mental Status Time Seen by Provider: 10/11/20 06:41 - History of Present Illness Initial comments: This a 70-year-old male presents emergency Department via EMS chief complaint of confusion. Patient's had multiple bouts of confusion throughout the night is found to have his oxygen off and which is oxygen dependent secondary to recurrent cancer. Patient has gastric cancer which is now metastasized primarily to lung, back. Family member in the room states that they also increase his pain meds to 2 Tylenol with codeine every 8 hours and which he gets very drowsy, slight confusion from. Patient has no specific complaints. Patient does have leg swelling which is been chronic over the last couple months. Patient does take Lasix. No abdominal complaints. Patient states he does feel better family member states that his orientation is much improved at this time. (Caleb Campuzano) - Related Data Home Medications Medication Instructions Recorded Confirmed Aspirin 325 mg PO DAILY 04/15/15 03/22/20 Atorvastatin Calcium [Lipitor] 40 mg PO W/SUPPER 04/15/15 03/22/20 Enalapril Maleate [Vasotec] 5 mg PO W/SUPPER 04/15/15 03/22/20 Vitamin B Complex 1 cap PO DAILY 04/15/15 03/22/20 atenoloL [Tenormin] 50 mg PO BID 04/15/15 03/22/20 amLODIPine [Norvasc] 5 mg PO QAM 12/18/17 03/22/20 Isosorbide Mononitrate ER [Imdur] 30 mg PO BID 12/20/17 03/22/20 Ascorbic Acid [Vitamin C] 500 mg PO DAILY 03/04/18 03/22/20 metFORMIN HCL ER [Glucophage Xr] 500 mg PO AC-BID 03/04/18 03/22/20 Capecitabine [Xeloda] 150 mg PO DAILY 09/04/19 03/22/20 Capecitabine [Xeloda] 500 mg PO DAILY 03/19/20 10/05/20 Previous Rx's Medication Instructions Recorded Acetaminophen Tab [Tylenol] 650 mg PO Q6HR PRN tab 03/08/18 Allergies Allergy/AdvReac Type Severity Reaction Status Date / Time Iodine and Iodide Containing Allergy Rash/Hives Verified 10/11/20 06:59 Produc mold Allergy per Verified 10/11/20 06:59 allergy testing Penicillins Allergy Unknown Verified 10/11/20 06:59 Childhood Review of Systems ROS Other: All systems not noted in ROS Statement are negative. <Caleb Campuzano - Last Filed: 10/11/20 08:21> ROS Other: All systems not noted in ROS Statement are negative. <David Corrales - Last Filed: 10/11/20 08:25> ROS Statement: Those systems with pertinent positive or pertinent negative responses have been documented in the HPI. Past Medical History Past Medical History: Coronary Artery Disease (CAD), Cancer, Chest Pain / Angina, Diabetes Mellitus, Hyperlipidemia, Hypertension, Myocardial Infarction ([place]), Vascular Disorder Additional Past Medical History / Comment(s): Stomach cancer. Pet scan done showing lung mass Last Myocardial Infarction Date:: 1992 History of Any Multi-Drug Resistant Organisms: None Reported Past Surgical History: Coronary Bypass/CABG, Heart Catheterization Additional Past Surgical History / Comment(s): CABG 1992, per pt 5 quarts drained from abdomen with paracentesis 12/20/17, drained again 02/07/18, and 08/12 2019. EGD, colonoscopy, lymph node removed from left side of neck. Past Anesthesia/Blood Transfusion Reactions: No Reported Reaction Past Psychological History: No Psychological Hx Reported Smoking Status: Former smoker Past Alcohol Use History: Occasional Past Drug Use History: None Reported - Past Family History Father Family Medical History: Cancer Additional Family Medical History / Comment(s): Lung cancer <Caleb Campuzano - Last Filed: 10/11/20 08:21> General Exam Limitations: physical limitation General appearance: alert, in no apparent distress Head exam: Present: atraumatic, normocephalic, normal inspection Eye exam: Present: normal appearance, PERRL, EOMI. Absent: scleral icterus, conjunctival injection, periorbital swelling ENT exam: Present: normal exam, mucous membranes moist, other (Nasal cannula in place) Neck exam: Present: normal inspection, full ROM. Absent: tenderness, meningismus, lymphadenopathy Respiratory exam: Present: decreased breath sounds. Absent: normal lung sounds bilaterally, respiratory distress, wheezes, rales, rhonchi, stridor Cardiovascular Exam: Present: regular rate, normal rhythm, normal heart sounds. Absent: systolic murmur, diastolic murmur, rubs, gallop, clicks GI/Abdominal exam: Present: soft, normal bowel sounds. Absent: distended, tenderness, guarding, rebound, rigid Extremities exam: Present: pedal edema (2+) Neurological exam: Present: alert, oriented X3 Skin exam: Present: warm, dry, intact, normal color. Absent: rash <Caleb Campuzano - Last Filed: 10/11/20 08:21> Course <David Corrales - Last Filed: 10/11/20 08:25> Vital Signs 10/11/20 10/11/20 06:49 07:00 Temperature 97.4 F L Pulse Rate 78 Respiratory 18 18 Rate Blood Pressure 101/66 O2 Sat by Pulse 89 L Oximetry - Reevaluation(s) Reevaluation #1: 10/11/20 08:25 PA supervision: I did personally evaluate this case patient did present with complaints as confusion does have a history of lung cancer that initially started as gastric cancer with known metastatic disease. Upon arrival he was found have some dyspnea decreased breath sounds noted. X-ray showed evidence of increased pulmonary vascular markings and evidence of pleural effusion. Patient will be admitted. I do agree with the assessment and plan (David Corrales) EKG Findings - EKG Comments: EKG Findings:: EKG performed at 6:56 sinus rhythm with first-degree block rate of 76 [place] to 36 QRS 80 QT/QTC 354/398 - EKG Results: EKG: interpreted by ERMD <Caleb Campuzano - Last Filed: 10/11/20 08:21> Medical Decision Making - Lab Data Result diagrams: 10/11/20 07:23 10/11/20 07:23 <Caleb Campuzano - Last Filed: 10/11/20 08:21> - Lab Data Result diagrams: 10/11/20 07:23 10/11/20 07:23 <David Corrales - Last Filed: 10/11/20 08:25> - Medical Decision Making 70-year-old presented for shortness of breath. Patient symptoms have been worsening along with secondary hypoxia. Patient found to have pulmonary edema, pleural effusions. BNP is elevated. Patient will be given Lasix, if her CHF. (Caleb Campuzano) - Lab Data Lab Results 10/11/20 10/11/20 10/11/20 Range/Units 07:23 07:23 07:23 WBC 8.9 (3.8-10.6) k/uL RBC 3.49 L (4.30-5.90) m/uL Hgb 11.3 L (13.0-17.5) gm/dL Hct 33.9 L (39.0-53.0) % MCV 97.2 (80.0-100.0) fL MCH 32.4 (25.0-35.0) pg MCHC 33.4 (31.0-37.0) g/dL RDW 15.6 H (11.5-15.5) % Plt Count 212 (150-450) k/uL MPV 8.1 Neutrophils % 87 % Lymphocytes % 5 % Monocytes % 6 % Eosinophils % 1 % Basophils % 0 % Neutrophils # 7.7 (1.3-7.7) k/uL Lymphocytes # 0.4 L (1.0-4.8) k/uL Monocytes # 0.5 (0-1.0) k/uL Eosinophils # 0.1 (0-0.7) k/uL Basophils # 0.0 (0-0.2) k/uL Poikilocytosis Slight PT 9.3 (9.0-12.0) sec INR 0.8 (<1.2) APTT 21.0 L (22.0-30.0) sec Sodium 133 L (137-145) mmol/L Potassium 5.4 H (3.5-5.1) mmol/L Chloride 97 L (98-107) mmol/L Carbon Dioxide 34 H (22-30) mmol/L Anion Gap 2 mmol/L BUN 47 H (9-20) mg/dL Creatinine 1.03 (0.66-1.25) mg/dL Est GFR (CKD-EPI)AfAm 84 (>60 ml/min/1.73 sqM) Est GFR (CKD-EPI)NonAf 73 (>60 ml/min/1.73 sqM) Glucose 158 H (74-99) mg/dL Plasma Lactic Acid Ken (0.7-2.0) mmol/L Calcium 8.7 (8.4-10.2) mg/dL Magnesium 2.0 (1.6-2.3) mg/dL Total Bilirubin 1.2 (0.2-1.3) mg/dL AST 26 (17-59) U/L ALT 31 (4-49) U/L Alkaline Phosphatase 151 H (38-126) U/L Troponin I (0.000-0.034) ng/mL NT-Pro-B Natriuret Pep pg/mL Total Protein 5.4 L (6.3-8.2) g/dL Albumin 2.9 L (3.5-5.0) g/dL 10/11/20 10/11/20 10/11/20 Range/Units 07:23 07:23 07:23 WBC (3.8-10.6) k/uL RBC (4.30-5.90) m/uL Hgb (13.0-17.5) gm/dL Hct (39.0-53.0) % MCV (80.0-100.0) fL MCH (25.0-35.0) pg MCHC (31.0-37.0) g/dL RDW (11.5-15.5) % Plt Count (150-450) k/uL MPV Neutrophils % % Lymphocytes % % Monocytes % % Eosinophils % % Basophils % % Neutrophils # (1.3-7.7) k/uL Lymphocytes # (1.0-4.8) k/uL Monocytes # (0-1.0) k/uL Eosinophils # (0-0.7) k/uL Basophils # (0-0.2) k/uL Poikilocytosis PT (9.0-12.0) sec INR (<1.2) APTT (22.0-30.0) sec Sodium (137-145) mmol/L Potassium (3.5-5.1) mmol/L Chloride (98-107) mmol/L Carbon Dioxide (22-30) mmol/L Anion Gap mmol/L BUN (9-20) mg/dL Creatinine (0.66-1.25) mg/dL Est GFR (CKD-EPI)AfAm (>60 ml/min/1.73 sqM) Est GFR (CKD-EPI)NonAf (>60 ml/min/1.73 sqM) Glucose (74-99) mg/dL Plasma Lactic Acid Ken 1.1 (0.7-2.0) mmol/L Calcium (8.4-10.2) mg/dL Magnesium (1.6-2.3) mg/dL Total Bilirubin (0.2-1.3) mg/dL AST (17-59) U/L ALT (4-49) U/L Alkaline Phosphatase (38-126) U/L Troponin I <0.012 (0.000-0.034) ng/mL NT-Pro-B Natriuret Pep 1040 pg/mL Total Protein (6.3-8.2) g/dL Albumin (3.5-5.0) g/dL Disposition <Caleb Campuzano - Last Filed: 10/11/20 08:21> <David Corrales - Last Filed: 10/11/20 08:25> Clinical Impression: Acute CHF, Pleural effusion, Confusion, Hypoxia, Metastatic cancer Disposition: ADMITTED IP TO THIS HOSP Condition: Fair Referrals: Fabian Sorto MD [Primary Care Provider] - 1-2 days
[2020-10-11 07:34] LABS: Basophils % (A) 0 %; Eosinophils # (A) 0.1 k/uL (0-0.7); Eosinophils % (A) 1 %; HCT 33.9 % (39.0-53.0); HGB 11.3 gm/dL (13.0-17.5); Lymphocytes # (A) 0.4 k/uL (1.0-4.8); Lymphocytes % (A) 5 %; MCH 32.4 pg (25.0-35.0); MCHC 33.4 g/dL (31.0-37.0); MCV 97.2 fL (80.0-100.0); Mean Platelet Volume 8.1; Monocytes # (A) 0.5 k/uL (0-1.0); Monocytes % (A) 6 %; Neutrophils # (A) 7.7 k/uL (1.3-7.7); Neutrophils % (A) 87 %; Platelet Count 212 k/uL (150-450); Poikilocytosis Slight; RBC 3.49 m/uL (4.30-5.90); RDW 15.6 % (11.5-15.5); WBC 8.9 k/uL (3.8-10.6)
[2020-10-11 07:49] LABS: INR 0.8 (<1.2); Prothrombin Time 9.3 sec (9.0-12.0)
[2020-10-11 08:00] LABS: Albumin 2.9 g/dL (3.5-5.0); Calcium 8.7 mg/dL (8.4-10.2); Potassium 5.4 mmol/L (3.5-5.1); Total Bilirubin 1.2 mg/dL (0.2-1.3); Total Protein 5.4 g/dL (6.3-8.2)
--- NOTE | 2020-10-11 08:02 | XR ---
EXAMINATION TYPE: XR chest 2V DATE OF EXAM: 10/11/2020 COMPARISON: CT 12 days ago and older studies. HISTORY: History of metastatic stomach cancer with difficulty breathing TECHNIQUE: Frontal and lateral views of the chest are obtained. FINDINGS: Stable left internal jugular Mediport catheter. Overlying sternal wires and mediastinal cli ps. Cardiac silhouette size stable and within normal limits. Worsening reticular interstitial changes bilaterally and bilateral lower lung opacities. Poor visualization of known right anterior mass. Mul tilevel spurring of thoracic spine redemonstrated. IMPRESSION: Suspect moderate bilateral pleural effusions increased from prior study. Suspect moderat e bilateral interstitial edema and/or even possibly lymphangitic spread of neoplasm.
[2020-10-11] MEDS ORDERED: FUROSEMIDE 10 MG/ML 4 ML VIAL IV STA (08:21)
[2020-10-11] MEDS ORDERED: Acetaminophen-Codeine 300-30mg TAB PO STA (08:59)
--- NOTE | 2020-10-11 10:00 | P.HPIM ---
History of Present Illness H&P Date: 10/11/20 Chief Complaint: Worsening weakness This is a 70-year-old male with very complex past medical history significant for metastatic gastric adenocarcinoma that presented to the emergency room with worsening confusion and progressive weakness. Patient is very hard of hearing and was unable to provide any meaningful history. His sister at bedside who reside with him provided much of the story. She said that over the last month that she moved in with him from [place] to help him out patient is being getting progressively worse. He is more weak and unable to do much of the activities he used to do. Now he needs assistance with transferring and feeding. Over the last couple of days patient was getting more confused and last night he was moving his oxygen and does not comply with his sister when she has had to put the oxygen back on. She noted that his lower extremity edema is also worsening. She brought her to the emergency room for further evaluation. Of note, patient had a computed tomography scan of the body 10 days ago showing evidence of worsening right lower lung mass/metastatic disease with diffuse anasarca. Patient was started on IV Lasix and will be admitted to the hospital for further evaluation. Review of Systems Review of system: 14 points review of systems were obtained and were negative except to what were mentioned in the HPI. Past Medical History Past Medical History: Coronary Artery Disease (CAD), Cancer, Chest Pain / Angina, Diabetes Mellitus, Hyperlipidemia, Hypertension, Myocardial Infarction ([place]), Vascular Disorder Additional Past Medical History / Comment(s): Stomach cancer. Pet scan done showing lung mass Last Myocardial Infarction Date:: 1992 History of Any Multi-Drug Resistant Organisms: None Reported Past Surgical History: Coronary Bypass/CABG, Heart Catheterization Additional Past Surgical History / Comment(s): CABG 1992, per pt 5 quarts drained from abdomen with paracentesis 12/20/17, drained again 02/07/18, and 08/12 2019. EGD, colonoscopy, lymph node removed from left side of neck. Past Anesthesia/Blood Transfusion Reactions: No Reported Reaction Past Psychological History: No Psychological Hx Reported Smoking Status: Former smoker Past Alcohol Use History: Occasional Past Drug Use History: None Reported - Past Family History Father Family Medical History: Cancer Additional Family Medical History / Comment(s): Lung cancer Medications and Allergies Home Medications Medication Instructions Recorded Confirmed Type Aspirin 325 mg PO DAILY 04/15/15 10/11/20 History Atorvastatin Calcium [Lipitor] 40 mg PO W/SUPPER 04/15/15 10/11/20 History Enalapril Maleate [Vasotec] 5 mg PO W/SUPPER 04/15/15 10/11/20 History amLODIPine [Norvasc] 5 mg PO QAM 12/18/17 10/11/20 History Isosorbide Mononitrate ER [Imdur] 60 mg PO QAM 12/20/17 10/11/20 History metFORMIN HCL ER [Glucophage Xr] 500 mg PO AC-BID 03/04/18 10/11/20 History Acetaminophen with Codeine 1 tab PO Q8H 10/11/20 10/11/20 History [Tylenol w/Codeine #4 Tablet] Atenolol [Tenormin] 75 mg PO BID 10/11/20 10/11/20 History Furosemide [Lasix] 20 mg PO AC-BID 10/11/20 10/11/20 History Isosorbide Mononitrate ER [Imdur] 30 mg PO HS 10/11/20 10/11/20 History Nitroglycerin Sl Tabs [Nitrostat] 0.4 mg SUBLINGUAL Q5M PRN 10/11/20 10/11/20 History dronabinoL [Dronabinol] 5 mg PO AC-BID 10/11/20 10/11/20 History Allergies Allergy/AdvReac Type Severity Reaction Status Date / Time Iodine and Iodide Containing Allergy Rash/Hives Verified 10/11/20 08:52 Produc mold Allergy per Verified 10/11/20 08:52 allergy testing Penicillins Allergy Unknown Verified 10/11/20 08:52 Childhood Physical Exam Vitals: Vital Signs Temp Pulse Resp BP Pulse Ox 10/11/20 08:36 81 16 101/66 97 10/11/20 07:00 18 10/11/20 06:49 97.4 F L 78 18 101/66 89 L Intake and Output 10/10/20 10/11/20 10/11/20 22:59 06:59 14:59 Output Total 300 Balance -300 Output: Urine 300 Other: # Voids 1 Weight 70.76 kg General: The patient is awake and alert, in no distress Eye: there is normal conjunctiva bilaterally. Neck: The neck is supple, there is no JVD. Cardiovascular: Normal S1-S2, no S3-S4, no murmurs. Respiratory: Lungs clear to auscultation bilaterally Gastrointestinal: Abdomen is slightly distended with evidence of ascites Musculoskeletal: There is +3 pitting edema up to the mid thigh Neurological:. Speech is normal. Skin: Skin is warm and dry Results CBC & Chem 7: 10/11/20 07:23 10/11/20 07:23 Labs: Abnormal Lab Results - Last 24 Hours (Table) 10/11/20 10/11/20 10/11/20 Range/Units 07:23 07:23 07:23 RBC 3.49 L (4.30-5.90) m/uL Hgb 11.3 L (13.0-17.5) gm/dL Hct 33.9 L (39.0-53.0) % RDW 15.6 H (11.5-15.5) % Lymphocytes # 0.4 L (1.0-4.8) k/uL APTT 21.0 L (22.0-30.0) sec Sodium 133 L (137-145) mmol/L Potassium 5.4 H (3.5-5.1) mmol/L Chloride 97 L (98-107) mmol/L Carbon Dioxide 34 H (22-30) mmol/L BUN 47 H (9-20) mg/dL Glucose 158 H (74-99) mg/dL Alkaline Phosphatase 151 H (38-126) U/L Total Protein 5.4 L (6.3-8.2) g/dL Albumin 2.9 L (3.5-5.0) g/dL Assessment and Plan Assessment: This is a 70-year-old male with very complex past medical history significant for metastatic gastric adenocarcinoma that presented to the emergency room with worsening weakness and confusion. Patient was evaluated in the ER and will be admitted to the hospital for further management of his medical problems noted below. 1. Metabolic encephalopathy, his mentation is very hard to assess as he is very hard of hearing and we are unable to communicate with him. There is also some electrolyte derangement. I would check urinalysis to rule out underlying UTI. Brain MRI done on September 15 showed no acute findings or evidence of metastasis. 2. Diffuse anasarca with bilateral pleural effusion, probably secondary to underlying malignancy and hypo-albuminuria. Doubt heart failure. Started on IV Lasix 40 mg twice daily. 3. History of metastatic gastric adenocarcinoma: With metastatic disease to the lung and spine. Patient received chemoradiation therapy in the past. He is currently off any chemotherapy. Oncology consulted for further evaluation. 4. Mild to moderate ascites, I consulted IR for ultrasound-guided paracentesis 5. Chronic hypoxic respiratory failure on home O2 6. Essential hypertension: Blood pressure on the lower side. Continue home medication with enalapril and atenolol and hold amlodipine for now. Amlodipine can also contribute to worsening lower extremity edema. We probably need to be discontinued 7. Moderate to severe protein malnutrition, I would order ensure 3 times a day. Consult dietitian for further evaluation. 8. Physical debility, PT/OT consulted 9. CODE STATUS: Patient would like to be full code. This was discussed with him and his sister at bedside Today, I reviewed his medication list and lab work results. I ordered a bladder scan to rule out urine retention. Continue treatment as above. Repeat lab work in the morning. Appreciate storage management consultant's recommendations.
[2020-10-11 11:09] LABS: Appearance,Urine Clear (Clear); Bilirubin,Urine Negative (Negative); Blood,Urine Negative (Negative); Color,Urine Light Yellow; Glucose,Urine (UA) Negative (Negative); Ketones,Urine Negative (Negative); Leukocyte Esterase,Urine Negative (Negative); Nitrite,Urine Negative (Negative); Protein,Urine Negative (Negative); Urobilinogen,Urine <2.0 mg/dL (<2.0)
--- NOTE | 2020-10-11 13:25 | P.CRDCN ---
History of Present Illness History of present illness: HISTORY OF PRESENTING ILLNESS This is a pleasant 70-year-old male past medical history significant for coronary artery disease s/p CABG, metastatic gastric adenocarcinoma, hypertension, Type 2 Diabetes, Dyslpidema, former smoker. He follows in the office with Dr. Gray. We have been asked to see in consultation for congestive heart failure. Patient is seen and examined in the emergency department, family at bedside. At home, patient with worsening confusion, weakness, shortness of breath, and worsening bilateral lower extremity edema. Patient is very hard of hearing. Over the last week patient has been more confused and progressive weakness unable to do activities at home like he used to. His sister decided to bring him to the emergency department. Patient does wear oxygen at home. CT chest 09/29/20 revealed evidence of worsening right lower lung mass/metastatic disease, moderate-sized bilateral pleural effusions, more prominent soft tissue anasarca and pelvic ascites, Severe atherosclerotic change with complete occlusion in the distal abdominal aorta into common iliac arteries bilaterally. Laboratory data reviewed, BNP 1040, troponin negative 1, UA negative, viral PCR negative, sodium 133, potassium 5.4, serum creatinine 1.3, magnesium 2.0, albumin 2.9, total protein 5.4. Patient presented emergency department hypoxic 89% on 2 L nasal cannula DIAGNOSTICS Most recent Echo in the office 06/24/2019- EF 50%, there is hypokinesis in the septum at the base, hypokinesis inferior wall at the base, mild MR, mild TR Most recent cardiac catheterization- 04/2015- total occlusion of RCA and total occlusion of mid LAD and circumflex. Vein graft of the RCA is totally occluded, Vein graft to the cirumflex is patent and MORRISON to LAD is patent. Filling pressures are normal and EF is normal. EKG reveals sinus rhythm, heart rate 76, first-degree AV block T-wave inversions in V2 and V3, prior EKG with similar findings Chest xray moderate bilateral pleural effusions increased from prior study. Suspect moderate bilateral interstitial edema and/or even possibly lymphangitic spread of neoplasm. Current home cardiac medications include Lasix 20 mg twice a day, Imdur 30 mg nightly, Imdur 60 mg in the morning, atorvastatin 40 mg nightly atenolol 75 mg twice a day, aspirin 325 mg daily, amlodipine 5 mg daily, enalapril 5 mg nightly REVIEW OF SYSTEMS At the time of my exam: CONSTITUTIONAL: +weakness Denies fever or chills. CARDIOVASCULAR: +shortness of breath, +lower extremity edema. Denies chest pain, orthopnea, PND or palpitations. RESPIRATORY: Denies cough. GASTROINTESTINAL: Denies abdominal pain, diarrhea, constipation, nausea or vomiting. MUSCULOSKELETAL: Denies myalgias. NEUROLOGIC: Denies numbness, tingling, headacbe or weakness. ENDOCRINE: +fatigue. Denies weight change, polydipsia or polyurina. GENITOURINARY: Denies burning, hematuria or urgency with micturation. HEMATOLOGIC: Denies history of anemia or bleeding. PHYSICAL EXAMINATION Vital signs blood pressure 99/60, heart rate 75, afebrile, maintaining oxygen saturation 96% on 3 L nasal cannula CONSTITUTIONAL: Frail HEENT: Head is normocephalic. Pupils are equal, round. No JVD. No carotid bruit. CHEST EXAMINATION: Lungs with decreased breath sounds to auscultation. No chest wall tenderness is noted on palpation or with deep breathing. HEART EXAMINATION: Regular rate and rhythm. S1, S2 heard. systolic murmur noted No, gallops or rub. ABDOMEN: Soft, nontender. Positive bowel sounds. EXTREMITIES: 2+ peripheral pulses, 4+ bilateral lower extremity edema. NEUROLOGIC EXAMINATION: Patient is awake, alert and oriented x3. ASSESSMENT Worsening lower extremity edema- will repeat Echocardiogram. Albumin is low. A major component of this is third spacing from protein calorie malnutrition. Shortness of breath Coronary artery disease s/p coronary artery bypass graft Occlusion of aorta Type 2 Diabetes History Hypertension- currently hypotensive on admission Dyslipidemia Former Tobacco dependence PLAN -Obtain 2D echocardiogram to assess cardiac structure and function -Continue IV Lasix 40mg BID -Continue home cardiac medication- Imdur 60 mg in the morning, atorvastatin 40 mg nightly atenolol 75 mg twice a day, aspirin 81mg daily -Monitor renal function and electrolytes -Heart Healthy Diet, I/Os, Daily Weights -Further recommendations based on clinical course Nurse Practitioner note has been reviewed, I agree with a documented findings and plan of care. Patient was seen and examined. Past Medical History Past Medical History: Coronary Artery Disease (CAD), Cancer, Chest Pain / Angina, Diabetes Mellitus, Hyperlipidemia, Hypertension, Myocardial Infarction ([place]), Vascular Disorder Additional Past Medical History / Comment(s): Stomach cancer. Pet scan done showing lung mass Last Myocardial Infarction Date:: 1992 History of Any Multi-Drug Resistant Organisms: None Reported Past Surgical History: Coronary Bypass/CABG, Heart Catheterization Additional Past Surgical History / Comment(s): CABG 1992, per pt 5 quarts drained from abdomen with paracentesis 12/20/17, drained again 02/07/18, and 08/12 2019. EGD, colonoscopy, lymph node removed from left side of neck. Past Anesthesia/Blood Transfusion Reactions: No Reported Reaction Past Psychological History: No Psychological Hx Reported Smoking Status: Former smoker Past Alcohol Use History: Occasional Past Drug Use History: None Reported - Past Family History Father Family Medical History: Cancer Additional Family Medical History / Comment(s): Lung cancer Medications and Allergies Home Medications Medication Instructions Recorded Confirmed Type Aspirin 325 mg PO DAILY 04/15/15 10/11/20 History Atorvastatin Calcium [Lipitor] 40 mg PO W/SUPPER 04/15/15 10/11/20 History Enalapril Maleate [Vasotec] 5 mg PO W/SUPPER 04/15/15 10/11/20 History amLODIPine [Norvasc] 5 mg PO QAM 12/18/17 10/11/20 History Isosorbide Mononitrate ER [Imdur] 60 mg PO QAM 12/20/17 10/11/20 History metFORMIN HCL ER [Glucophage Xr] 500 mg PO AC-BID 03/04/18 10/11/20 History Acetaminophen with Codeine 1 tab PO Q8H 10/11/20 10/11/20 History [Tylenol w/Codeine #4 Tablet] Atenolol [Tenormin] 75 mg PO BID 10/11/20 10/11/20 History Furosemide [Lasix] 20 mg PO AC-BID 10/11/20 10/11/20 History Isosorbide Mononitrate ER [Imdur] 30 mg PO HS 10/11/20 10/11/20 History Nitroglycerin Sl Tabs [Nitrostat] 0.4 mg SUBLINGUAL Q5M PRN 10/11/20 10/11/20 History dronabinoL [Dronabinol] 5 mg PO AC-BID 10/11/20 10/11/20 History Allergies Allergy/AdvReac Type Severity Reaction Status Date / Time Iodine and Iodide Containing Allergy Rash/Hives Verified 10/11/20 08:52 Produc mold Allergy per Verified 10/11/20 08:52 allergy testing Penicillins Allergy Unknown Verified 10/11/20 08:52 Childhood Physical Exam Vitals: Vital Signs Temp Pulse Resp BP Pulse Ox 10/11/20 11:17 98.2 F 75 18 99/60 96 10/11/20 08:36 81 16 117/67 97 10/11/20 07:00 18 10/11/20 06:49 97.4 F L 78 18 101/66 89 L Intake and Output 10/10/20 10/11/20 10/11/20 22:59 06:59 14:59 Output Total 600 Balance -600 Output: Urine 600 Other: # Voids 1 Weight 70.76 kg Results 10/11/20 07:23 10/11/20 07:23 Cardiac Enzymes 10/11/20 10/11/20 Range/Units 07:23 07:23 AST 26 (17-59) U/L Troponin I <0.012 (0.000-0.034) ng/mL Coagulation 10/11/20 Range/Units 07:23 PT 9.3 (9.0-12.0) sec APTT 21.0 L (22.0-30.0) sec CBC 10/11/20 Range/Units 07:23 WBC 8.9 (3.8-10.6) k/uL RBC 3.49 L (4.30-5.90) m/uL Hgb 11.3 L (13.0-17.5) gm/dL Hct 33.9 L (39.0-53.0) % Plt Count 212 (150-450) k/uL Comprehensive Metabolic Panel 10/11/20 Range/Units 07:23 Sodium 133 L (137-145) mmol/L Potassium 5.4 H (3.5-5.1) mmol/L Chloride 97 L (98-107) mmol/L Carbon Dioxide 34 H (22-30) mmol/L BUN 47 H (9-20) mg/dL Creatinine 1.03 (0.66-1.25) mg/dL Glucose 158 H (74-99) mg/dL Calcium 8.7 (8.4-10.2) mg/dL AST 26 (17-59) U/L ALT 31 (4-49) U/L Alkaline Phosphatase 151 H (38-126) U/L Total Protein 5.4 L (6.3-8.2) g/dL Albumin 2.9 L (3.5-5.0) g/dL Current Medications Generic Name Dose Route Start Last Admin Trade Name Freq PRN Reason Stop Dose Admin Acetaminophen/Codeine Phosphate 1 each 10/11/20 09:45 Acetaminophen-Codeine 300-30mg Tab PO Q8H PRN Pain Aspirin 325 mg 10/12/20 09:00 Aspirin 325 Mg Tab PO DAILY DELILAH Atenolol 75 mg 10/11/20 21:00 Atenolol 25 Mg Tab PO BID DELILAH Atorvastatin Calcium 40 mg 10/11/20 17:30 Atorvastatin 40 Mg Tab PO W/SUPPER DELILAH Dronabinol 5 mg 10/11/20 17:30 Dronabinol 2.5 Mg Cap PO AC-BID DELILAH Furosemide 40 mg 10/11/20 21:00 Furosemide 10 Mg/Ml 4 Ml Vial IV Q12H DELILAH Isosorbide Mononitrate 60 mg 10/12/20 09:00 Isosorbide Mononitrate Er 60 Mg Tab.Er.24h PO QAM DELILAH Lisinopril 10 mg 10/11/20 17:30 Lisinopril 10 Mg Tab PO W/SUPPER DELILAH Tamsulosin HCl 0.4 mg 10/11/20 18:30 Tamsulosin 0.4 Mg Cap.Er.24h PO PC-SUPPER DELILAH Intake and Output 10/10/20 10/11/20 10/11/20 22:59 06:59 14:59 Output Total 600 Balance -600 Output: Urine 600 Other: # Voids 1 Weight 70.76 kg 10/11/20 07:23 10/11/20 07:23
--- NOTE | 2020-10-11 14:54 | P.CONS ---
History of Present Illness - Reason for Consult Consult date: 10/11/20 Progressive Metastatic Cancer Requesting physician: Caleb Campuzano - Chief Complaint sob - History of Present Illness Mayco is a patient well known to our practice, primary oncologist Dr. Leeroy Casanova. He originally presented to Dr Camacho, his PCP with "stomach" distention for 3-4 months without abdominal pain, U/S of abdomen and then CT Scan revealed large amount of ascites (12/14/17) as well as omental caking and peritoneal nodules. He had US-Guided paracentesis on 12/20/2017 > felt much better > Cytology negative. The patient reported progressive anorexia and weight loss of 20-25 LBS. He had Colonoscopy/EGD by Dr Zach Quinonez on 01/11/18 , no pathology identified in Colon, thickened gastric wall identified in body and antrum of stomach, biopsy revealed " at least intramucosal Adenocarcinoma". He smoked 1 PPD till 1992 (Quit when diagnosed with CAD), has PVD in lower extremities with intermitent claudication and stable CAD. He denies ETOH use. 02/15/18: C/O abdominal distention & pain. Donell repeated Paracentesis (Cytology + for metastatic Adenocarcinoma C/W gastric primary. PET Scan revealed diffused peritoneal carcinomatosis. [id number]- negative. 03/21/18: was hospitalized with Staph septicemia> was seen & treated by Dr Cervantes. Had recent paracentesis. No abdominal pain. 04/17/18: Feels well, stronger, no abdominal pain or further abdominal distention, no N/V. Began FOLFOX chemotherapy well. In May 2018 - PET Scan revealed complete response without any residual activities indicating excellent response to FOLFOX Chemotherapy. In September 2018 - He completed 12 cycles of FOLFOX Chemotherapy, follow up PET Scan> PETER On 08/15/19: C/O abdominal distention. Paracentesis done : Metastatic Adenocarcinoma. CT Scan: ascites and omental disease. CEA normal. Started on On Xeloda 1800mg Bid 1 week on 1 week off In February 2020 - CT Scan: Enlarging RML lesion? now 3.4 cm. - Progression of Disease noted with Positive Pathology Consistent with Gastric Cancer from bx of RML lesion. Stop Xeloda, will initiate Ramucirumab. 07/27/20: C/O fatigue & back pain, CT Scan : Definite progression with Lytic lesion at T12. 09/13/20-Pt here for f/u after being in [place] for a prolonged stay. He was seen in ER 09/03/20 with c/o of progressive BLE swelling, pain in right foot and SOB. CXR showed fluid overloead, 2D echo showed preserved EF with grade I diastolic d ysfunction. Doppler was neg for DVT, pt refused CT. He left ER with lasix and O2. At Last visit in office was seen by Lori Gutierrez NP - 10/04/20-Family present and available on phone to discuss recent CT results. Pt is on 3L O2, no recent changes in O2 needs. Denies SOB, FUENTES. Pt in w/c, BLE swelling is mod/severe, it did get a little better with the lasix. He is able to get to bathroom by himself, he can make himself an uncomplicated meal. No pain to report Unfortunetley recent CT CAP, increasing bilateral pleural effusions, enlarging Rt lung mass, worsening reticularnodular opacities concerning for lymphangitic spread of disease. Clinically pt has worsening swelling in the legs, appears very weak. All of the findings are consistent with worsening disease. Pt was asked what he would like to do/what his goals are. At this time he wants to pursue treatment. He does understand that treatment intent is palliative- to reduce symptoms of cancer for some time. He is aware that treatment has side effects and may make him feel worse. Recommended palliative care, they have agree to the same. Review of Systems ROS unobtainable: due to mental status Past Medical History Past Medical History: Coronary Artery Disease (CAD), Cancer, Chest Pain / Angina, Diabetes Mellitus, Hyperlipidemia, Hypertension, Myocardial Infarction ([place]), Vascular Disorder Additional Past Medical History / Comment(s): Stomach cancer. Pet scan done showing lung mass Last Myocardial Infarction Date:: 1992 History of Any Multi-Drug Resistant Organisms: None Reported Past Surgical History: Coronary Bypass/CABG, Heart Catheterization Additional Past Surgical History / Comment(s): CABG 1992, per pt 5 quarts drained from abdomen with paracentesis 12/20/17, drained again 02/07/18, and 08/12 2019. EGD, colonoscopy, lymph node removed from left side of neck. Past Anesthesia/Blood Transfusion Reactions: No Reported Reaction Past Psychological History: No Psychological Hx Reported Smoking Status: Former smoker Past Alcohol Use History: Occasional Past Drug Use History: None Reported - Past Family History Father Family Medical History: Cancer Additional Family Medical History / Comment(s): Lung cancer Medications and Allergies Home Medications Medication Instructions Recorded Confirmed Type Aspirin 325 mg PO DAILY 04/15/15 10/11/20 History Atorvastatin Calcium [Lipitor] 40 mg PO W/SUPPER 04/15/15 10/11/20 History Enalapril Maleate [Vasotec] 5 mg PO W/SUPPER 04/15/15 10/11/20 History amLODIPine [Norvasc] 5 mg PO QAM 12/18/17 10/11/20 History Isosorbide Mononitrate ER [Imdur] 60 mg PO QAM 12/20/17 10/11/20 History metFORMIN HCL ER [Glucophage Xr] 500 mg PO AC-BID 03/04/18 10/11/20 History Acetaminophen with Codeine 1 tab PO Q8H 10/11/20 10/11/20 History [Tylenol w/Codeine #4 Tablet] Atenolol [Tenormin] 75 mg PO BID 10/11/20 10/11/20 History Furosemide [Lasix] 20 mg PO AC-BID 10/11/20 10/11/20 History Isosorbide Mononitrate ER [Imdur] 30 mg PO HS 10/11/20 10/11/20 History Nitroglycerin Sl Tabs [Nitrostat] 0.4 mg SUBLINGUAL Q5M PRN 10/11/20 10/11/20 History dronabinoL [Dronabinol] 5 mg PO AC-BID 10/11/20 10/11/20 History Allergies Allergy/AdvReac Type Severity Reaction Status Date / Time Iodine and Iodide Containing Allergy Rash/Hives Verified 10/11/20 08:52 Produc mold Allergy per Verified 10/11/20 08:52 allergy testing Penicillins Allergy Unknown Verified 10/11/20 08:52 Childhood Physical Exam Vitals: Vital Signs Temp Pulse Resp BP Pulse Ox 10/11/20 11:17 98.2 F 75 18 99/60 96 10/11/20 08:36 81 16 117/67 97 10/11/20 07:00 18 10/11/20 06:49 97.4 F L 78 18 101/66 89 L Intake and Output 10/10/20 10/11/20 10/11/20 22:59 06:59 14:59 Output Total 600 Balance -600 Output: Urine 600 Other: # Voids 1 Weight 70.76 kg poor historian Very [place] Neck Supple Head NCNT Lungs: Increased effort Heart: Tachy ABdomen: Tender 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 Results CBC & Chem 7: 10/11/20 07:23 10/11/20 07:23 Labs: Abnormal Lab Results - Last 24 Hours (Table) 10/11/20 10/11/20 10/11/20 Range/Units 07:23 07:23 07:23 RBC 3.49 L (4.30-5.90) m/uL Hgb 11.3 L (13.0-17.5) gm/dL Hct 33.9 L (39.0-53.0) % RDW 15.6 H (11.5-15.5) % Lymphocytes # 0.4 L (1.0-4.8) k/uL APTT 21.0 L (22.0-30.0) sec Sodium 133 L (137-145) mmol/L Potassium 5.4 H (3.5-5.1) mmol/L Chloride 97 L (98-107) mmol/L Carbon Dioxide 34 H (22-30) mmol/L BUN 47 H (9-20) mg/dL Glucose 158 H (74-99) mg/dL Alkaline Phosphatase 151 H (38-126) U/L Total Protein 5.4 L (6.3-8.2) g/dL Albumin 2.9 L (3.5-5.0) g/dL CT scan - chest: report reviewed Assessment and Plan (1) Confusion Current Visit: Yes Status: Acute Code(s): R41.0 - DISORIENTATION, UNSPECIFIED SNOMED Code(s): 993273634 (2) Hypoxia Current Visit: Yes Status: Acute Code(s): R09.02 - HYPOXEMIA SNOMED Code(s): 763104765 (3) Metastatic cancer Current Visit: Yes Status: Acute Code(s): C79.9 - SECONDARY MALIGNANT NEOPLASM OF UNSPECIFIED SITE SNOMED Code(s): 977818590 (4) Gastric cancer Current Visit: No Status: Acute Priority: High Code(s): C16.9 - MALIGNANT NEOPLASM OF STOMACH, UNSPECIFIED SNOMED Code(s): 480746558 Plan: Overall worsening progressive disease, prognosis is poor. Discuss options of comfort care
[2020-10-11] MEDS ORDERED: methylPREDNISolone SOD SUCCI 125 MG/2 ML VIAL IV STA (15:24)
[2020-10-11] MEDS ORDERED: FAMOTIDINE 20 MG/2 ML VIAL IV STA (15:24)
[2020-10-11] MEDS ORDERED: diphenhydrAMINE 50 MG/ML 1 ML VIAL IVP STA (15:25)
[2020-10-11] MEDS: Acetaminophen-Codeine 300-30mg TAB PO PRN (17:23)
[2020-10-11] MEDS: ATORVASTATIN 40 MG TAB PO SCH (17:23)
[2020-10-11] MEDS: TAMSULOSIN 0.4 MG CAP.ER.24H PO SCH (17:28)
[2020-10-11] MEDS ORDERED: lisinopriL 10 MG TAB PO SCH (17:30)
--- NOTE | 2020-10-11 19:19 | CT ---
EXAMINATION TYPE: CT angio chest DATE OF EXAM: 10/11/2020 COMPARISON: 03/03/2018 HISTORY: Shortness of breath, CHF, hypoxia CT DLP: 290.5 mGycm Automated exposure control for dose reduction was used. CONTRAST: Performed with IV Contrast, patient injected with 68 mL of Isovue 370. There are 3-D post processed images. There are large bilateral pleural effusions. There is extensive airspace consolidation and atelectasi s in both lungs. Thoracic aorta shows some atheromatous change. There is no aneurysm or dissection. I see no evidence of filling defect in the pulmonary arteries. There are no hilar masses. I see no med iastinal adenopathy. The bony thorax is intact. IMPRESSION: No evidence of pulmonary embolism. Large pleural effusions with extensive infiltrate and atelectasis in both lungs that is worse than old exam.
[2020-10-11] MEDS: atenoloL 25 MG TAB PO SCH (22:06)
[2020-10-11] MEDS: FUROSEMIDE 10 MG/ML 4 ML VIAL IV SCH (22:06)
--- NOTE | 2020-10-12 08:01 | ECHOF ---
Referral Reason:cad MEASUREMENTS -------- HEIGHT: 172.7 cm WEIGHT: 71.2 kg BP: RVIDd: 2.2 cm (< 3.3) IVSd: 0.8 cm (0.6 - 1.1) LVIDd: 3.5 cm (3.9 - 5.3) LVPWd: 1.3 cm (0.6 - 1.1) IVSs: 1.3 cm LVIDs: 2.3 cm LVPWs: 1.0 cm LAESV Index (A-L): 14.52 ml/m Ao Diam: 3.1 cm (2.0 - 3.7) AV Cusp: 1.5 cm (1.5 - 2.6) MV EXCURSION: 17.918 mm (> 18.000) MV EF SLOPE: 57 mm/s (70 - 150) MV E Hung: 0.50 m/s MV DecT: 269 ms MV A Hung: 0.81 m/s MV E/A Ratio: 0.61 RAP: 5.00 mmHg RVSP: 26.53 mmHg FINDINGS -------- Sinus rhythm. This was a technically adequate study. LV size, wall thickness and systolic function are normal, with an EF greater than 55%. The left fortunato tricular size is normal. The diastolic filling pattern is normal for the age of the patient 7.64. The right ventricle is normal in size. Normal LA size by volume 22+/-6 ml/m2. The right atrial size is normal. There is mild aortic valve sclerosis. AOV is possible Bicuspid. The mitral valve is normal. Mild mitral regurgitation is present. The tricuspid valve appears structurally normal. Mild tricuspid regurgitation present. Right vent ricular systolic pressure is normal at < 35 mmHg. There is no pulmonic regurgitation present. The aortic root size is normal. There is no pericardial effusion. CONCLUSIONS -------- 1. LV size, wall thickness and systolic function are normal, with an EF greater than 55%. 2. Normal LA size by volume 22+/-6 ml/m2. 3. There is mild aortic valve sclerosis. 4. AOV is possible Bicuspid. 5. Mild mitral regurgitation is present. 6. Mild tricuspid regurgitation present. 7. There is no pericardial effusion. HYDROMETER CALIBRATOR: Edwina Restrepo RDCS
[2020-10-12] MEDS: atenoloL 25 MG TAB PO SCH (08:13)
[2020-10-12] MEDS: FUROSEMIDE 10 MG/ML 4 ML VIAL IV SCH ×2 (08:13→17:02)
[2020-10-12] MEDS: ASPIRIN 81 MG PO SCH (08:13)
[2020-10-12] MEDS ORDERED: ASPIRIN 325 MG TAB PO SCH (09:00)
[2020-10-12] MEDS ORDERED: ISOSORBIDE MONONITRATE ER 60 MG TAB.ER.24H PO SCH (09:00)
--- NOTE | 2020-10-12 11:05 | P.PN ---
Subjective Progress Note Date: 10/12/20 Patient was seen and evaluated by me today. He is more awake today. He does not have any complaints. Urine output not that great. He still maintained on Lasix. Objective - Vital Signs Vital signs: Vital Signs Temp 97.4 F L 10/12/20 05:00 Pulse 73 10/12/20 05:00 Resp 16 10/12/20 05:00 BP 103/62 10/12/20 05:00 Pulse Ox 95 10/12/20 05:00 Intake & Output 10/11/20 10/12/20 10/12/20 18:59 06:59 18:59 Intake Total 700 Output Total 600 400 Balance -600 300 Weight 71.8 kg Intake: Oral 700 Output: Urine 600 400 Uretheral (Patel) 400 Other: Voiding Method Indwelling Catheter Indwelling Catheter # Voids 1 - Exam General: The patient is awake and alert, in no distress Eye: there is normal conjunctiva bilaterally. Neck: The neck is supple, there is no JVD. Cardiovascular: Normal S1-S2, no S3-S4, no murmurs. Respiratory: Lungs clear to auscultation bilaterally Gastrointestinal: Abdomen is soft, nontender Musculoskeletal: There is no pedal edema. Neurological:. Speech is normal. Skin: Skin is warm and dry . There is an area of erythematous papules with vesicular rash noted on the left chest - Labs CBC & Chem 7: 10/11/20 07:23 10/11/20 07:23 Assessment and Plan Assessment: This is a 70-year-old male with very complex past medical history significant for metastatic gastric adenocarcinoma that presented to the emergency room with worsening weakness and confusion. Patient was evaluated in the ER and will be admitted to the hospital for further management of his medical problems noted below. 1. Metabolic encephalopathy, improved significantly. Urinalysis was clean. Brain MRI done on September 15 showed no acute findings or evidence of metastasis. 2. Diffuse anasarca with bilateral pleural effusion, probably secondary to underlying malignancy and hypo-albuminuria. Doubt heart failure. Started on IV Lasix 40 mg twice daily. 3. History of metastatic gastric adenocarcinoma: With metastatic disease to the lung and spine. Computed tomography scan showed progressive disease. Patient received chemoradiation therapy in the past. He is currently off any chemothera py. Oncology consulted for further evaluation. Patient is very weak and debilitated 4. Obstructive uropathy status post Patel catheter insertion on presentation. I started the patient on Flomax 0.4 mg daily 5. Herpes zoster rash on left chest, time of onset unclear. Patient has some vesicular lesions. I would start him on valacyclovir thousand milligrams twice daily then #1 for 7 days 6. Essential hypertension: Blood pressure on the lower side. Continue home medication with enalapril and atenolol and hold amlodipine. A 7. Moderate to severe protein malnutrition, I would order ensure 3 times a day. Consult dietitian for further evaluation. 8. Chronic hypoxic respiratory failure on home O2 9. Physical debility, PT/OT consulted 10. CODE STATUS: Patient would like to be full code. This was discussed with him and his sister at bedside Today, I reviewed his medication list and lab work results. Awaiting repeat lab work from this morning Initiate contact precautions secondary to shingles Had a prolonged discussion with patient regarding CODE STATUS and goals of care again today that he is more oriented. He was adamant that he would like to be a full code and explore options for treatment/palliative chemo
[2020-10-12 12:33] LABS: African American GFR (CKD) 87.4 (60.0-200.0); Anion Gap 8.1 mmol/L (4.00-12.00); Calcium 8.8 mg/dL (8.7-10.3); Carbon Dioxide 33.9 mmol/L (21.6-31.8); Non-African American GFR(CKD) 75.4 (60.0-200.0); Potassium 5.5 mmol/L (3.5-5.5)
[2020-10-12 12:35] VITALS: BMI 24.0
--- NOTE | 2020-10-12 12:37 | P.PN ---
Subjective HISTORY OF PRESENTING ILLNESS This is a pleasant 70-year-old male past medical history significant for coronary artery disease s/p CABG, metastatic gastric adenocarcinoma, hypertension, Type 2 Diabetes, Dyslpidema, former smoker. He follows in the office with Dr. Gray. We have been asked to see in consultation for congestive heart failure. Patient is seen and examined in the emergency department, family at bedside. At home, patient with worsening confusion, weakness, shortness of breath, and worsening bilateral lower extremity edema. Patient is very hard of hearing. Over the last week patient has been more confused and progressive weakness unable to do activities at home like he used to. His sister decided to bring him to the emergency department. Patient does wear oxygen at home. CT chest 09/29/20 revealed evidence of worsening right lower lung mass/metastatic disease, moderate-sized bilateral pleural effusions, more prominent soft tissue anasarca and pelvic ascites, Severe atherosclerotic change with complete occlusion in the distal abdominal aorta into common iliac arteries bilaterally. Laboratory data reviewed, BNP 1040, troponin negative 1, UA negative, viral PCR negative, sodium 133, potassium 5.4, serum creatinine 1.3, magnesium 2.0, albumin 2.9, total protein 5.4. Patient presented emergency department hypoxic 89% on 2 L nasal cannula 10/12/2020 Patient seen and evaluated in no acute distress. He continues to have ongoing shortness of breath and lower extremity edema. Blood pressure 103/62 heart rate 73 afebrile maintaining oxygen saturation on nasal cannula. Laboratory data reviewed, sodium 138, potassium 5.5, creatinine 1.0. 24-hour urine output is 1000 mL maintaining a negative fluid balance. Currently maintained on aspirin 81 mg daily, atenolol 75 mg twice a day, atorvastatin 40 mg daily, lisinopril 10 mg daily, Imdur 60 mg daily and Lasix 40 mg IV twice a day. Echocardiogram obtained reveals preserved LV systolic function with ejection fraction greater than 55% with a possible bicuspid aortic valve, mild mitral regurgitation and mild tricuspid regurgitation. PHYSICAL EXAMINATION CONSTITUTIONAL: Frail HEENT: Head is normocephalic. Pupils are equal, round. No JVD. No carotid bruit. CHEST EXAMINATION: Lungs with decreased breath sounds to auscultation. No chest wall tenderness is noted on palpation or with deep breathing. HEART EXAMINATION: Regular rate and rhythm. S1, S2 heard. systolic murmur noted No, gallops or rub. EXTREMITIES: 2+ peripheral pulses, 4+ bilateral lower extremity edema. ASSESSMENT Shortness of breath and lower extremity edema Pleural effusions Hypoalbuminemia Coronary artery disease s/p coronary artery bypass graft Diabetes mellitus Hypertension Dyslipidemia Former nicotine dependence PLAN Suspect most of fluid overload is related to protein calorie malnutrition and hypoalbuminemia. Continue IV Lasix. Follow renal function and electrolytes in the morning. Further recommendations to follow based upon clinical course Nurse Practitioner note has been reviewed, I agree with a documented findings and plan of care. Patient was seen and examined. Objective - Vital Signs Vital signs: Vital Signs Temp 97.4 F L 10/12/20 05:00 Pulse 73 10/12/20 05:00 Resp 16 10/12/20 05:00 BP 103/62 10/12/20 05:00 Pulse Ox 95 10/12/20 05:00 Intake & Output 10/11/20 10/12/20 10/12/20 18:59 06:59 18:59 Intake Total 700 Output Total 600 400 Balance -600 300 Weight 71.8 kg Intake: Oral 700 Output: Urine 600 400 Uretheral (Patel) 400 Other: Voiding Method Indwelling Catheter Indwelling Catheter # Voids 1 - Labs CBC & Chem 7: 10/11/20 07:23 10/11/20 07:23
[2020-10-12] MEDS: valACYclovir 500 MG TAB PO SCH ×2 (12:38→20:36)
[2020-10-12] MEDS: TAMSULOSIN 0.4 MG CAP.ER.24H PO SCH (16:42)
[2020-10-12] MEDS: ATORVASTATIN 40 MG TAB PO SCH (16:42)
--- NOTE | 2020-10-12 19:14 | P.PN ---
Subjective Progress Note Date: 10/12/20 Dr. Parrish seen and evaluated patient this am Objective - Vital Signs Vital signs: Vital Signs Temp 98.1 F 10/12/20 14:11 Pulse 86 10/12/20 18:20 Resp 16 10/12/20 15:27 BP 93/63 10/12/20 18:20 Pulse Ox 93 L 10/12/20 15:27 Intake & Output 10/12/20 10/12/20 10/13/20 06:59 18:59 06:59 Intake Total 700 Output Total 400 Balance 300 Weight 71.8 kg 71.8 kg Intake: Oral 700 Output: Urine 400 Uretheral (Patel) 400 Other: Voiding Method Indwelling Catheter Indwelling Catheter - Exam poor historian Very [place] Neck Supple Head NCNT Lungs: Increased effort Heart: Tachy ABdomen: Tender Ext: SUBSTANCE ABUSE RN - Labs CBC & Chem 7: 10/11/20 07:23 10/12/20 06:32 Labs: Abnormal Lab Results - Last 24 Hours (Table) 10/12/20 10/12/20 10/12/20 Range/Units 06:32 15:09 18:35 Carbon Dioxide 33.9 H (21.6-31.8) mmol/L BUN 41.0 H (9.0-27.0) mg/dL BUN/Creatinine Ratio 41.00 H (12.00-20.00) Ratio Glucose 222 H (70-110) mg/dL Plasma Lactic Acid Ken 2.8 H* 3.0 H* (0.7-2.0) mmol/L Microbiology - Last 24 Hours (Table) 10/11/20 15:54 Blood Culture - Preliminary Blood No Growth after 24 hours Assessment and Plan (1) Confusion Current Visit: Yes Status: Acute Code(s): R41.0 - DISORIENTATION, UNS PECIFIED SNOMED Code(s): 268405594 (2) Hypoxia Current Visit: Yes Status: Acute Code(s): R09.02 - HYPOXEMIA SNOMED Code(s): 722327612 (3) Metastatic cancer Current Visit: Yes Status: Acute Code(s): C79.9 - SECONDARY MALIGNANT NEOPLASM OF UNSPECIFIED SITE SNOMED Code(s): 107994151 (4) Gastric cancer Current Visit: No Status: Acute Priority: High Code(s): C16.9 - MALIGNANT NEOPLASM OF STOMACH, UNSPECIFIED SNOMED Code(s): 238429909 Plan: Overall worsening progressive disease, prognosis is poor. Discuss options of comfort care Prognosis is poor Discussed he is currently not a candidate for treatment at this time Atteempted to call sister to discuss further Physician attest: I have completed the full history and physical and agree with above dictation dictated as a scribe
[2020-10-12] MEDS: Acetaminophen-Codeine 300-30mg TAB PO PRN (20:36)
[2020-10-13 06:28] LABS: African American GFR (CKD) 45 (>60 ml/min/1.73 sqM); Anion Gap 4 mmol/L; Blood Urea Nitrogen 61 mg/dL (9-20); Calcium 8.8 mg/dL (8.4-10.2); Carbon Dioxide 34 mmol/L (22-30); Chloride 96 mmol/L (98-107); Glucose 179 mg/dL (74-99); Non-African American GFR(CKD) 39 (>60 ml/min/1.73 sqM); Potassium 5.3 mmol/L (3.5-5.1); Sodium 134 mmol/L (137-145)
[2020-10-13] MEDS: FUROSEMIDE 10 MG/ML 4 ML VIAL IV SCH (08:33)
[2020-10-13] MEDS: ASPIRIN 81 MG PO SCH (08:34)
[2020-10-13] MEDS: Acetaminophen-Codeine 300-30mg TAB PO PRN ×2 (08:34→16:49)
[2020-10-13] MEDS: valACYclovir 500 MG TAB PO SCH ×2 (08:35→20:00)
[2020-10-13] MEDS ORDERED: OLANZapine 2.5 MG TAB PO PRN (08:57)
--- NOTE | 2020-10-13 10:02 | P.PN ---
Subjective Progress Note Date: 10/13/20 Patient is doing fairly well today. He seems appropriate to me and was answering questions appropriately. Nursing staff told me that he was confused earlier today. He currently has a sitter at bedside. Blood pressure improved compared to yesterday. Objective - Vital Signs Vital signs: Vital Signs Temp 98.2 F 10/13/20 05:00 Pulse 62 10/13/20 05:00 Resp 18 10/13/20 08:00 BP 93/58 10/13/20 05:00 Pulse Ox 96 10/13/20 05:00 Intake & Output 10/12/20 10/13/20 10/13/20 18:59 06:59 18:59 Output Total 375 Balance -375 Weight 71.8 kg Output: Urine 375 Other: Voiding Method Indwelling Catheter Indwelling Catheter Indwelling Catheter # Voids 1 1 - Exam General: The patient is awake and alert, in no distress Eye: there is normal conjunctiva bilaterally. Neck: The neck is supple, there is no JVD. Cardiovascular: Normal S1-S2, no S3-S4, no murmurs. Respiratory: Lungs clear to auscultation bilaterally Gastrointestinal: Abdomen is soft, nontender Musculoskeletal: There is no pedal edema. Neurological:. Speech is normal. Skin: Skin is warm and dry . There is an area of erythematous papules with vesicular rash noted on the left chest - Labs CBC & Chem 7: 10/11/20 07:23 10/13/20 05:34 Labs: Abnormal Lab Results - Last 24 Hours (Table) 10/12/20 10/12/20 10/12/20 Range/Units 06:32 15:09 18:35 Sodium (137-145) mmol/L Potassium (3.5-5.1) mmol/L Chloride (98-107) mmol/L Carbon Dioxide 33.9 H (21.6-31.8) mmol/L BUN 41.0 H (9.0-27.0) mg/dL Creatinine (0.66-1.25) mg/dL BUN/Creatinine Ratio 41.00 H (12.00-20.00) Ratio Glucose 222 H (70-110) mg/dL Plasma Lactic Acid Ken 2.8 H* 3.0 H* (0.7-2.0) mmol/L 10/13/20 Range/Units 05:34 Sodium 134 L (137-145) mmol/L Potassium 5.3 H (3.5-5.1) mmol/L Chloride 96 L (98-107) mmol/L Carbon Dioxide 34 H (21.6-31.8) mmol/L BUN 61 H (9.0-27.0) mg/dL Creatinine 1.72 H (0.66-1.25) mg/dL BUN/Creatinine Ratio (12.00-20.00) Ratio Glucose 179 H (70-110) mg/dL Plasma Lactic Acid Ken (0.7-2.0) mmol/L Microbiology - Last 24 Hours (Table) 10/11/20 15:54 Blood Culture - Preliminary Blood No Growth after 24 hours Assessment and Plan Assessment: This is a 70-year-old male with very complex past medical history significant for metastatic gastric adenocarcinoma that presented to the emergency room with worsening weakness and confusion. Patient was evaluated in the ER and will be admitted to the hospital for further management of his medical problems noted below. 1. Metabolic encephalopathy, improved significantly. Urinalysis was clean. Brain MRI done on September 15 showed no acute findings or evidence of metastasis. 2. Diffuse anasarca with bilateral pleural effusion, probably secondary to underlying malignancy and hypo-albuminuria. Doubt heart failure. Started on IV Lasix 40 mg twice daily which will be discontinued today secondary to a KI. Seen and evaluated by cardiology. Echocardiogram showed preserved ejection fraction. 3. History of metastatic gastric adenocarcinoma: With metastatic disease to the lung and spine. Computed tomography scan showed progressive disease. Patient received chemoradiation therapy in the past. He is currently off any andres motherapy. Oncology consulted for further evaluation. Patient is very weak and debilitated 4. Obstructive uropathy status post Patel catheter insertion on presentation. I started the patient on Flomax 0.4 mg daily 5. Herpes zoster rash on left chest, time of onset unclear. Patient has some v esicular lesions. I would start him on valacyclovir thousand milligrams twice daily day #2 for 7 days 6. Essential hypertension: Blood pressure on the lower side. Home medication discontinue. We'll continue to monitor 7. Acute kidney injury, secondary to hypotension. Lasix and blood pressure medication discontinued. We'll continue to monitor closely. 8. Moderate to severe protein malnutrition, I would order ensure 3 times a day. Consult dietitian for further evaluation. 9. Acute on chronic Chronic hypoxic respiratory failure on home O2: Secondary to underlying cancer. No evidence of PE on CT angiogram 9. Physical debility, PT/OT consulted 10. CODE STATUS: Patient would like to be full code. This was discussed with him and his sister at bedside Today, I reviewed his medication list and lab work results. Continue current management. Appreciate senior energy consultant's recommendations. Oncology discussing comfort measures with patient. He is not a candidate for any further chemotherapy. I discussed CODE STATUS again with patient today and he is insisting that he wants to be a full code.
--- NOTE | 2020-10-13 14:18 | CDI ---
Documentation Clarification Form Date: 10/13/2020 01:41:53 PM From: Katiuska De La Torre Admit Date: 10/11/2020 08:24:00 AM Patient Name: Mayco Lobo Visit Number: [id number] Discharge Date: ATTENTION: The Clinical Documentation Specialists (CDI) and [facility] Coding Staff appreciate your assistance in clarifying documentation. Please respond to the clarification below the line at the bottom and electronically sign. The CDI & [facility] Coding staff will review the response and follow-up if needed. Please note: Queries are made part of the Legal Health Record. If you have any questions, please contact the author of this message via ITS. Dr. Ra Felder Moderate to severe protein Malnutrition is documented in the H&P 10/11. Additional clarification regarding the severity of malnutrition is requested. History/Risk Factors: 70-year-old male presents to the ED with worsening confusion and progressive weakness. Recent CT scan of body showed evidence of worsening right lower lung mass with metastatic disease and diffuse anasarca. Medical History: Gastric adenocarcinoma with metastatic disease to lung and spine, chronic respiratory failure and Obstructive uropathy. H&P 10/11. Clinical Indicators: Gastric adenocarcinoma with metastatic cancer to lung and spine. Abdomen is slightly distended with ascites. There is +3 pitting edema up to the mid-thigh. H&P 10/11 Current BMI: 24.0 RD Consult Assessment 10/12: Physical findings: Well nourished. Nutritional Diagnosis: No nutrition diagnosis at this time. Nutritional Goals: Increased PO intake from 50% -75%. Meeting 75% of estimated nutritional needs. Tolerating PO diet by discharge. Treatment: 10/11 Marinol 5mg PO AC BID. Dietary Consult: see above Supplements: 10/11 Ensure TID Please clarify the type of malnutrition, if known: [ ] Moderate Protein-Calorie Malnutrition [ ] Severe Protein-Calorie Malnutrition [ ] Other condition, please specify [ ] Unable to Determine (Template Last Revised: August 2020) MTDD
--- NOTE | 2020-10-13 14:22 | P.PN ---
Subjective HISTORY OF PRESENTING ILLNESS This is a pleasant 70-year-old male past medical history significant for coronary artery disease s/p CABG, metastatic gastric adenocarcinoma, hypertension, Type 2 Diabetes, Dyslpidema, former smoker. He follows in the office with Dr. Gray. We have been asked to see in consultation for congestive heart failure. Patient is seen and examined in the emergency department, family at bedside. At home, patient with worsening confusion, weakness, shortness of breath, and worsening bilateral lower extremity edema. Patient is very hard of hearing. Over the last week patient has been more confused and progressive weakness unable to do activities at home like he used to. His sister decided to bring him to the emergency department. Patient does wear oxygen at home. CT chest 09/29/20 revealed evidence of worsening right lower lung mass/metastatic disease, moderate-sized bilateral pleural effusions, more prominent soft tissue anasarca and pelvic ascites, Severe atherosclerotic change with complete occlusion in the distal abdominal aorta into common iliac arteries bilaterally. Laboratory data reviewed, BNP 1040, troponin negative 1, UA negative, viral PCR negative, sodium 133, potassium 5.4, serum creatinine 1.3, magnesium 2.0, albumin 2.9, total protein 5.4. Patient presented emergency department hypoxic 89% on 2 L nasal cannula 10/12/2020 Patient seen and evaluated in no acute distress. He is sitting up in bed with a traffic safety administrator at the bedside due some confusion and pulling lines this morning. He denies chest pain, shortness of breath, dizziness or palpitations. He is pleasantly confused and conversing appropriately. Blood pressure 83/52 heart rate 77 afebrile maintaining oxygen saturation on nasal cannula. Laboratory data reviewed, sodium 134, potassium 5.3 and creatinine 1.72. IV lasix has been discontinued. PHYSICAL EXAMINATION CONSTITUTIONAL: Frail HEENT: Head is normocephalic. Pupils are equal, round. No JVD. No carotid bruit. CHEST EXAMINATION: Lungs with decreased breath sounds to auscultation. No chest wall tenderness is noted on palpation or with deep breathing. HEART EXAMINATION: Regular rate and rhythm. S1, S2 heard. systolic murmur noted No, gallops or rub. EXTREMITIES: 2+ peripheral pulses, 3+ bilateral lower extremity edema. ASSESSMENT Shortness of breath and lower extremity edema Pleural effusions Acute kidney injury Hypoalbuminemia Coronary artery disease s/p coronary artery bypass graft Diabetes mellitus Hypertension Dyslipidemia Former nicotine dependence PLAN Suspect most of fluid overload is related to protein calorie malnutrition and hypoalbuminemia. We will follow along as needed, please call with further questions or concerns. Nurse Practitioner note has been reviewed, I agree with a documented findings and plan of care. Patient was seen and examined. Objective - Vital Signs Vital signs: Vital Signs Temp 97.5 F L 10/13/20 11:42 Pulse 77 10/13/20 11:42 Resp 18 10/13/20 11:42 BP 83/52 10/13/20 11:42 Pulse Ox 93 L 10/13/20 11:42 Intake & Output 10/12/20 10/13/20 10/13/20 18:59 06:59 18:59 Output Total 375 Balance -375 Weight 71.8 kg Output: Urine 375 Other: Voiding Method Indwelling Catheter Indwelling Catheter Indwelling Catheter # Voids 1 1 - Labs CBC & Chem 7: 10/11/20 07:23 10/13/20 05:34 Labs: Abnormal Lab Results - Last 24 Hours (Table) 10/12/20 10/12/20 10/13/20 Range/Units 15:09 18:35 05:34 Sodium 134 L (137-145) mmol/L Potassium 5.3 H (3.5-5.1) mmol/L Chloride 96 L (98-107) mmol/L Carbon Dioxide 34 H (22-30) mmol/L BUN 61 H (9-20) mg/dL Creatinine 1.72 H (0.66-1.25) mg/dL Glucose 179 H (74-99) mg/dL Plasma Lactic Acid Ken 2.8 H* 3.0 H* (0.7-2.0) mmol/L Microbiology - Last 24 Hours (Table) 10/11/20 15:54 Blood Culture - Preliminary Blood No Growth after 24 hours
[2020-10-13] MEDS: ATORVASTATIN 40 MG TAB PO SCH (16:49)
[2020-10-13] MEDS: TAMSULOSIN 0.4 MG CAP.ER.24H PO SCH (16:50)
--- NOTE | 2020-10-13 20:21 | P.PN ---
Subjective Progress Note Date: 10/13/20 Principal diagnosis: Progressives metastatic cancer lONG DISCUSSION WITH patient and brother and understands overall disease and plan to meet with hospice. He is unable to care for self at home. Objective - Vital Signs Vital signs: Vital Signs Temp 97.5 F L 10/13/20 11:42 Pulse 77 10/13/20 11:42 Resp 18 10/13/20 11:42 BP 83/52 10/13/20 11:42 Pulse Ox 93 L 10/13/20 11:42 Intake & Output 10/12/20 10/13/20 10/13/20 18:59 06:59 18:59 Output Total 375 Balance -375 Weight 71.8 kg Output: Urine 375 Other: Voiding Method Indwelling Catheter Indwelling Catheter Indwelling Catheter # Voids 1 1 - Exam poor historian Very [place] Neck Supple Head NCNT Lungs: Increased effort Heart: Tachy ABdomen: Tender Ext: RETURN AGENT - Labs CBC & Chem 7: 10/11/20 07:23 10/13/20 05:34 Labs: Abnormal Lab Results - Last 24 Hours (Table) 10/12/20 10/12/20 10/13/20 Range/Units 15:09 18:35 05:34 Sodium 134 L (137-145) mmol/L Potassium 5.3 H (3.5-5.1) mmol/L Chloride 96 L (98-107) mmol/L Carbon Dioxide 34 H (22-30) mmol/L BUN 61 H (9-20) mg/dL Creatinine 1.72 H (0.66-1.25) mg/dL Glucose 179 H (74-99) mg/dL Plasma Lactic Acid Ken 2.8 H* 3.0 H* (0.7-2.0) mmol/L Microbiology - Last 24 Hours (Table) 10/11/20 15:54 Blood Culture - Preliminary Blood No Growth after 24 hours Assessment and Plan (1) Confusion Current Visit: Yes Status: Acute Code(s): R41.0 - DISORIENTATION, UNSPECIFIED SNOMED Code(s): 818153058 (2) Hypoxia Current Visit: Yes Status: Acute Code(s): R09.02 - HYPOXEMIA SNOMED Code(s): 605127312 (3) Metastatic cancer Current Visit: Yes Status: Acute Code(s): C79.9 - SECONDARY MALIGNANT NEOPLA SM OF UNSPECIFIED SITE SNOMED Code(s): 756874821 (4) Gastric cancer Current Visit: No Status: Acute Priority: High Code(s): C16.9 - MALIGNANT NEOPLASM OF STOMACH, UNSPECIFIED SNOMED Code(s): 596887908 Plan: Overall worsening progressive disease, prognosis is poor. Patients mental status is wax and waiun, however knowing his overall status for treatment options are not realistic he is adament about remaining full code and refuses hospice involvement. Updated and discussed with patient and brother, band manager present and plan to have hospice evaluate and discharge with hospice care and likely facilty care since unable to manage self care
[2020-10-14 02:34] LABS: Glucose,Whole Blood 229 mg/dL (75-99)
[2020-10-14 08:25] LABS: Anisocytosis Slight; Basophils % (A) 0 %; Eosinophils # (A) 0.1 k/uL (0-0.7); Eosinophils % (A) 1 %; HCT 33.6 % (39.0-53.0); HGB 10.4 gm/dL (13.0-17.5); Lymphocytes # (A) 0.3 k/uL (1.0-4.8); Lymphocytes % (A) 4 %; MCH 30.7 pg (25.0-35.0); MCV 99.1 fL (80.0-100.0); Macrocytosis Slight; Monocytes # (A) 0.5 k/uL (0-1.0); Monocytes % (A) 5 %; Neutrophils # (A) 8.3 k/uL (1.3-7.7); Neutrophils % (A) 90 %; Platelet Count 191 k/uL (150-450); Poikilocytosis Slight; RBC 3.39 m/uL (4.30-5.90); WBC 9.3 k/uL (3.8-10.6)
[2020-10-14] MEDS: ASPIRIN 81 MG PO SCH (09:04)
[2020-10-14] MEDS: valACYclovir 500 MG TAB PO SCH (09:04)
--- NOTE | 2020-10-14 11:16 | CDI ---
Documentation Clarification Form Date: 10/13/2020 01:41:53 PM From: Katiuska De La Torre RN CCDS Admit Date: 10/11/2020 08:24:00 AM Patient Name: Mayco Lobo Visit Number: [id number] Discharge Date: ATTENTION: The Clinical Documentation Specialists (CDI) and [facility] Coding Staff appreciate your assistance in clarifying documentation. Please respond to the clarification below the line at the bottom and electronically sign. The CDI & [facility] Coding staff will review the response and follow-up if needed. Please note: Queries are made part of the Legal Health Record. If you have any questions, please contact the author of this message via ITS. Dr. Ra Felder Moderate to severe protein Malnutrition is documented in the H&P 10/11. Additional clarification regarding the severity of malnutrition is requested. History/Risk Factors: 70-year-old male presents to the ED with worsening confusion and progressive weakness. Recent CT scan of body showed evidence of worsening right lower lung mass with metastatic disease and diffuse anasarca. Medical History: Gastric adenocarcinoma with metastatic disease to lung and spine, chronic respiratory failure and Obstructive uropathy. H&P 10/11. Clinical Indicators: Gastric adenocarcinoma with metastatic cancer to lung and spine. Abdomen is slightly distended with ascites. There is +3 pitting edema up to the mid-thigh. H&P 10/11 Current BMI: 24.0 RD Consult Assessment 10/12: Physical findings: Well nourished. Nutritional Diagnosis: No nutrition diagnosis at this time. Nutritional Goals: Increased PO intake from 50% -75%. Meeting 75% of estimated nutritional needs. Tolerating PO diet by discharge. Treatment: 10/11 Marinol 5mg PO AC BID. Dietary Consult: see above Supplements: 10/11 Ensure TID Please clarify the type of malnutrition, if known: [ X ] Moderate Protein-Calorie Malnutrition [ ] Severe Protein-Calorie Malnutrition [ ] Other condition, please specify [ ] Unable to Determine (Template Last Revised: August 2020) MTDD
[2020-10-14 12:47] VITALS: BP 108/71; PULSE 93; RESP 20; TEMP 98.5
--- NOTE | 2020-10-14 13:55 | P.DS ---
Providers Date of admission: 10/11/20 08:24 Expected date of discharge: 10/14/20 Attending physician: Ra Felder Consults: 10/11/20 08:29 Consult Physician Routine Consulting Provider: Delmer Salgado Consult Reason/Comments: chf Do you want consulting provider notified?: Yes Consult Physician Routine Consulting Provider: Leeroy Casanova Consult Reason/Comments: Established patient Do you want consulting provider notified?: Yes Primary care physician: Fabian Sorto MD Hospital Course: Patient will be discharged to [facility] on hospice. This is a 70-year-old male with very complex past medical history significant for metastatic gastric adenocarcinoma that presented to the emergency room with worsening weakness and confusion. Patient was evaluated in the ER and will be admitted to the hospital for further management of his medical problems noted below. 1. Metabolic encephalopathy, improved significantly. Urinalysis was clean. Brain MRI done on September 15 showed no acute findings or evidence of metastasis. 2. Diffuse anasarca with bilateral pleural effusion, probably secondary to underlying malignancy and hypo-albuminuria. Doubt heart failure. Started on IV Lasix 40 mg twice daily which will be discontinued today secondary to a KI. Seen and evaluated by cardiology. Echocardiogram showed preserved ejection fraction. 3. History of metastatic gastric adenocarcinoma: With metastatic disease to the lung and spine. Computed tomography scan showed progressive disease. Patient received chemoradiation therapy in the past. 4. Obstructive uropathy status post Patel catheter insertion on presentation. I started the patient on Flomax 0.4 mg daily 5. Herpes zoster rash on left chest, time of onset unclear. Patient has some vesicular lesions. I started him on valacyclovir thousand milligrams twice daily day #3 for 7 days 6. Essential hypertension: Blood pressure on the lower side. Home medication discontinue. We'll continue to monitor 7. Acute kidney injury, secondary to hypotension. 8. Moderate protein malnutrition, I ordered ensure 3 times a day. Consulted dietitian for further evaluation. 9. Acute on chronic Chronic hypoxic respiratory failure on home O2: No evidence of PE on CT angiogram Patient Condition at Discharge: Stable Plan - Discharge Summary Discharge Rx Participant: No New Discharge Prescriptions: New Tamsulosin [Flomax] 0.4 mg PO PC-SUPPER cap.er.24h valACYclovir [Valtrex] 1,000 mg PO BID #5 tab Continue Furosemide [Lasix] 20 mg PO AC-BID dronabinoL [Dronabinol] 5 mg PO AC-BID Nitroglycerin Sl Tabs [Nitrostat] 0.4 mg SUBLINGUAL Q5M PRN PRN Reason: Angina Changed Acetaminophen with Codeine [Tylenol w/Codeine #4 Tablet] 1 tab PO Q8H PRN #9 tab PRN Reason: Pain Discontinued Aspirin 325 mg PO DAILY Enalapril Maleate [Vasotec] 5 mg PO W/SUPPER Atorvastatin Calcium [Lipitor] 40 mg PO W/SUPPER amLODIPine [Norvasc] 5 mg PO QAM Isosorbide Mononitrate ER [Imdur] 60 mg PO QAM metFORMIN HCL ER [Glucophage Xr] 500 mg PO AC-BID Isosorbide Mononitrate ER [Imdur] 30 mg PO HS Atenolol [Tenormin] 75 mg PO BID Discharge Medication List Furosemide [Lasix] 20 mg PO AC-BID 10/11/20 [History] Nitroglycerin Sl Tabs [Nitrostat] 0.4 mg SUBLINGUAL Q5M PRN 10/11/20 [History] dronabinoL [Dronabinol] 5 mg PO AC-BID 10/11/20 [History] Acetaminophen with Codeine [Tylenol w/Codeine #4 Tablet] 1 tab PO Q8H PRN #9 tab 10/14/20 [Rx] Tamsulosin [Flomax] 0.4 mg PO PC-SUPPER cap.er.24h 10/14/20 [Rx] valACYclovir [Valtrex] 1,000 mg PO BID #5 tab 10/14/20 [Rx] Follow up Appointment(s)/Referral(s): Fabian Sorto MD [Primary Care Provider] - 1-2 days Discharge Disposition: TRANSFER TO SNF/F
[2020-10-14 20:27] LABS: African American GFR (CKD) 87.4 (60.0-200.0); Anion Gap 10.7 mmol/L (4.00-12.00); Carbon Dioxide 32.3 mmol/L (21.6-31.8); Non-African American GFR(CKD) 75.4 (60.0-200.0); Potassium 4.8 mmol/L (3.5-5.5)
== END 2020-10-14 15:50 ==
LOC: EC 06:35 → INTOOBSV 08:24 → 5NMEDONC 08:24 → UNDODISIN 10-14 15:50
PROVIDERS: ADMIT Internal Medicine; ATTEND Internal Medicine
DX: C78.00 Secondary malignant neoplasm of unspecified lung (principal); J96.21 Acute and chronic respiratory failure with hypoxia; G93.41 Metabolic encephalopathy; E44.0 Moderate protein-calorie malnutrition; C16.9 Malignant neoplasm of stomach, unspecified; N17.9 Acute kidney failure, unspecified; I11.0 Hypertensive heart disease with heart failure; I50.9 Heart failure, unspecified; I25.10 Atherosclerotic heart disease of native coronary artery without angina pectoris; E11.9 Type 2 diabetes mellitus without complications; E78.5 Hyperlipidemia, unspecified; I25.2 Old myocardial infarction; H91.90 Unspecified hearing loss, unspecified ear; R80.9 Proteinuria, unspecified; I25.810 Atherosclerosis of coronary artery bypass graft(s) without angina pectoris; I25.82 Chronic total occlusion of coronary artery; I95.9 Hypotension, unspecified; C79.51 Secondary malignant neoplasm of bone; R18.8 Other ascites; I44.0 Atrioventricular block, first degree; C78.6 Secondary malignant neoplasm of retroperitoneum and peritoneum; B02.9 Zoster without complications; N13.9 Obstructive and reflux uropathy, unspecified; Z20.822 Contact with and (suspected) exposure to COVID-19; Z79.82 Long term (current) use of aspirin; Z99.81 Dependence on supplemental oxygen; Z79.84 Long term (current) use of oral hypoglycemic drugs; Z79.899 Other long term (current) drug therapy; Z88.0 Allergy status to penicillin; Z91.041 Radiographic dye allergy status; Z91.048 Other nonmedicinal substance allergy status; Z92.21 Personal history of antineoplastic chemotherapy; Z87.891 Personal history of nicotine dependence; Z80.1 Family history of malignant neoplasm of trachea, bronchus and lung
CPT/HCPCS: 96376 ×3; 96374; 96375; 99285; 36415; 93005; 93306; 97530 ×2; 97162; 97166; 83880; 80053; 80048 ×3; 83605 ×2; 83735; 84484; 85025 ×2; 85610; 85730; 81003; 87040; 87636; 71046; 71275; G0378 ×4; J1200; J1940 ×3; J2930; Q0167 ×4; Q9967